=== PATIENT | male | born 1960 | race Caucasian/White ===

== ENCOUNTER 2016-06-24 10:37 | Outpatient (CLI) | payer OTHER ==
[~2016-06-24] VITALS: Ht 167.6 cm; Wt 46.8 kg
[~2016-06-24 10:37] MED LIST: DOCU-144 PO; DULR PR; HYDR-3498 PO; PANT40TA3 PO
[2016-06-24 10:49] VITALS: BP 140/80; PULSE 70; RESP 18; Ht 167.6 cm; Wt 46.8 kg
--- NOTE | 2016-06-24 11:49 | CONS ---
[facility] SUBSEQUENT OUTPATIENT CONSULTATION NOTE DATE OF CONSULTATION: 06/24/2016 PLACE OF SERVICE: [facility] Today's Assessment & Plan: A very pleasant 55-year-old gentleman well known to me from his chavez with pancreatic cancer, status post Whipple procedure May 2015 presenting with a left inguinal hernia that appears to be symptomatic. Given strong evidence for progression of disease, it is very important for patient to start chemotherapy with different regimen with hopes of response. Any elective operation in this setting will only take time away from potentially life sustaining therapy and therefore not indicated. I discussed this with patient after discussions with Dr. Briggs and careful review of the data. He appears to understand and agrees with the plan. With above assessment, I recommended the followin. F/u with Dr. Briggs as soon as possible with resumption of different line chemotherapy 2. F/u with us prn Thank you again for allowing us to continue to participate in the care of this very pleasant gentleman and his wonderful family. If there are any questions, please feel free to call me at [phone]. TOTAL VISIT TIME: 45 minutes of which more than half was spent in [id number] discussion with the patient (no family present) as well as coordination of care between multiple physicians and providers. Disclaimer: Inadvertent spelling and grammatical errors are likely due to EHR/ dictation software use and do not reflect on the quality of delivered patient care. Also, please note that the electronic time recorded on this node does not necessarily reflect the actual time of the visit. Updated Clinical Summary: A very pleasant 53-year-old gentleman without significant past medical history prior to his initial presentation in April 2013 for pancreatobiliary abnormalities when he presented with painless jaundice to [facility]. At that time, his only comorbidity was chronic smoking. His jaundice resolved after stent placement. He was followed in a multidisciplinary fashion and treated with the thought of a benign process such as biliary stone disease as the main working diagnosis of his presentation. This approach changed in the ensuing next few months given the patient's increasing pancreatic duct dilatation, presence of a 2 cm mass in the head of the pancreas, although biopsy was negative but was accompanied with progressively increasing CA19-9 levels. I was very concerned about the changes the patient was showing and I had strongly recommended that the patient and family consider undergoing further evaluation and possible consideration for a Whipple procedure. I spent quite a bit of time with the patient and his sister reviewing all findings including detailed review of all his images that we have available from 04/2013. This included review of 2 CT scans as well as 2 MRCP scans and his ERCP pictures. I reviewed the anatomy and the natural history and pathophysiology of pancreatic cancer with the help of printed diagrams of the region as well as using a model of the pancreas and expressed to them my concerns for his changes. Even though we did not have a biopsy-proven malignancy at hand, I had recommended that we strongly consider surgical removal of this area to ensure our ability to be able to impact the patient's survival, should this eventually basket turner to be a malignancy. Obviously, this was stressing the patient and family, but I did believe that they understood my sense of urgency. Despite our best efforts to get the patient through the necessary workup and consideration for a Whipple procedure, the patient was lost to follow up after his 07/18/2014 meeting with me. After reconnecting with the patient and family we had a follow-up CT scan that unfortunately showed possible significant worsening of his pancreatic process. Our thought at that point was aggressive pancreatic malignancy given the cystic mass structures that we had seen in the tail of the pancreas. Given these new findings, we thought that it would be highly unlikely that the patient can benefit from surgical intervention for the pancreatic process, but in order to explore all available options after multidisciplinary consideration, our recommendation was for the patient to undergo a diagnostic laparoscopy for the sole purpose of detecting whether there is obvious metastatic disease to the rest of the peritoneal cavity. This was done on 11/30/2014 and no obvious evidence of metastatic disease was found. Subsequent to this, the patient underwent chemotherapy in conjunction with radiation therapy. His CA-19-9 level peaked at 3500 and his repeat levels on where 408. BMI in November [address] scan 05/22/2015 of abdomen and pelvis shows continued interval decrease in size of the patient's pancreatic head mass with decreased pancreatic ductal dilatation and continued significant interval decrease in size of previously seen enlarged peripancreatic lymph nodes. During his last few visits with us, he appeared to remain overall stable and slightly improved given 4 pound weight gain. Most recent CT scan done on 2015 showed continued improvement in head of the pancreas mass and surrounding lymphadenopathy. Note that the CT reports significant decrease and resolution of mesenteric enhancing lesions that were seen on prior CT in October 2014. I carefully reviewed all of these images and reports. There was no reported enhancing mesenteric or peritoneal nodules that could be seen on the October or March CT in 2014. This mentioned lymph node enlargement in the area, but it would be difficult to ascertain how much of the lymph node enlargements were due to malignancy and how much were due to pancreatitis and inflammation. Given the resolution of significant inflammation around the tail and body of the pancreas, my impression was that these lymph nodes could potentially be inflammatory in nature and not represent metastatic disease. In my opinion, this did not preclude the patient from having surgery (normally, presence of metastatic disease from pancreatic malignancy would be an absolute contraindication for further surgical intervention and we firmly believe this in our practice). At this point, patient had received adequate and what appeared to be effective chemotherapy and given lack of obvious extrapancreatic spread and rather remarkable response, I believed it would be appropriate for us to have another surgical exploration with the goal of completion of Whipple procedure if there were no obvious intraoperative contraindications. I explained this to the patient in detail and reviewed the operation, risks, benefits, and alternatives in detail and answered all his questions to the best my ability. Patient appeared to understand and wishes to proceed. Note that there was no family present during my last 2 visits with the patient. We also presented the patient in a multidisciplinary tumor board and the consensus of the tumor board was in general agreement with our plans although there was discussion about ability to perform an R0 resection in this setting given the inflammation seen around vessels. For a detailed report of my consultation with patient and family, please refer to my multiple separate consultation note and progress notes. Status post Whipple procedure (partial pancreaticoduodenectomy with removal of the head of the pancreas and primary anastomosis). complex portal vein venorrhaphy, and wedge liver resection segment 3 on 06/12/2015. Drain fluid amylase less than 30 on 06/17/2015 and drain DC'd at bedside. Patient DC'd home on 06/17/2015. Postoperative multidisciplinary tumor board recommendation was to consider additional radiation to the area of the uncinate process margin due to microscopic positive disease as well as additional chemotherapy with gemcitabine with Abraxane. This can be done hopefully in the next few months once adequate recovery has taken place. Status post radiation therapy delivery of 9 davion in 4 fractions starting and ending 09/12/2015. CA19-9 2546 05/29/16 (64 on 05/09/13). CT scan in April of 2016 that also supports presence of a left inguinal hernia. Unfortunately, it also shows ill-defined soft-tissue encasing the SMA and narrowing the SMV, compatible with local carcinomatosis. Additional soft tissue noted more inferiorly extending into the root of the mesentery and retroperitoneum. There is also evidence for peritoneal metastases in the upper abdomen, with the dominant lesion increased in size since 02/2016 exam concerning for progression. Enhancing tumor implant in the left anterior abdominal wall and hypoattenuating left hepatic metastasis. Comorbidities: 1. History of regular smoking and drinking, but no other major reported health problems prior to 2014 issues above. 2. Above-mentioned history of painless jaundice and the workup as reviewed above. S/p Whipple and chemoradiation and chemotherapy 3. Status post above-mentioned ERCPs and Whipple 4. S/p three prior hernia repairs in the past (? how many on which side, but reports both sides were repaired in the past with quick recovery; all 3 done on a and by next Wednesday, patient had returned to work. HISTORY OF PRESENT ILLNESS: Patient is a very pleasant 55-year-old gentleman well known to me for treatment of his pancreatic malignancy as outlined above, representing for consultation regarding L groin pain. Reports intermittent crampy pain, worse with activity, better with pain medications. Has had 3 prior hernia repairs in the past. No reported changes in his bowel or bladder habits or blood in the stool or urine. He does not report any changes in his hearing or vision, difficulty with breathing or swallowing. No new skin rashes, joint pain, musculoskeletal disease, neurologic, psychiatric, or psychologic problems either. + weight loss and hair loss with ongoing cancer care; stopped chemo 2-3 weeks ago. Plan is restart of FOLFOX in 2-3 weeks. ALLERGIES: NO KNOWN DRUG ALLERGIES. HOME MEDICATIONS: See EHR SOCIAL HISTORY: The patient lives at home. He does report drinking whiskey on an occasional basis and also smoking for many years. No history of intravenous drug use. FAMILY HISTORY: The patient's father from abdominal cancer which was thought to be colon cancer, but details are missing. No obvious prior hepatobiliary or pancreatic type of tumors. REVIEW OF SYSTEMS: Other than the above-mentioned, there are no other pertinent positives or pertinent negatives in a complete 14-point review of systems. PHYSICAL EXAMINATION: GENERAL: The patient appears to be a very pleasant gentleman of [place] descent, appearing older than stated age and in no acute distress. His BMI is 16.7. VITAL SIGNS: Temperature is 97.7. Blood pressure 140/80, pulse 70, respiratory rate 18, pulse oximetry 99% on room air. HEENT: His head is normocephalic and atraumatic. His extraocular muscles and hearing are grossly intact bilaterally and symmetrically. His sclerae are nonicteric. His oral cavity is clear and his oral mucosa appeared to be pink and moist. NECK: Supple. There is no lymphadenopathy or JVD. There is no submental, submandibular or supraclavicular lymphadenopathy. CHEST: Rises symmetrically with each breath, and he is breathing comfortably. He has no audible wheezes, rales or rhonchi. HEART: His pulse is regular and palpable on the right wrist. His carotid pulses are also palpable bilaterally and symmetrically. His capillary refill is normal. ABDOMEN: Soft, nontender, and nondistended. His prior Whipple operation incision is clean, dry and intact without any evidence of erythema, edema, discharge or hernia. There is a small raised area on the lateralmost aspect of the left side of the incision that appears to be a suture granuloma. The right groin shows no evidence of any hernia with Valsalva maneuver. Left groin area shows a bulge that can easily be reduced and is mildly tender to palpation without any changes of skin overlying it. The area does get bigger with Valsalva maneuver, indicating the presence of a hernia. EXTREMITIES: Lower extremities contain no pitting edema bilaterally and symmetrically. NEUROLOGIC: He is awake, alert, and follows commands appropriately. LABORATORY DATA: 05/29/16: WBC 2.7; plt 147; Cr 0.59; CA19-9 2546 (64 on 05/09/13) ; alk phos 141; 2014: Hepatitis C antibody nonreactive, hepatitis B core antibody nonreactive, hepatitis A antibody reactive. IMAGING: The patient had a CT scan in April of 2016 that also supports presence of a left inguinal hernia. Unfortunately, it also shows ill-defined soft-tissue encasing the SMA and narrowing the SMV, compatible with local carcinomatosis. Additional soft tissue noted more inferiorly extending into the root of the mesentery and retroperitoneum. There is also evidence for peritoneal metastases in the upper abdomen, with the dominant lesion increased in size since 02/2016 exam concerning for progression. Enhancing tumor implant in the left anterior abdominal wall and hypoattenuating left hepatic metastasis. Dictated By: STACY SHAFFER/NTS Conf#: [id number] DID#: [id number] CC: OPAL PERDOMO MD; RAMESH BRIGGS MD;*EndCC* MTDD
== END 2016-06-24 16:51 | disposition home or self-care (01) ==
LOC: HPC 10:37
PROVIDERS: ATTEND Transplant Surgery
DX: C25.9 Malignant neoplasm of pancreas, unspecified (principal); R17 Unspecified jaundice; F17.200 Nicotine dependence, unspecified, uncomplicated
CPT/HCPCS: G0463

== ENCOUNTER 2016-07-13 10:04 | Day surgery (SDC) | payer OTHER ==
[2016-07-13] VITALS (11 sets, daily range): BP systolic 116–161; BP diastolic 53–95; PULSE 60–89; RESP 16–35; Ht 165.1 cm; Wt 43.7 kg
[~2016-07-13] VITALS: Ht 165.1 cm; Wt 43.7 kg
[~2016-07-13 10:04] MED LIST changes: +PROPOFOL 200 MG INJ ONE
--- NOTE | 2016-07-13 12:17 | HPN ---
Date/Time of Note Date/Time of Note DATE: 07/13/16 TIME: 12:16 Interval H&P Admission Note Pt. seen H&P reviewed: No system changes Pt. seen H&P reviewed. No system changes (I attest that I have seen and examined the patient and reviewed the operation in detail, as well as its risks , benefits and alternatives of the operation). I attest that I have seen and examined the patient and reviewed in detail the operation, and its associated risks, benefits and alternative. I have answered all the patient's questions to the best of my ability and the patient wishes to proceed. Please refer to rest of electronic medical record for additional updates. STACY GUO M.D. Jul 13, 2016 12:17
[2016-07-13] MEDS ORDERED: MIDAZOLAM 1 MG/ML 2 ML INJ ONE (12:20)
[2016-07-13] MEDS ORDERED: BUPIVACAINE 0.25%/EPI (SDV) 30 ML INJ ONE (12:20)
[2016-07-13] MEDS ORDERED: METOCLOPRAMIDE 10 MG INJ ONE (12:20)
[2016-07-13] MEDS ORDERED: ROCURONIUM 50 MG INJ ONE (12:20)
[2016-07-13] MEDS ORDERED: POLYMYXIN/BACITRACIN 1L IRRIG ONE (12:20)
[2016-07-13] MEDS ORDERED: CEFAZOLIN 2 GM/50 ML (PMX) 50 ML IVPB ONE (12:30)
[2016-07-13] MEDS ORDERED: D5W-0.45 NACL + KCL 20 MEQ 1,000 ML IV SCH (12:30)
[2016-07-13] MEDS ORDERED: PHENYLephrine (100 MCG/ML) 5ML SYG ONE (12:43)
[2016-07-13] MEDS ORDERED: CEFAZOLIN 1 GM INJ ONE (12:44)
[2016-07-13] MEDS ORDERED: ROPIVACAINE 0.2% 20 ML VIAL ONE (13:30)
[2016-07-13] MEDS ORDERED: NEOSTIGMINE 3 MG/3 ML SYRINGE ONE (13:53)
[2016-07-13] MEDS ORDERED: GLYCOPYRROLATE 0.4 MG INJ ONE (13:53)
[2016-07-13] MEDS ORDERED: LIDOCAINE 2% (SDV) 5 ML INJ ONE (14:00)
[2016-07-13] MEDS ORDERED: ONDANSETRON 4 MG INJ IV PRN (14:00)
[2016-07-13] MEDS ORDERED: DIPHENHYDRAMINE 50 MG INJ IV PRN (14:00)
[2016-07-13] MEDS ORDERED: OXYCODONE/ACETAMINOPHEN (5/325) TAB PO PRN ×2 (14:00)
[2016-07-13] MEDS ORDERED: MEPERIDINE 25 MG INJ IV PRN (14:00)
[2016-07-13] MEDS ORDERED: HYDROmorphONE (0.2 MG/ML) 10ML SYG IV PRN ×3 (14:00)
[2016-07-13] MEDS ORDERED: METOCLOPRAMIDE 10 MG INJ IV PRN (14:00)
--- NOTE | 2016-07-13 14:15 | OPR ---
Date/Time of Note Date/Time of Note DATE: 07/13/16 TIME: 14:11 Operative Report Free Text/Dictation [facility] Immediate Post Operative Note: Pre-op Diagnosis: L inguinal hernia, recurrent and stage 4 metastatic pancreas cancer, s/p Whipple procedure Post-Op Diagnosis: L inguinal hernia, recurrent and stage 4 metastatic pancreas cancer, s/p Whipple procedure Procedure: Recurrent L inguinal hernia repair, open (no mesh) Surgeon: Mari Orozco MD Lift Team Technician: None Anesthesia: 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 STACY OROZCO M.D. Jul 13, 2016 14:14
[2016-07-13] MEDS ORDERED: BISACODYL 10 MG SUPP PR PRN (14:30)
[2016-07-13] MEDS ORDERED: DOCUSATE SODIUM 100 MG CAP PO PRN (14:30)
[2016-07-13] MEDS ORDERED: HYDROCODONE/APAP (5/325) TAB PO PRN ×2 (14:30)
--- NOTE | 2016-07-13 22:29 | OPR ---
[facility] Outpatient Operative Note DATE OF OPERATION: 07/13/2016 PLACE OF SERVICE: [facility] Pre-op Diagnosis: 1. Symptomatic L inguinal hernia 2. History of regular smoking and drinking, but no other major reported health problems prior to 2013 issues above. 3. History of painless jaundice and the workup as reviewed below. S/p Whipple and chemoradiation and chemotherapy 4. Status post ERCPs and Whipple 4. S/p three prior hernia repairs in the past (? how many on which side, but reports both sides were repaired in the past with quick recovery; all 3 done on a and by wednesday, patient had returned to work. Post-Op Diagnosis: 1. Symptomatic L inguinal hernia 2. History of regular smoking and drinking, but no other major reported health problems prior to 2013 issues above. 3. History of painless jaundice and the workup as reviewed below. S/p Whipple and chemoradiation and chemotherapy 4. Status post ERCPs and Whipple 4. S/p three prior hernia repairs in the past (? how many on which side, but reports both sides were repaired in the past with quick recovery; all 3 done on a and by wednesday, patient had returned to work. Procedure: Open L inguinal hernia repair (no mesh) Surgeon: Mari Orozco MD Civil Drafter: None Anesthesia: ZARI Anesthesiologist: Beena Alamo MD Findings: Recurrent L inguinal hernia Updated Clinical Summary: A very pleasant 53-year-old gentleman without significant past medical history prior to his initial presentation in April 2013 for pancreatobiliary abnormalities when he presented with painless jaundice to [facility]. At that time, his only comorbidity was chronic smoking. His jaundice resolved after stent placement. He was followed in a multidisciplinary fashion and treated with the thought of a benign process such as biliary stone disease as the main working diagnosis of his presentation. This approach changed in the ensuing next few months given the patient's increasing pancreatic duct dilatation, presence of a 2 cm mass in the head of the pancreas, although biopsy was negative but was accompanied with progressively increasing CA19-9 levels. I was very concerned about the changes the patient was showing and I had strongly recommended that the patient and family consider undergoing further evaluation and possible consideration for a Whipple procedure. I spent quite a bit of time with the patient and his sister reviewing all findings including detailed review of all his images that we have available from 04/2013. This included review of 2 CT scans as well as 2 MRCP scans and his ERCP pictures. I reviewed the anatomy and the natural history and pathophysiology of pancreatic cancer with the help of printed diagrams of the region as well as using a model of the pancreas and expressed to them my concerns for his changes. 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 Obviously, this was stressing the patient and family, but I did believe that they understood my sense of urgency. Despite our best efforts to get the patient through the necessary workup and consideration for a Whipple procedure, the patient was lost to follow up after his 07/18/2014 meeting with me. After reconnecting with the patient and family we had a follow-up CT scan that unfortunately showed possible significant worsening of his pancreatic process. Our thought at that point was aggressive pancreatic malignancy given the cystic mass structures that we had seen in the tail of the pancreas. Given these new findings, we thought that it would be highly unlikely that the patient can benefit from surgical intervention for the pancreatic process, but in order to explore all available options after multidisciplinary consideration, our recommendation was for the patient to undergo a diagnostic laparoscopy for the sole purpose of detecting whether there is obvious metastatic disease to the rest of the peritoneal cavity. This was done on 11/30/2014 and no obvious evidence of metastatic disease was found. Subsequent to this, the patient underwent chemotherapy in conjunction with radiation therapy. His CA-19-9 level peaked at 3500 and his repeat levels on where 408. BMI in November [address] scan 05/22/2015 of abdomen and pelvis shows continued interval decrease in size of the patient's pancreatic head mass with decreased pancreatic ductal dilatation and continued significant interval decrease in size of previously seen enlarged peripancreatic lymph nodes. During his last few visits with us, he appeared to remain overall stable and slightly improved given 4 pound weight gain. Most recent CT scan done on 2015 showed continued improvement in head of the pancreas mass and surrounding lymphadenopathy. Note that the CT reports significant decrease and resolution of mesenteric enhancing lesions that were seen on prior CT in October 2014. I carefully reviewed all of these images and reports. There was no reported enhancing mesenteric or peritoneal nodules that could be seen on the October or March CT in 2014. This mentioned lymph node enlargement in the area, but it would be difficult to ascertain how much of the lymph node enlargements were due to malignancy and how much were due to pancreatitis and inflammation. Given the resolution of significant inflammation around the tail and body of the pancreas, my impression was that these lymph nodes could potentially be inflammatory in nature and not represent metastatic disease. In my opinion, this did not preclude the patient from having surgery (normally, presence of metastatic disease from pancreatic malignancy would be an absolute contraindication for further surgical intervention and we firmly believe this in our practice). At this point, patient had received adequate and what appeared to be effective chemotherapy and given lack of obvious extrapancreatic spread and rather remarkable response, I believed it would be appropriate for us to have another surgical exploration with the goal of completion of Whipple procedure if there were no obvious intraoperative contraindications. I explained this to the patient in detail and reviewed the operation, risks, benefits, and alternatives in detail and answered all his questions to the best my ability. Patient appeared to understand and wishes to proceed. Note that there was no family present during my last 2 visits with the patient. We also presented the patient in a multidisciplinary tumor board and the consensus of the tumor board was in general agreement with our plans although there was discussion about ability to perform an R0 resection in this setting given the inflammation seen around vessels. For a detailed report of my consultation with patient and family, please refer to my multiple separate consultation note and progress notes. Status post Whipple procedure (partial pancreaticoduodenectomy with removal of the head of the pancreas and primary anastomosis). complex portal vein venorrhaphy, and wedge liver resection segment 3 on 06/12/2015. Drain fluid amylase less than 30 on 06/17/2015 and drain DC'd at bedside. Patient DC'd home on 06/17/2015. Postoperative multidisciplinary tumor board recommendation was to consider additional radiation to the area of the uncinate process margin due to microscopic positive disease as well as additional chemotherapy with gemcitabine with Abraxane. This can be done hopefully in the next few months once adequate recovery has taken place. Status post radiation therapy delivery of 9 davion in 4 fractions starting and ending 09/12/2015. CA19-9 [id number] 05/29/16 (64 on 05/09/13). CT scan in April of 2016 that also supports presence of a left inguinal hernia. Unfortunately, it also shows ill-defined soft-tissue encasing the SMA and narrowing the SMV, compatible with local carcinomatosis. Additional soft tissue noted more inferiorly extending into the root of the mesentery and retroperitoneum. There is also evidence for peritoneal metastases in the upper abdomen, with the dominant lesion increased in size since 02/2016 exam concerning for progression. Enhancing tumor implant in the left anterior abdominal wall and hypoattenuating left hepatic metastasis. Comorbidities: 1. History of regular smoking and drinking, but no other major reported health problems prior to 2014 issues above. 2. Above-mentioned history of painless jaundice and the workup as reviewed above. S/p Whipple and chemoradiation and chemotherapy 3. Status post above-mentioned ERCPs and Whipple 4. S/p three prior hernia repairs in the past (? how many on which side, but reports both sides were repaired in the past with quick recovery; all 3 done on a and by next Wednesday, patient had returned to work. OPERATIVE DETAILS: After obtaining informed consent, the patient was brought into the operating room and was placed in a normal supine position where successful general endotracheal tube anesthesia was performed. The patient's groin was prepped and draped in the usual sterile fashion after clipping the hair with clippers, and then we called a surgical time-out where patient's identification, date of , nature of the operation, presence of needed equipment, and any other concerns were agreed and reviewed by all members of the operating room team. I then made a skin incision in the left inguinal area after injecting the site with 0.25% Marcaine with epinephrine using scalpel going through the skin and then cautery to go through the subcutaneous fat. Due to the reoperative nature , the anatomy was significantly distorted. I could not identify the ilioinguinal or the genitofemoral nerves. I did go through a small amount of very thin appearing external fascia and could identify and dissect the contents of the cord going into the left scrotum. There appeared to be an incarcerated amount of omentum that was coming out of the area of the Ridge's ligament which appeared to be at the edge of where the mesh would have been. We identified the mesh itself and then after very careful dissection were able to circumferentially get around the area of the omentum. We were careful to make sure that there were no intestinal contents within this. The area of the opening was only about 5 or 6 mm and there was no intestine within the incarcerated omentum. Once I pared down the amount of the sac, I went ahead and placed a stick tie using 3-0 Vicryl suture to then help transect the incarcerated omentum and the hernia sac and sent this to pathology for permanent sections. We then dropped the rest of the patient's side omentum into the abdominal cavity and then closed the 5 mm skin incision using interrupted 2-0 PDS suture [id number] (x2). This closed the defect very nicely and there was no need to use any further mesh to support the area. We then ensured adequate hemostasis and then closed the anterior fascia using 3-0 Vicryl suture followed by washing the wounds again and then closing the skin using running 4-0 Monocryl suture. Light dressing was then applied. I made sure that the testicles were inside of the scrotum. At the end the operation, both the sponge count and needle count were reportedly correct x2. The patient tolerated procedure without any reported complications. ESTIMATED BLOOD LOSS: Less than 5 mL. BLOOD OR BLOOD PRODUCT TRANSFUSIONS: None. SPECIMENS: Hernia sac along with omentum. COMPLICATIONS: None. DISPOSITION: To PACU. Disclaimer: Inadvertent spelling and grammatical errors are likely due to EHR/ dictation use and do not reflect on the quality of the delivered patient care. Dictated By: STACY SHAFFER/MITRA Conf#: [id number] DID#: [id number] MUKESH
== END 2016-07-13 15:38 | disposition home or self-care (01) ==
LOC: SDS 10:04
PROVIDERS: ATTEND Transplant Surgery
DX: K40.90 Unilateral inguinal hernia, without obstruction or gangrene, not specified as recurrent (principal); C79.89 Secondary malignant neoplasm of other specified sites; C25.9 Malignant neoplasm of pancreas, unspecified; Z87.891 Personal history of nicotine dependence
CPT/HCPCS: 49505; 88302; J0690; J1170; J2250; J2370; J2710; J2765; J2795; Z7512; Z7610

== ENCOUNTER 2016-07-16 14:00 | Emergency (ER) | payer OTHER ==
[~2016-07-16] VITALS: Ht 165.1 cm; Wt 65.0 kg
[~2016-07-16 14:00] MED LIST changes: -PROPOFOL 200 MG INJ ONE
[2016-07-16 14:13] VITALS: Ht 165.1 cm; Wt 65.0 kg
[2016-07-16] MEDS ORDERED: SOD CHLORIDE 0.9% 1,000 ML IV STA (14:37)
[2016-07-16 15:23] LABS: ADD SCAN DIFF NO
[2016-07-16 15:25] LABS: BASOPHILS % 0.3 % (0.0-2.0); EOSINOPHILS # 0.3 10^3/ul (0.0-0.5); EOSINOPHILS % 4.2 % (0.0-7.0); HEMATOCRIT 37.9 % (42.0-52.0); HEMOGLOBIN 12.8 g/dl (14.0-18.0); LYMPHOCYTES # 0.8 10^3/ul (0.8-2.9); LYMPHOCYTES % 10.3 % (15.0-51.0); MEAN CORPUSCULAR HGB CONC 33.8 g/dl (32.0-37.0); MEAN CORPUSCULAR VOLUME 91.8 fl (82.0-101.0); MEAN PLATELET VOLUME 9.4 fl (7.4-10.4); MONOCYTE # 0.7 10^3/ul (0.3-0.9); MONOCYTES % 8.9 % (0.0-11.0); PLATELET COUNT 233 10^3/UL (140-415); RED BLOOD COUNT 4.13 10^6/ul (4.70-6.10); WHITE BLOOD COUNT 7.9 10^3/ul (4.8-10.8)
[2016-07-16] MEDS ORDERED: HYDROmorphONE 1 MG/ML SYG IV STA (15:30)
[2016-07-16 15:33] LABS: ALBUMIN 3.3 g/dl (3.3-4.9); CHLORIDE 101 mmol/L (97-110); POTASSIUM 3.8 mmol/L (3.5-5.1); SODIUM 141 mmol/L (135-144)
[2016-07-16 15:35] LABS: CREATININE 0.59 mg/dl (0.61-1.24); INR 0.99; PROTIME 13.1 Sec (12.2-14.2)
[2016-07-16 15:36] LABS: ALANINE AMINOTRANSFERASE 27 IU/L (13-69); ALKALINE PHOSPHATASE 115 IU/L (42-121); ANION GAP 13 (8-16); ASPARTATE AMINO TRANSFERASE 25 IU/L (15-46); BILIRUBIN,INDIRECT 0.1 mg/dl (0-1.1); BILIRUBIN,TOTAL 0.1 mg/dl (0.2-1.3); BLOOD UREA NITROGEN 11 mg/dl (7-20); CARBON DIOXIDE 31 mmol/L (21-31); GLUCOSE 107 mg/dl (70-220); TOTAL PROTEIN 6.3 g/dl (6.1-8.1)
--- NOTE | 2016-07-16 15:43 | RADRPT ---
PROCEDURE: CT Abdomen and Pelvis without contrast. CLINICAL INDICATION: Pancreatic cancer, left upper quadrant lump TECHNIQUE: CT of the abdomen and pelvis was performed on a multi-detector scanner without IV contr ast. Coronal and sagittal images were reformatted from the axial data set. One or more of the foll owing dose reduction techniques were used: automated exposure control, adjustment of the mA and/or kV according to patient size, use of iterative reconstruction technique. CTDI = 4.32 mGy. DLP = 274 .93 mGy-cm. COMPARISON: CT, 05/26/2016; PET CT, 11/05/2015 FINDINGS: CT abdomen: The lung bases are clear. The heart size is normal, without pericardial effusion. The patient is s tatus post Whipple procedure, including cholecystectomy, partial gastrectomy, gastrojejunostomy, par tial pancreatectomy, pancreaticojejunostomy, choledochojejunostomy, and duodenectomy. Poorly define d mass is again seen anteriorly in the left hepatic lobe, measuring approximately 2.8 cm (3-38), pre viously 2.4 cm (2-36). No biliary dilatation is identified. Poorly defined mass is seen in the street creatic resection bed, measuring approximately 3.4 x 2.3 cm (3-65), previously 3.3 x 2.4 cm. Spleen , adrenal glands and kidneys are unremarkable. No urolithiasis or obstructive uropathy is identifie d. Solid appearing ovoid nodule is seen involving left upper quadrant anterior abdominal wall musculatu re, measuring approximately 3.2 x 2.0 cm (3-48), previously 2.6 x 1.5 cm. Solid peritoneal nodules are again seen in the right upper quadrant measuring up to approximately 2.0 x 1.6 cm (3-47), previo usly 1.9 x 1.3 cm. The aorta is of normal caliber. Aortic vascular calcifications are present. CT pelvis: No bowel obstruction, free intraperitoneal air or abscess is identified. Mild retained fecal materi al is suggestive of constipation. No diverticulosis, diverticulitis or colitis is identified. The appendix is well visualized and normal. Urinary bladder is grossly unremarkable. No pelvic mass, f ree fluid or lymphadenopathy is identified. The surrounding osseous structures are remarkable for degenerative spondylosis of the spine. No ost eolytic or osteoblastic lesion is detected. IMPRESSION: 1. Metastatic implant is seen involving left upper quadrant anterior abdominal wall musculature, mi ldly increased in size when compared to the prior CT, presumably corresponding to the palpable lump noted in the clinical history. 2. Additional metastatic peritoneal nodules, left hepatic metastasis, and recurrent neoplasm in the pancreatic resection bed are again seen, all of which are stable and/or mildly increased in size, a s described above, suggestive of neoplastic progression. 3. The patient is again noted to be status post Whipple procedure. 4. Mild retained fecal material may indicate constipation. RPTAT: EE .Rivera Sears MD, MD Date Time Electronically viewed and signed by .Rivera Sears MD, MD on 07/16/2016 15:43 .R/
[2016-07-16] MEDS ORDERED: HYDR-902 PO (15:45)
[2016-07-16 15:52] LABS: TROPONIN-I < 0.012 ng/ml (0.00-0.12)
[2016-07-16 16:23] LABS: ADD UMIC NO; URINE BILIRUBIN (Dip) NEGATIVE (NEGATIVE); URINE BLOOD (Dip) NEGATIVE (NEGATIVE); URINE COLOR LT. YELLOW (YELLOW); URINE GLUCOSE (Dip) NEGATIVE (NEGATIVE); URINE KETONES (Dip) NEGATIVE (NEGATIVE); URINE LEUKOCYTE ESTERASE (Dip) NEGATIVE (NEGATIVE); URINE NITRITE (Dip) NEGATIVE (NEGATIVE); URINE TOTAL PROTEIN (Dip) NEGATIVE (NEGATIVE); URINE UROBILINOGEN (Dip) 0.2 E.U./dL (0.1-1.0)
[2016-07-16 17:04] VITALS: BP 165/89; PULSE 45; RESP 18
[2016-07-16] MEDS ORDERED: OXYC-209 PO (17:14)
--- NOTE | 2016-07-16 19:26 | ERD ---
ER Documentation Chief Complaint Date/Time DATE: 07/16/16 TIME: 19:11 Chief Complaint LEFT UPPER QUADRANT PAIN,Pt HAS PANCREATIC CANCER.ON CHEMO. HPI 55-year-old man here with complaints of left upper quadrant abdominal and left lateral chest wall pain similar to previous episodes. Patient does have a history of metastatic pancreatic cancer and is status post Whipple procedure. He was diagnosed in 2013 and has undergone both chemo and radiation therapy. He follows up regularly with his primary care physician, hematology oncologist, and surgeon. Patient denies recent jaundice, no vomiting or diarrhea, no blood per rectum or melena, no recent increased weight loss, no chest pain or shortness of breath. ROS All systems reviewed and are negative except as per history of present illness. Medications Home Meds Active Scripts Oxycodone HCl/Acetaminophen (Percocet 10-325 mg Tablet) 1 Each Tablet, 1 EACH PO TID for PAIN LEVEL 6-10, #20 TAB Prov:DEMETRIA MCCLELLAN MD 07/16/16 Reported Medications Hydrocodone/Acetaminophen ([place] 10-325 Tablet) 1 Each Tablet, 1 EACH PO TID, TAB 07/16/16 Discontinued Scripts Bisacodyl* (Bisacodyl*) 10 Mg Supp, 10 MG MS BID Y for CONSTIPATION, #1 SUPP Prov:LENIN BARAJAS MD 06/17/15 Pantoprazole* (Protonix*) 40 Mg Tablet.dr, 40 MG PO DAILY, #1 TAB Prov:LENIN BARAJAS MD 06/17/15 Hydrocodone Bit/Acetaminophen (Anexsia 5-325 Mg Tablet) 1 Tab Tab, 1 TAB PO Q4H Y for PAIN LEVEL 4-7, #1 TAB Prov:LENIN BARAJAS MD 06/17/15 Docusate Sodium* (Colace*) 100 Mg Cap, 100 MG PO BID Y for CONSTIPATION, #1 CAP Prov:LENIN BARAJAS MD 06/17/15 Allergies Allergies: Coded Allergies: No Known Allergy (Unverified , 07/16/16) PMhx/Soc Metastatic pancreatic cancer status post chemo and radiation therapy, previous pancreaticoduodenectomy with removal of pancreatic head and portal vein venorrhaphy with wedge liver resection. Opioid dependence History of Surgery: Yes (THREE HERNIA REPAIR, PORT-A-CATH RIGHT UPPER CHEST) Anesthesia Reaction: No Hx Neurological Disorder: No Hx Respiratory Disorders: No Hx Cardiac Disorders: No Hx Psychiatric Problems: No Hx Miscellaneous Medical Probl: Yes (PANCREATIC CANCER) Hx Alcohol Use: No Hx Substance Use: No Hx Tobacco Use: Yes (ONE PACK A DAY) Smoking Status: Current every day smoker FmHx Family History: No diabetes Physical Exam Vitals Vital Signs Date Time Temp Pulse Resp B/P Pulse Ox O2 Delivery O2 Flow Rate FiO2 07/16/16 17:04 45 18 165/89 98 Room Air 07/16/16 14:13 98.9 81 18 132/82 98 Physical Exam GENERAL: Well-developed, well-nourished, appears dehydrated, in pain HEENT: Dry mucous membranes, pink conjunctiva, no cervical spine tenderness or step-off deformities, no goiter, no jaundice or icterus, extraocular movements intact without pain. No submandibular induration, and no pharyngeal erythema NEURO: Alert and oriented 3, cranial nerves II through XII intact bilaterally, pupils equal round reactive to light, no focal deficits or facial asymmetry, sensation intact distally Strength 5/5 in upper and lower extremities bilaterally CARDIAC: Bradycardic and regular, no murmurs rubs or gallops LUNGS: Clear bilaterally no wheezing crackles or stridor ABDOMEN: Soft nontender, no guarding, no rigidity, no rebound, no psoas sign no obturator sign. Normoactive bowel sounds SKIN: Warm and dry to touch, no abrasions, contusions, or hematomas, no lacerations, no ecchymosis, no target lesions, and without ulcers EXTREMITIES: No clubbing cyanosis or edema, calves are bilaterally symmetrical, no Homans sign, no popliteal cord sign. Distal pulses equal and bilateral PSYCH: Normal affect without agitation or irritability Result Diagram: 07/16/16 1500 07/16/16 1500 Results 24 hrs Laboratory Tests Test 07/16/16 15:00 07/16/16 15:45 White Blood Count 7.910^3/ul Red Blood Count 4.1310^6/ul Hemoglobin 12.8g/dl Hematocrit 37.9% Mean Corpuscular Volume 91.8fl Mean Corpuscular Hemoglobin 31.0pg Mean Corpuscular Hemoglobin Concent 33.8g/dl Red Cell Distribution Width 14.0% Platelet Count 57460^3/UL Mean Platelet Volume 9.4fl Neutrophils % 76.0% Lymphocytes % 10.3% Monocytes % 8.9% Eosinophils % 4.2% Basophils % 0.3% Nucleated Red Blood Cells % 0.0/100WBC Neutrophils # 6.010^3/ul Lymphocytes # 0.810^3/ul Monocytes # 0.710^3/ul Eosinophils # 0.310^3/ul Basophils # 0.010^3/ul Nucleated Red Blood Cells # 0.010^3/ul Prothrombin Time 13.1Sec Prothrombin Time Ratio 1.0 INR International Normalized Ratio 0.99 Sodium Level 141mmol/L Potassium Level 3.8mmol/L Chloride Level 101mmol/L Carbon Dioxide Level 31mmol/L Anion Gap 13 Blood Urea Nitrogen 11mg/dl Creatinine 0.59mg/dl Glucose Level 107mg/dl Calcium Level 9.0mg/dl Total Bilirubin 0.1mg/dl Direct Bilirubin 0.00mg/dl Indirect Bilirubin 0.1mg/dl Aspartate Amino Transf (AST/SGOT) 25IU/L Alanine Aminotransferase (ALT/SGPT) 27IU/L Alkaline Phosphatase 115IU/L Troponin I < 0.012ng/ml Total Protein 6.3g/dl Albumin 3.3g/dl Globulin 3.00g/dl Albumin/Globulin Ratio 1.10 Lipase < 10U/L Urine Color LT. YELLOW Urine Clarity CLEAR Urine pH 7.0 Urine Specific [place] 1.015 Urine Ketones NEGATIVE Urine Nitrite NEGATIVE Urine Bilirubin NEGATIVE Urine Urobilinogen 0.2 E.U./dL Urine Leukocyte Esterase NEGATIVE Urine Hemoglobin NEGATIVE Urine Glucose NEGATIVE% Urine Total Protein NEGATIVE Current Medications Medications (Trade) Dose Ordered Sig/Veronika Route PRN Reason Start Time Stop Time Status Last Admin Dose Admin Sodium Chloride (NS) 1,000 ml @ 1,000 mls/hr Q1H STAT IV 07/16/16 14:37 07/16/16 15:36 DC 07/16/16 14:48 Hydromorphone HCl (Dilaudid) 1 mg ONCE STAT IV 07/16/16 15:30 07/16/16 15:31 DC 07/16/16 15:38 Procedures/MDM IV line was established patient was placed on cardiac monitor technician rhythm strip revealed a sinus bradycardia at about 60 bpm with upright P and T waves. Patient was afebrile. EKG performed, read by me revealed a sinus bradycardia 52 bpm, normal axis, right ventricular conduction delay with a QRS duration of 102 ms, no concerning ST elevations or depressions noted. CT scan of the abdomen and pelvis was performed revealing metastatic mass to the left upper quadrant near the pancreas and increased nodules, mass has grown moderately in size although was there on previous CT scan. Please refer to radiologist dictation for full report. CBC was normal, electrolytes unremarkable, liver function tests normal, troponin was negative. Urine analysis was negative for infection. Patient's pain was controlled and he was hydrated here in the ED. Differential diagnoses considered, included but not limited to acute coronary syndrome, pulmonary embolism, aortic dissection, abdominal aortic aneurysm, sepsis, stroke, meningitis, encephalitis, pneumonia, appendicitis, cholecystitis , bowel obstruction, pyelonephritis, nephrolithiasis, cystitis, as well as metabolic, hematologic, and electrolyte abnormalities. As well as abscess, cellulitis, fractures, and dislocations. Patient feels much better at this time, and vital signs are normal, symptoms have improved. I did give strict instructions to return to the ED if symptoms continue or worsen, patient will otherwise follow-up with primary care physician. Patient understood instructions and agreed to plan. Departure Diagnosis: Primary Impression: Pancreatic cancer Pancreatic malignancy location: head of pancreas Qualified Code: C25.0 - Malignant neoplasm of head of pancreas Additional Impressions: Metastasis from pancreatic cancer Chronic pain Chronic pain type: chronic pain syndrome Qualified Code: G89.4 - Chronic pain syndrome Dehydration Condition: Good Patient Instructions: What Is Pancreatic Cancer?, Chronic Pain DEMETRIA MCCLELLAN MD Jul 16, 2016 19:26
== END 2016-07-16 17:23 | disposition home or self-care (01) ==
LOC: E/R 14:00
DX: C25.0 Malignant neoplasm of head of pancreas (principal); G89.4 Chronic pain syndrome; E86.0 Dehydration; F17.210 Nicotine dependence, cigarettes, uncomplicated
CPT/HCPCS: 74176; 80053; 81003; 83690; 84484; 85025; 85610; 93005; J1170; J7030; 36415; 96374

== ENCOUNTER 2016-07-22 11:14 | Outpatient (CLI) | payer OTHER ==
[~2016-07-22] VITALS: Ht 167.6 cm; Wt 44.1 kg
[2016-07-22 11:14] VITALS: BP 142/89; PULSE 110; RESP 20; Ht 167.6 cm; Wt 44.1 kg
[~2016-07-22 11:14] MED LIST changes: -DOCU-144 PO; -DULR PR; -HYDR-3498 PO; +HYDR-902 PO; +OXYC-209 PO; -PANT40TA3 PO
--- NOTE | 2016-07-22 16:46 | PN ---
Date/Time of Note Date/Time of Note DATE: 07/22/16 TIME: 16:39 Assessment/Plan Assessment/Plan Assessment/Plan [facility] Progress Note Date of Service: 07/22/16 Today's Impression & Plan: Overall stable but with stage 4 pancreas malignancy pain indicating spread. L inguinal region healing well without issues. Only hope is that patient responds to FOLFIRINOX as planned by Dr. Kennedy (discussed over the phone). With above assessment, I've recommended the following for today: 1. F/u with PCP and with Dr. Kennedy 2. F/u with us prn Thank you again for your great care of this very pleasant patient and wonderful family. If there are any questions, please feel free to call me at [phone]. TOTAL VISIT TIME: 20 minutes of which more than half was spent in [id number] discussion with the patient, possibly including family, as well as coordination of care between multiple physicians and providers. Disclaimer: Inadvertent spelling or grammatical errors are likely due to EHR/ dictation software use and do not reflect on the overall quality of patient care. Updated Clinical Summary: A very pleasant 53-year-old gentleman without significant past medical history prior to his initial presentation in April 2013 for pancreatobiliary abnormalities when he presented with painless jaundice to [facility]. At that time, his only comorbidity was chronic smoking. His jaundice resolved after stent placement. He was followed in a multidisciplinary fashion and treated with the thought of a benign process such as biliary stone disease as the main working diagnosis of his presentation. This approach changed in the ensuing next few months given the patient's increasing pancreatic duct dilatation, presence of a 2 cm mass in the head of the pancreas, although biopsy was negative but was accompanied with progressively increasing CA19-9 levels. I was very concerned about the changes the patient was showing and I had strongly recommended that the patient and family consider undergoing further evaluation and possible consideration for a Whipple procedure. I spent quite a bit of time with the patient and his sister reviewing all findings including detailed review of all his images that we have available from 04/2013. This included review of 2 CT scans as well as 2 MRCP scans and his ERCP pictures. I reviewed the anatomy and the natural history and pathophysiology of pancreatic cancer with the help of printed diagrams of the region as well as using a model of the pancreas and expressed to them my concerns for his changes. 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 Obviously, this was stressing the patient and family, but I did believe that they understood my sense of urgency. Despite our best efforts to get the patient through the necessary workup and consideration for a Whipple procedure, the patient was lost to follow up after his 07/18/2014 meeting with me. After reconnecting with the patient and family we had a follow-up CT scan that unfortunately showed possible significant worsening of his pancreatic process. Our thought at that point was aggressive pancreatic malignancy given the cystic mass structures that we had seen in the tail of the pancreas. Given these new findings, we thought that it would be highly unlikely that the patient can benefit from surgical intervention for the pancreatic process, but in order to explore all available options after multidisciplinary consideration, our recommendation was for the patient to undergo a diagnostic laparoscopy for the sole purpose of detecting whether there is obvious metastatic disease to the rest of the peritoneal cavity. This was done on 11/30/2014 and no obvious evidence of metastatic disease was found. Subsequent to this, the patient underwent chemotherapy in conjunction with radiation therapy. His CA-19-9 level peaked at 3500 and his repeat levels on where 408. BMI in November [address] scan 05/22/2015 of abdomen and pelvis shows continued interval decrease in size of the patient's pancreatic head mass with decreased pancreatic ductal dilatation and continued significant interval decrease in size of previously seen enlarged peripancreatic lymph nodes. During his last few visits with us, he appeared to remain overall stable and slightly improved given 4 pound weight gain. Most recent CT scan done on 2015 showed continued improvement in head of the pancreas mass and surrounding lymphadenopathy. Note that the CT reports significant decrease and resolution of mesenteric enhancing lesions that were seen on prior CT in October 2014. I carefully reviewed all of these images and reports. There was no reported enhancing mesenteric or peritoneal nodules that could be seen on the October or March CT in 2014. This mentioned lymph node enlargement in the area, but it would be difficult to ascertain how much of the lymph node enlargements were due to malignancy and how much were due to pancreatitis and inflammation. Given the resolution of significant inflammation around the tail and body of the pancreas, my impression was that these lymph nodes could potentially be inflammatory in nature and not represent metastatic disease. In my opinion, this did not preclude the patient from having surgery (normally, presence of metastatic disease from pancreatic malignancy would be an absolute contraindication for further surgical intervention and we firmly believe this in our practice). At this point, patient had received adequate and what appeared to be effective chemotherapy and given lack of obvious extrapancreatic spread and rather remarkable response, I believed it would be appropriate for us to have another surgical exploration with the goal of completion of Whipple procedure if there were no obvious intraoperative contraindications. I explained this to the patient in detail and reviewed the operation, risks, benefits, and alternatives in detail and answered all his questions to the best my ability. Patient appeared to understand and wishes to proceed. Note that there was no family present during my last 2 visits with the patient. We also presented the patient in a multidisciplinary tumor board and the consensus of the tumor board was in general agreement with our plans although there was discussion about ability to perform an R0 resection in this setting given the inflammation seen around vessels. For a detailed report of my consultation with patient and family, please refer to my multiple separate consultation note and progress notes. Status post Whipple procedure (partial pancreaticoduodenectomy with removal of the head of the pancreas and primary anastomosis). complex portal vein venorrhaphy, and wedge liver resection segment 3 on 06/12/2015. Drain fluid amylase less than 30 on 06/17/2015 and drain DC'd at bedside. Patient DC'd home on 06/17/2015. Postoperative multidisciplinary tumor board recommendation was to consider additional radiation to the area of the uncinate process margin due to microscopic positive disease as well as additional chemotherapy with gemcitabine with Abraxane. This can be done hopefully in the next few months once adequate recovery has taken place. Status post radiation therapy delivery of 9 davion in 4 fractions starting and ending 09/12/2015. CA19-9 [id number] 05/29/16 (64 on 05/09/13). CT scan in April of 2016 that also supports presence of a left inguinal hernia. Unfortunately, it also shows ill-defined soft-tissue encasing the SMA and narrowing the SMV, compatible with local carcinomatosis. Additional soft tissue noted more inferiorly extending into the root of the mesentery and retroperitoneum. There is also evidence for peritoneal metastases in the upper abdomen, with the dominant lesion increased in size since 02/2016 exam concerning for progression. Enhancing tumor implant in the left anterior abdominal wall and hypoattenuating left hepatic metastasis. S/p elective L inguinal hernia repair (no mesh; recurrence at Ridge's lig corner of the old mesh; metastatic disease in the hernia sac) 07/13/16. Comorbidities: 1. History of regular smoking and drinking, but no other major reported health problems prior to 2014 issues above. 2. Above-mentioned history of painless jaundice and the workup as reviewed above. S/p Whipple and chemoradiation and chemotherapy 3. Status post above-mentioned ERCPs and Whipple 4. S/p three prior hernia repairs in the past (? how many on which side, but reports both sides were repaired in the past with quick recovery; all 3 done on a and by next Wednesday, patient had returned to work. Subjective: No major events or complaints; Sig abd pain and chest wall pain, but no pain in the area of the L inguinal hernia repair. Some nausea, but no v/d; no sob or cp ; + flatus; + BM; + activity Objective: Vitals: See below Exam: GENERAL: On exam, the patient was sitting in a chair and appeared to be comfortable and in no acute distress. ABDOMEN: Soft, nontender and nondistended. Incisions are clean, dry and intact without any evidence of erythema, edema, discharge, or hernia. There are no peritoneal signs or guarding. SKIN: Skin appears to be pink and feels warm to touch. NEUROLOGIC: Patient is awake, alert, and follows commands appropriately. Exam/Review of Systems Vital Signs Vitals Vital Signs Date Time Temp Pulse Resp B/P Pulse Ox O2 Delivery O2 Flow Rate FiO2 07/22/16 11:14 97.7 110 20 142/89 98 Room Air STACY GUO M.D. Jul 22, 2016 16:45
== END 2016-07-22 16:55 | disposition home or self-care (01) ==
LOC: HPC 11:14
PROVIDERS: ATTEND Transplant Surgery
DX: C25.9 Malignant neoplasm of pancreas, unspecified (principal); K40.90 Unilateral inguinal hernia, without obstruction or gangrene, not specified as recurrent
CPT/HCPCS: G0463

== ENCOUNTER 2016-11-28 16:34 | Inpatient (IN) | payer MEDICARE, OTHER ==
[~2016-11-28] VITALS: Ht 165.1 cm; Wt 50.5 kg
[2016-11-28 09:00] VITALS: BP 113/55; RESP 21
[~2016-11-28 16:34] MED LIST changes: +CIPR500T4 PO; +HYDR-906 PO; +LORA10TA3 PO; +METR500T PO; +ONDA4TAB11 PO; +UDLOM GTB
[2016-11-28] MEDS ORDERED: SODIUM CHLORIDE 0.9% 1L BAG IV* STA (16:43)
[2016-11-28] MEDS ORDERED: CEFEPIME 2GM/50 ML (PMX) 50 ML IVPB STA (16:43)
[2016-11-28] MEDS ORDERED: VANCOMYCIN 1 GM (PMX) 250 ML IVPB ONE (17:00)
[2016-11-28] MEDS ORDERED: ONDANSETRON 4 MG INJ IV STA (17:07)
[2016-11-28] MEDS ORDERED: HYDROmorphONE 1 MG/ML SYG IV STA (17:07)
[2016-11-28 17:21] LABS: ABNORMAL IP MESSAGE 1; BASOPHILS % 0.1 % (0.0-2.0); HEMATOCRIT 40.9 % (42.0-52.0); HEMOGLOBIN 13.6 g/dl (14.0-18.0); LYMPHOCYTES # 0.2 10^3/ul (0.8-2.9); MEAN CORPUSCULAR HEMOGLOBIN 31.9 pg (29.0-33.0); MEAN CORPUSCULAR HGB CONC 33.3 g/dl (32.0-37.0); MEAN PLATELET VOLUME 10.7 fl (7.4-10.4); MONOCYTE # 0.3 10^3/ul (0.3-0.9); MONOCYTES % 3.8 % (0.0-11.0); NEUTROPHILS % 93.3 % (39.0-77.0); PLATELET COUNT 154 10^3/UL (140-415); POSITIVE DIFF @See below; RED BLOOD COUNT 4.26 10^6/ul (4.70-6.10); RED CELL DISTRIBUTION WIDTH 15.3 % (11.5-14.5); WHITE BLOOD COUNT 7.5 10^3/ul (4.8-10.8)
--- NOTE | 2016-11-28 17:26 | RADRPT ---
PROCEDURE: XR Chest. CLINICAL INDICATION: Sepsis TECHNIQUE: Single frontal chest x-ray. COMPARISON: 06/11/2015 FINDINGS: There is a right-sided Port-A-Cath in place with tip in the right atrium . Low lung volumes with li near atelectasis in the right lung base is present. No alveolar infiltrates, edema, or effusions.. The cardiomediastinal silhouette is unremarkable. The osseous structures are intact. IMPRESSION: No acute cardiopulmonary disease. Low lung volumes with mild right basilar atelectasis. Right-sided Port-A-Cath in place. RPTAT: QQ .Pedrito Valverde MD, MD Date Time Electronically viewed and signed by .Pedrito Valverde MD, MD on 11/28/2016 17:25 .L/
[2016-11-28 17:37] LABS: INR 1.27; PARTIAL THROMBOPLASTIN TIME 25.7 Sec (25.0-35.0); PT RATIO 1.3
[2016-11-28 17:40] LABS: ALANINE AMINOTRANSFERASE 97 IU/L (13-69); ALBUMIN 2.6 g/dl (3.3-4.9); ALBUMIN/GLOBULIN RATIO 0.66; ALKALINE PHOSPHATASE 533 IU/L (42-121); ANION GAP 17 (8-16); ASPARTATE AMINO TRANSFERASE 158 IU/L (15-46); BILIRUBIN,INDIRECT 0.7 mg/dl (0-1.1); BILIRUBIN,TOTAL 0.7 mg/dl (0.2-1.3); BLOOD UREA NITROGEN 75 mg/dl (7-20); CALCIUM 8.6 mg/dl (8.4-10.2); CARBON DIOXIDE 30 mmol/L (21-31); CHLORIDE 105 mmol/L (97-110); CREATININE 1.01 mg/dl (0.61-1.24); GLUCOSE 77 mg/dl (70-220); SODIUM 146 mmol/L (135-144); TOTAL PROTEIN 6.5 g/dl (6.1-8.1)
[2016-11-28] MEDS ORDERED: NA BICARBONATE 8.4% 50 ML SYG IV STA (17:43)
[2016-11-28 17:52] LABS: TROPONIN-I < 0.012 ng/ml (0.00-0.12)
[2016-11-28] MEDS ORDERED: SOD CHLORIDE 0.9% 1,000 ML IV STA (18:00)
[2016-11-28] MEDS ORDERED: ACETAMINOPHEN 325 MG TAB PO PRN ×2 (19:00→20:00)
[2016-11-28] MEDS ORDERED: ONDANSETRON 4 MG INJ IV PRN ×2 (19:00→20:00)
--- NOTE | 2016-11-28 19:09 | ERA ---
ER Documentation Chief Complaint Date/Time DATE: 11/28/16 TIME: 19:08 Chief Complaint weakness started today hx pancreatic CA HPI Patient is a 56-year-old male with pancreatic cancer presents with abdominal pain and weakness. He came from home. He has no fevers. He has low blood pressure. He was brought in by ambulance. The symptoms have been there for the past few weeks but are getting worse. He has had a paracentesis in the past. He has not been able to eat or drink. His oncologist is Dr. Megha Kennedy. ROS All systems reviewed and are negative except as per history of present illness. Medications Home Meds Active Scripts Metronidazole* (Flagyl*) 500 Mg Tablet, 500 MG PO TID, #30 TAB Prov:COLT VALDEZ DO 09/15/16 Ciprofloxacin Hcl* (Ciprofloxacin Hcl*) 500 Mg Tablet, 500 MG PO BID, #20 TAB Prov:COLT VALDEZ DO 09/15/16 Ondansetron (Zofran Odt) 4 Mg Tab.rapdis, 4 MG PO Q6 for NAUSEA, #10 Prov:COLT VALDEZ DO 09/15/16 Loratadine* (Loratadine*) 10 Mg Tablet, 10 MG PO DAILY, #30 TAB Prov:COLT VALDEZ DO 09/15/16 Diphenoxylate Hcl-Atropine* (Lomotil*) 5 Ml Soln, 5 ML GTB Q6H Y for DIARRHEA, # 14 ML Prov:COLT VALDEZ DO 09/15/16 Hydrocodone/Acetaminophen ([place] 5-325 Tablet) 1 Each Tablet, 1 EACH PO Q6 for PAIN, #20 TAB Prov:COLT VALDEZ DO 09/15/16 Oxycodone HCl/Acetaminophen (Percocet 10-325 mg Tablet) 1 Each Tablet, 1 EACH PO TID for PAIN LEVEL 6-10, #20 TAB Prov:DEMETRIA MCCLELLAN MD 07/16/16 Reported Medications Hydrocodone/Acetaminophen ([place] 10-325 Tablet) 1 Each Tablet, 1 EACH PO TID, TAB 07/16/16 Allergies Allergies: Coded Allergies: No Known Allergy (Unverified , 07/16/16) PMhx/Soc History of Surgery: Yes (THREE HERNIA REPAIR, PORT-A-CATH RIGHT UPPER CHEST) Anesthesia Reaction: No Hx Neurological Disorder: No Hx Respiratory Disorders: No Hx Cardiac Disorders: No Hx Psychiatric Problems: No Hx Miscellaneous Medical Probl: Yes (PANCREATIC CANCER) Hx Alcohol Use: No Hx Substance Use: No Hx Tobacco Use: Yes (ONE PACK A DAY) Smoking Status: Current every day smoker FmHx Family History: diabetes Physical Exam Vitals Vital Signs Date Time Temp Pulse Resp B/P Pulse Ox O2 Delivery O2 Flow Rate FiO2 11/28/16 18:15 57 20 114/86 98 Room Air 11/28/16 17:29 62 20 113/82 98 Room Air 11/28/16 16:39 97.5 86 17 89/56 85 Physical Exam Const: Moderate distress, cachexia Head: Atraumatic Eyes: Normal Conjunctiva ENT: Normal External Ears, Nose and Mouth. Extremely dry mucous membranes Neck: Full range of motion..~ No meningismus. Resp: Clear to auscultation bilaterally Cardio: Regular rate and rhythm, no murmurs Abd: Soft, mildly distended abdomen with diffuse tenderness to palpation Skin: Pale skin, cachexia Back: No midline or flank tenderness Ext: No cyanosis, or edema Neur: Awake and alert, diffuse weakness Psych: Normal Mood and Affect Result Diagram: 11/28/16 1705 11/28/16 170 Results 24 hrs Laboratory Tests Test 11/28/16 17:05 White Blood Count 7.510^3/ul Red Blood Count 4.2610^6/ul Hemoglobin 13.6g/dl Hematocrit 40.9% Mean Corpuscular Volume 96.0fl Mean Corpuscular Hemoglobin 31.9pg Mean Corpuscular Hemoglobin Concent 33.3g/dl Red Cell Distribution Width 15.3% Platelet Count 32102^3/UL Mean Platelet Volume 10.7fl Neutrophils % 93.3% Lymphocytes % 2.0% Monocytes % 3.8% Eosinophils % 0.0% Basophils % 0.1% Nucleated Red Blood Cells % 0.0/100WBC Neutrophils # 7.010^3/ul Lymphocytes # 0.210^3/ul Monocytes # 0.310^3/ul Eosinophils # 0.010^3/ul Basophils # 0.010^3/ul Nucleated Red Blood Cells # 0.010^3/ul Prothrombin Time 16.0Sec Prothrombin Time Ratio 1.3 INR International Normalized Ratio 1.27 Activated Partial Thromboplast Time 25.7Sec Sodium Level 146mmol/L Potassium Level 6.0mmol/L Chloride Level 105mmol/L Carbon Dioxide Level 30mmol/L Anion Gap 17 Blood Urea Nitrogen 75mg/dl Creatinine 1.01mg/dl Glucose Level 77mg/dl Lactic Acid Level 1.9mmol/L Calcium Level 8.6mg/dl Total Bilirubin 0.7mg/dl Direct Bilirubin 0.00mg/dl Indirect Bilirubin 0.7mg/dl Aspartate Amino Transf (AST/SGOT) 158IU/L Alanine Aminotransferase (ALT/SGPT) 97IU/L Alkaline Phosphatase 533IU/L Troponin I < 0.012ng/ml Total Protein 6.5g/dl Albumin 2.6g/dl Globulin 3.90g/dl Albumin/Globulin Ratio 0.66 Current Medications Medications (Trade) Dose Ordered Sig/Veronika Route PRN Reason Start Time Stop Time Status Last Admin Dose Admin Sodium Chloride 1550 ml 1,550 ml BOLUS OVER 2 HOURS STAT IV* 11/28/16 16:43 11/28/16 16:45 DC 11/28/16 17:17 Cefepime HCl 50 ml @ 100 mls/hr ONCE STAT IVPB 11/28/16 16:43 11/28/16 17:12 DC Vancomycin HCl (Vancocin) 250 ml @ 125 mls/hr ONCE ONCE IVPB 11/28/16 17:00 11/28/16 18:59 DC 11/28/16 17:17 Hydromorphone HCl (Dilaudid) 1 mg ONCE STAT IV 11/28/16 17:07 11/28/16 17:08 DC 11/28/16 17:17 Ondansetron HCl (Zofran Inj) 4 mg ONCE STAT IV 11/28/16 17:07 11/28/16 17:08 DC 11/28/16 17:17 Sodium Bicarbonate 50 ml 50 ml ONCE STAT IV 11/28/16 17:43 11/28/16 17:44 DC 11/28/16 18:20 Sodium Chloride (NS) 1,000 ml @ 1,000 mls/hr Q1H STAT IV 11/28/16 18:00 11/28/16 18:59 DC 11/28/16 18:25 Ondansetron HCl (Zofran Inj) 4 mg ER BRIDGE PRN IV NAUSEA AND/OR VOMITING 11/28/16 19:00 11/29/16 18:59 Acetaminophen (Tylenol Tab) 650 mg ER BRIDGE PRN PO MILD PAIN/FEVER 11/28/16 19:00 11/29/16 18:59 Procedures/MDM EKG read by me: Rate/Rhythm: Regular rate and rhythm at a rate of 67 Intervals: Normal Impression: No evidence of ischemia or arrhythmia PROCEDURE: XR Chest. CLINICAL INDICATION: Sepsis TECHNIQUE: Single frontal chest x-ray. COMPARISON: 06/11/2015 FINDINGS: There is a right-sided Port-A-Cath in place with tip in the right atrium . Low lung volumes with linear atelectasis in the right lung base is present. No alveolar infiltrates, edema, or effusions.. The cardiomediastinal silhouette is unremarkable. The osseous structures are intact. IMPRESSION: No acute cardiopulmonary disease. Low lung volumes with mild right basilar atelectasis. Right-sided Port-A-Cath in place. RPTAT: QQ .Pedrito Valverde MD, MD Date Time Electronically viewed and signed by .Pedrito Valverde MD, on 11/28/2016 17:25 CT scan of the abdomen and pelvis is pending at this time. Patient is a 56-year-old male presents with severe dehydration and cachexia. He has a history of pancreatic cancer. He was given 2.5 L of fluid and broad- spectrum antibiotics empirically. However at this point I do not see any signs of serious bacterial infection or sepsis. The patient has hyperkalemia with a potassium of 6.0 and was given bicarb 1 amp IV. The patient will be admitted to the care of Dr. Flowers from the panel team to a telemetry bed. He has anemia with a hemoglobin 13.6 but does not require transfusion. Unfortunately the patient's prognosis is poor given his diagnosis of pancreatic cancer. A discussion with the family regarding goals of care and possible hospice would be appropriate. Critical Care: Time: 35 minutes excluding all billable procedures. Treatments/Evaluations: Close monitoring and treatment of unstable vital signs, cardiorespiratory, and neurologic status, while maintaining tight balance of fluid, respiratory, and cardiac interventions. Departure Diagnosis: Primary Impression: Hyperkalemia Additional Impressions: Acute weakness Abdominal pain Qualified Code: R10.84 - Generalized abdominal pain Cachexia Dehydration Condition: Serious SANNA KAPOOR MD Nov 28, 2016 19:09
[2016-11-28] MEDS ORDERED: SOD CHLORIDE 0.45% 1,000 ML IV SCH (19:46)
[2016-11-28] MEDS ORDERED: HYDROCODONE/APAP (5/325) TAB PO PRN (20:00)
[2016-11-28] MEDS ORDERED: morphine 2 MG INJ IV PRN (20:00)
[2016-11-28] MEDS ORDERED: NA POLYST SULFON 15 GM/60 ML BTL PO ONE (20:00)
[2016-11-28] MEDS ORDERED: NA PHOSPHATE/BIPHOS 133 ML ENEMA PR PRN (20:00)
[2016-11-28] MEDS ORDERED: hydrALAzine 20 MG INJ IV PRN (20:00)
[2016-11-28] MEDS ORDERED: NITROGLYCERIN (SL) 0.4 MG TAB SL PRN (20:00)
[2016-11-28] MEDS ORDERED: DIPHENOXYLATE/ATROPINE 5 ML CUP GTB PRN (20:00)
[2016-11-28] MEDS ORDERED: LORAZEPAM 2 MG INJ IV PRN (20:00)
[2016-11-28] MEDS ORDERED: NACL 0.9% 3 ML SYG IV SCH (20:00)
[2016-11-28] MEDS ORDERED: MAGNESIUM HYDROXIDE 30ML CUP PO PRN (20:00)
[2016-11-28] MEDS ORDERED: DOCUSATE SODIUM 100 MG CAP PO PRN (20:00)
[2016-11-28 20:15] VITALS: TEMP 96.4
[2016-11-28 21:00] VITALS: BP 113/55; RESP 21
[2016-11-28 21:23] VITALS: PULSE 60
--- NOTE | 2016-11-28 21:45 | RADRPT ---
PROCEDURE: CT abdomen and pelvis without contrast. CLINICAL INDICATION: Pancreatic cancer. Abdominal pain TECHNIQUE: Noncontrast CT examination the abdomen and pelvis, with axial, sagittal and coronal refo rmatted images. CTDI: 5.27 mGy and DLP: 329.44 mGy-cm. COMPARISON: CT abdomen and pelvis dated 09/15/2016. FINDINGS: CT abdomen: Fibrotic banding versus discoid atelectasis in the dependent right lower lobe. The lung bases are o therwise clear. Likely changes of centrolobular emphysema and hyperinflation of COPD. There is gaby vation of the right hemidiaphragm. The heart size is normal, without pericardial thickening or effu boby. The patient is cachectic. Extensive moderate to severe ascites throughout the abdomen and pelvis. Leone boptimally visualized 37 mm mass may be present in the pancreatic head. IV contrast enhanced examin ation would be of further use. Previously seen pneumobilia is near completely resolved. Previously seen 25 mm left hepatic mass no w measures 49 mm in diameter. The liver is decreased in size over interval, now measuring 11 cm in t he craniocaudad dimension by 14 cm in AP dimension by 6 cm in the transverse dimension. The liver pr eviously measured 12 x 17 x 9 cm. The spleen is normal in size and homogeneous in density. The stomach as surgical changes, and other blanco the stomach is partially collapsed, but is grossly unremarkable. The gallbladder is not visua lized; and biliary tree is otherwise unremarkable and there is no evidence for biliary dilatation. The adrenal glands are symmetric and normal. The kidneys are symmetrically unremarkable as well. No renal calculus or obstructive uropathy or mass lesion is seen. The aorta is of normal caliber. Aortic vascular calcifications are present. There is no retroperit worrell lymphadenopathy. The rhett hepatis region is clear. The bowel and mesentery, as visualized, are equally unremarkable. Left upper quadrant abdominal rectus likely metastatic pancreatic neoplasm deposit is again seen, no w measuring 37 x 23 x 23 mm, and previously measured 28 x [address] pelvis: The small bowel loops situated within the pelvis are unremarkable. The pelvic organs are normal. T he pelvic sidewalls and inguinal regions are clear. The sigmoid colon contains a few diverticula; a nd rectum is unremarkable. No evident mass or adenopathy in the pelvis. No acute inflammation is se en. The appendix is not visualized. The surrounding osseous structures are remarkable for mild degenerative spondylosis of the spine. Tr ansitional vertebral anatomy on the left L5 with partial sacralization. No osteolytic or osteoblasti c lesion is detected. IMPRESSION: 1. Substantially increased moderate to severe ascites since 09/15/2016. 2. 49 mm hepatic metastatic pancreas neoplasm deposit is increased in size over the interval, previ ously measuring 25 mm. 3. Liver is decreased in size over interval. 4. Suspected 37 mm pancreatic head mass, although the pancreas and other abdominal viscera not well seen on this noncontrast study. 5. Left upper quadrant abdominal rectus likely metastatic pancreatic neoplasm deposit is increased in size over interval. RPTAT: [facility] Physician Tiffanie Date Time Electronically viewed and signed by Physician Tiffanie on 11/28/2016 21:45 RS/
[2016-11-28 21:47] VITALS: BMI 35.7
[2016-11-28] MEDS ORDERED: FENT1SPR SL (22:48)
[2016-11-28] MEDS ORDERED: FENTANYL SL PRN (23:00)
[2016-11-28] MEDS ORDERED: ZOLPIDEM 5 MG TAB PO PRN (23:00)
[2016-11-28] MEDS: HEPARIN 5,000 UNIT/0.5 ML VIAL SC SCH (23:29)
[2016-11-28 23:55] VITALS: BP 115/71; RESP 20
[2016-11-29] VITALS (10 sets, daily range): BP systolic 91–117; BP diastolic 68–80; PULSE 62–79; RESP 17–21
[2016-11-29] MEDS: ALBUMIN HUMAN 25% 100 ML IV SCH ×3 (00:16→16:45)
[2016-11-29] MEDS: PANTOPRAZOLE (EC) 40 MG TAB PO SCH (05:52)
[2016-11-29] MEDS: morphine 4 MG/ML VIAL IV PRN ×2 (05:53→09:44)
--- NOTE | 2016-11-29 07:36 | HP ---
Date/Time of Note Date/Time of Note DATE: 11/29/16 TIME: 07:33 Assessment/Plan VTE Prophylaxis VTE Prophylaxis Intervention: SCD's Lines/Catheters Urinary Cath still in place: No Assessment/Plan Assessment/Plan 1. Metastatic pancreatic cancer, with a history of Whipple procedure in the past -Per patient and family, he no longer is receiving chemo, last chemo being 3 months ago. Will notify his oncologist, Dr. Simms and his surgeon Dr. Orozco about his admission. -Patient is extremely cachectic. He reported poor p.o. intake. I believe he benefits from TPN. Will place a dietary consult -He will have physical therapy while in-house prior to discharge. -Family and patient himself are interested in being discharged to acute rehab and as such we will initiate the process. -He has a severe ascites. Ultrasound guided paracentesis has been ordered for him. He has had 2 paracentesis in the past, last one being 2 weeks ago -Pain management as needed 2. Generalized weakness: Secondary to above -See #1 for plan of care 3. Hyperkalemia - correct as needed 4. Abnormal LFTs: Consequence of the known metastatic cancer HPI/ROS Admit Date/Time Admit Date/Time Nov 28, 2016 at 18:48 Hx of Present Illness This is a 56-year-old male with a history of metastatic pancreatic cancer, with history of Whipple procedure who presented to the emergency department complaining of generalized weakness and abdominal distention. Patient is extremely cachectic and appears very weak. He is accompanied by his daughter who was at the bedside who also provides some history. He has been following with Dr. Orozco in the past and his oncologist is Dr. Simms. He still has Port- A-Cath but he patient and family requested to be removed saying that he no longer is receiving chemo. Last time he received the chemo was in 3 months ago. Patient also reported poor p.o. intake. He said he has been on a diuretic in the past but he said he stopped it because it was not working for him. When he presented to the ER, labs show a sodium of 146, potassium of 6, BUN [address] abdomen/pelvis shows the followin. Substantially increased moderate to severe ascites since 09/15/2016. 2. 49 mm hepatic metastatic pancreas neoplasm deposit is increased in size over the interval, previously measuring 25 mm. 3. Liver is decreased in size over interval. 4. Suspected 37 mm pancreatic head mass, although the pancreas and other abdominal viscera not well seen on this noncontrast study. 5. Left upper quadrant abdominal rectus likely metastatic pancreatic neoplasm deposit is increased in size over interval. PMH/Family/Social Social History Smoking Status: Current every day smoker Exam/Review of Systems Vital Signs Vitals Vital Signs Date Time Temp Pulse Resp B/P Pulse Ox O2 Delivery O2 Flow Rate FiO2 11/29/16 05:01 70 11/29/16 04:03 98.0 21 117/80 97 11/28/16 20:15 Room Air Intake and Output 11/28/16 11/28/16 11/29/16 15:00 23:00 07:00 Intake Total 3850 ml 600 ml Output Total 300 ml Balance 3850 ml 300 ml Exam Constitutional: frail, other (Patient is very cachectic and appears severely weak. ) Head: other (Bitemporal wasting) Respiratory: clear to auscultation, normal air movement Cardiovascular: nl pulses, regular rate and rhythm Gastrointestinal: distended, tender Extremities: other (Generalized muscle wasting) Labs Result Diagram: 11/28/16 1705 11/28/16 1705 Medications Medications Current Medications Ondansetron HCl (Zofran Inj) 4 mg Q6H PRN IV NAUSEA AND/OR VOMITING; Start 11/28 at 20:00 Acetaminophen (Tylenol Tab) 650 mg Q6H PRN PO PAIN LEVEL 1-3 OR FEVER; Start at 20:00 Acetaminophen/ Hydrocodone Bitart ([place] (5/325)) 1 tab Q6H PRN PO MODERATE PAIN LEVEL 4-6; Start 11/28/16 at 20:00 Docusate Sodium (Colace) 100 mg Q12H PRN PO CONSTIPATION; Start 11/28/16 at 20: 00 Magnesium Hydroxide (Milk Of Mag) 30 ml DAILY PRN PO CONSTIPATION; Start at 20:00 Sodium Biphosphate/ Sodium Phosphate (Fleet Enema) 133 ml DAILY PRN [place] CONSTIPATION; Start 11/28/16 at 20:00 Pantoprazole (Protonix Tab) 40 mg DAILY@06 PO Last administered on 11/29/16t 05: 52; Admin Dose 40 MG; Start 11/29/16 at 06:00 Heparin Sodium (Porcine) (Heparin (5000 Units/0.5 ml)) 5,000 unit Q12 SC Last administered on 11/28/16 23:29; Admin Dose 5,000 UNIT; Start 11/28/16 at 21:00 Lorazepam (Ativan) 0.5 mg Q6H PRN IV ANXIETY; Start 11/28/16 at 20:00 Hydralazine HCl (Apresoline) 10 mg Q6H PRN IV SBP > 180; Start 11/28/16 at 20:00 Nitroglycerin (Nitroglycerin (Sl Tab) 0.4 Mg) 1 tab Q5M PRN SL ANGINA; Start at 20:00 Diphenoxylate HCl/ Atropine (Lomotil Liquid Cup) 5 ml Q6H PRN GTB DIARRHEA; Start 11/28/16 at 20:00 Loratadine (Claritin) 10 mg DAILY PO ; Start 11/29/16 at 09:00 Morphine Sulfate 3 mg 3 mg Q4H PRN IV SEVERE PAIN LEVEL 7-10 Last administered on 11/29/16 05:53; Admin Dose 3 MG; Start 11/29/16 at 00:00 Albumin Human (Albumin Human 25%) 100 ml @ 100 mls/hr Q8H IV Last administered on 11/29/16 06:02; Admin Dose 100 MLS/HR; Start 11/28/16 at 23:00; Stop 11/29/16 at 15:59 Non-Formulary Medication 1 ea Q4H PRN SL Pain Last administered on 11/29/16 00: 12; Admin Dose 1 EA; Start 11/28/16 at 23:00 ISAIAS HAYES MD Nov 29, 2016 07:36
[2016-11-29 07:37] LABS: ADD UMIC NO; UR ASCORBIC ACID NEGATIVE (NEGATIVE); UR BILIRUBIN (Dip) NEGATIVE (NEGATIVE); UR BLOOD (Dip) NEGATIVE (NEGATIVE); UR CLARITY CLEAR (CLEAR); UR COLOR YELLOW (YELLOW); UR GLUCOSE (Dip) NEGATIVE (NEGATIVE); UR KETONES (Dip) NEGATIVE (NEGATIVE); UR LEUKOCYTE ESTERASE (Dip) NEGATIVE Leu/ul (NEGATIVE); UR NITRITE (Dip) NEGATIVE (NEGATIVE); UR SPECIFIC GRAVITY (Dip) 1.018 (1.003-1.030); UR TOTAL PROTEIN (Dip) NEGATIVE (NEGATIVE); UR UROBILINOGEN (Dip) NEGATIVE (NEGATIVE)
[2016-11-29 07:53] LABS: ABNORMAL IP MESSAGE 1; HEMOGLOBIN 10.4 g/dl (14.0-18.0); LYMPHOCYTES # 0.2 10^3/ul (0.8-2.9); LYMPHOCYTES % 2.5 % (15.0-51.0); MEAN CORPUSCULAR HEMOGLOBIN 30.3 pg (29.0-33.0); MEAN CORPUSCULAR HGB CONC 31.5 g/dl (32.0-37.0); MEAN CORPUSCULAR VOLUME 96.2 fl (82.0-101.0); MEAN PLATELET VOLUME 10.9 fl (7.4-10.4); MONOCYTE # 0.5 10^3/ul (0.3-0.9); MONOCYTES % 6.3 % (0.0-11.0); NEUTROPHIL # 7.3 10^3/ul (1.6-7.5); NEUTROPHILS % 90.6 % (39.0-77.0); PLATELET COUNT 101 10^3/UL (140-415); POSITIVE DIFF @See below; RED BLOOD COUNT 3.43 10^6/ul (4.70-6.10); RED CELL DISTRIBUTION WIDTH 15.1 % (11.5-14.5)
[2016-11-29 08:12] LABS: CHOL/HDL RATIO 1.5 RATIO
[2016-11-29 08:23] LABS: ALBUMIN 2.5 g/dl (3.3-4.9); ALBUMIN/GLOBULIN RATIO 0.78; BILIRUBIN,INDIRECT 0.6 mg/dl (0-1.1); BILIRUBIN,TOTAL 0.6 mg/dl (0.2-1.3); CALCIUM 7.6 mg/dl (8.4-10.2); CREATININE 0.83 mg/dl (0.61-1.24); POTASSIUM 3.9 mmol/L (3.5-5.1); TOTAL PROTEIN 5.7 g/dl (6.1-8.1)
[2016-11-29 08:44] LABS: THYROID STIMULATING HORMONE 1.04 MIU/L (0.465-4.680)
[2016-11-29] MEDS: LORATADINE 10 MG TAB PO SCH (09:44)
[2016-11-29] MEDS: HEPARIN 5,000 UNIT/0.5 ML VIAL SC SCH ×2 (09:50→21:30)
[2016-11-29] MEDS: HYDROmorphONE 1 MG/ML SYG IV PRN ×3 (10:58→17:32)
--- NOTE | 2016-11-29 10:59 | CONS ---
Date/Time of Note Date/Time of Note DATE: 11/29/16 TIME: 10:51 Assessment/Plan Assessment/Plan Additional Assessment/Plan Pancreatic cancer Severe pain out of control Fluid and electrolyte abnormality Transaminitis Acute renal insufficiency Will withhold any discussion concerning palliative care and first institute adequate pain control with Dilaudid low-dose continuous with as needed dosing by nursing continuous IV Tylenol and pulse steroids for pain control. Consultation Date/Type/Reason Admit Date/Time Nov 28, 2016 at 18:48 Date of Consultation: Nov 29, 2016 Hx of Present Illness 56-year-old gentleman who appears to be extremely emaciated and extreme distress at this time complaining of abdominal discomfort. Has a history of pancreatic cancer status post Whipple's procedure last chemotherapy given approximately 3 months. Patient presents with pain out of control, extremely debilitated at rest. States that his pain is primarily located in his abdomen without radiations into his back pelvis or chest. Denies nausea vomiting chest pain shortness of breath dizziness type locally disorientation, current control with admissions pain medications are not controlling his pain at this time. It is unknown what pain medications he was taking as an outpatient he is in such extremis at this time is not appropriate to do a detailed history. His brother is at the bedside and I have access to his current medical records current pain control medications include morphine and [place], pain is extreme and out of control affects his physical function mood sleeping and overall function. Current pain control medications do not alleviate his pain nor offer any measure of alleviation for any significant period of time. This was a initial starting dose and a very reasonable starting dose of opioids. There is no potential aberrant drug-related behavior at this gentleman has a valid diagnosis of malignancy and pain out of control severe and unremitting. Subjective hx not possible: pt critical status Constitutional: requiring IVF, requiring O2 (In extremis moaning and groaning) Cardiovascular: no complaints Gastrointestinal: other (Generalized abdominal pain in all 4 quadrants, tender without rebound) Musculoskeletal: swelling Neurologic: no complaints Social History Smoking Status: Current every day smoker Exam/Review of Systems Vital Signs Vitals Vital Signs Date Time Temp Pulse Resp B/P Pulse Ox O2 Delivery O2 Flow Rate FiO2 11/29/16 08:00 68 11/29/16 07:51 97.8 18 111/80 98 11/28/16 20:15 Room Air Intake and Output 11/28/16 11/28/16 11/29/16 15:00 23:00 07:00 Intake Total 3850 ml 600 ml Output Total 300 ml Balance 3850 ml 300 ml Exam Constitutional: alert, oriented, other (Moaning and groaning), well developed Psych: nl mood/affect, no complaints Head: atraumatic, normocephalic Neck: non-tender, supple Respiratory: clear to auscultation, normal air movement Cardiovascular: nl pulses, regular rate and rhythm Gastrointestinal: other (Generalized severe abdominal pain all 4 quadrants low active bowel sounds) Extremities: other (Bilateral lower extremity 4+ pitting edema) Neurological: BRACE END MAINS[place] FORMER II-XII intact, nl mental status, nl speech, nl strength Results Result Diagram: 11/29/1615 11/29/16 0715 Results 24 hrs Laboratory Tests Test 11/28/16 17:05 11/28/16 18:49 11/28/16 20:43 11/29/16 02:45 White Blood Count 7.5 # Red Blood Count 4.26 #L Hemoglobin 13.6 #L Hematocrit 40.9 #L Mean Corpuscular Volume 96.0 Mean Corpuscular Hemoglobin 31.9 Mean Corpuscular Hemoglobin Concent 33.3 Red Cell Distribution Width 15.3 H Platelet Count 154 Mean Platelet Volume 10.7 H Neutrophils % 93.3 H Lymphocytes % 2.0 L Monocytes % 3.8 Eosinophils % 0.0 Basophils % 0.1 Nucleated Red Blood Cells % 0.0 Neutrophils # 7.0 Lymphocytes # 0.2 L Monocytes # 0.3 Eosinophils # 0.0 Basophils # 0.0 Nucleated Red Blood Cells # 0.0 Prothrombin Time 16.0 #H Prothrombin Time Ratio 1.3 INR International Normalized Ratio 1.27 Activated Partial Thromboplast Time 25.7 Sodium Level 146 H Potassium Level 6.0 H Chloride Level 105 Carbon Dioxide Level 30 Anion Gap 17 H Blood Urea Nitrogen 75 H Creatinine 1.01 Glucose Level 77 Lactic Acid Level 1.9 1.2 1.2 Calcium Level 8.6 Total Bilirubin 0.7 Direct Bilirubin 0.00 Indirect Bilirubin 0.7 Aspartate Amino Transf (AST/SGOT) 158 H Alanine Aminotransferase (ALT/SGPT) 97 H Alkaline Phosphatase 533 H Troponin I < 0.012 Total Protein 6.5 Albumin 2.6 L Globulin 3.90 H Albumin/Globulin Ratio 0.66 Free Thyroxine 0.66 Urine Color YELLOW Urine Clarity CLEAR Urine pH 6.0 Urine Specific [place] 1.018 Urine Ketones NEGATIVE Urine Nitrite NEGATIVE Urine Bilirubin NEGATIVE Urine Urobilinogen NEGATIVE Urine Leukocyte Esterase NEGATIVE Urine Hemoglobin NEGATIVE Urine Glucose NEGATIVE Urine Total Protein NEGATIVE Test 11/29/16 07:14 11/29/16 07:15 Lipase < 10 L White Blood Count 8.0 Red Blood Count 3.43 L Hemoglobin 10.4 #L Hematocrit 33.0 L Mean Corpuscular Volume 96.2 Mean Corpuscular Hemoglobin 30.3 Mean Corpuscular Hemoglobin Concent 31.5 L Red Cell Distribution Width 15.1 H Platelet Count 101 #L Mean Platelet Volume 10.9 H Neutrophils % 90.6 H Lymphocytes % 2.5 L Monocytes % 6.3 Eosinophils % 0.0 Basophils % 0.0 Nucleated Red Blood Cells % 0.0 Neutrophils # 7.3 Lymphocytes # 0.2 L Monocytes # 0.5 Eosinophils # 0.0 Basophils # 0.0 Nucleated Red Blood Cells # 0.0 Sodium Level 150 H Potassium Level 3.9 # Chloride Level 112 H Carbon Dioxide Level 26 Anion Gap 16 Blood Urea Nitrogen 63 H Creatinine 0.83 Glucose Level 78 Hemoglobin A1c 4.9 Calcium Level 7.6 L Total Bilirubin 0.6 Direct Bilirubin 0.00 Indirect Bilirubin 0.6 Aspartate Amino Transf (AST/SGOT) 361 #H Alanine Aminotransferase (ALT/SGPT) 146 H Alkaline Phosphatase 555 H Total Protein 5.7 L Albumin 2.5 L Globulin 3.20 Albumin/Globulin Ratio 0.78 Triglycerides Level 25 Cholesterol Level 52 L LDL Cholesterol, Calculated 14 HDL Cholesterol 33 Cholesterol/HDL Ratio 1.5 Thyroid Stimulating Hormone (TSH) 1.040 Medications Medications Current Medications Ondansetron HCl (Zofran Inj) 4 mg Q6H PRN IV NAUSEA AND/OR VOMITING; Start 11/28 at 20:00 Acetaminophen (Tylenol Tab) 650 mg Q6H PRN PO PAIN LEVEL 1-3 OR FEVER; Start at 20:00 Acetaminophen/ Hydrocodone Bitart ([place] (5/325)) 1 tab Q6H PRN PO MODERATE PAIN LEVEL 4-6; Start 11/28/16 at 20:00 Docusate Sodium (Colace) 100 mg Q12H PRN PO CONSTIPATION; Start 11/28/16 at 20: 00 Magnesium Hydroxide (Milk Of Mag) 30 ml DAILY PRN PO CONSTIPATION; Start at 20:00 Sodium Biphosphate/ Sodium Phosphate (Fleet Enema) 133 ml DAILY PRN [place] CONSTIPATION; Start 11/28/16 at 20:00 Pantoprazole (Protonix Tab) 40 mg DAILY@06 PO Last administered on 11/29/16 05: 52; Admin Dose 40 MG; Start 11/29/16 at 06:00 Heparin Sodium (Porcine) (Heparin (5000 Units/0.5 ml)) 5,000 unit Q12 SC Last administered on 11/29/16 09:50; Admin Dose 5,000 UNIT; Start 11/28/16 at 21:00 Lorazepam (Ativan) 0.5 mg Q6H PRN IV ANXIETY; Start 11/28/16 at 20:00 Hydralazine HCl (Apresoline) 10 mg Q6H PRN IV SBP > 180; Start 11/28/16 at 20:00 Nitroglycerin (Nitroglycerin (Sl Tab) 0.4 Mg) 1 tab Q5M PRN SL ANGINA; Start at 20:00 Diphenoxylate HCl/ Atropine (Lomotil Liquid Cup) 5 ml Q6H PRN GTB DIARRHEA; Start 11/28/16 at 20:00 Loratadine 10 mg 10 mg DAILY PO Last administered on 11/29/16 09:44; Admin Dose 10 MG; Start 11/29/16 at 09:00 Albumin Human (Albumin Human 25%) 100 ml @ 100 mls/hr Q8H IV Last administered on 11/29/16 06:02; Admin Dose 100 MLS/HR; Start 11/28/16 at 23:00; Stop 11/29/16 at 15:59 Non-Formulary Medication 1 ea 1 ea Q4H PRN SL Pain Last administered on 00:12; Admin Dose 1 EA; Start 11/28/16 at 23:00 Potassium Chloride/Dextrose (D5W + KCl 20 Meq) 1,000 ml @ 100 mls/hr Q10H IV ; Start 11/29/16 at 10:00 Morphine Sulfate (morphine) 4 mg Q2H PRN IV SEVERE PAIN LEVEL 7-10; Start at 11:00 KEYONNA JAFFE Nov 29, 2016 10:59
[2016-11-29] MEDS ORDERED: morphine 4 MG/ML VIAL IV PRN (11:00)
[2016-11-29 11:42] LABS: MAGNESIUM 2.6 mg/dl (1.7-2.5); PHOSPHORUS 3.7 mg/dl (2.5-4.9)
[2016-11-29] MEDS: ACETAMINOPHEN 1000MG/100ML IV 100 ML IVPB SCH ×2 (12:00→17:44)
[2016-11-29] MEDS ORDERED: LIDOCAINE 1% (MPF) 5 ML VIAL ONE (16:18)
[2016-11-29] MEDS: D5W + KCL 20 MEQ 1,000 ML IV SCH ×2 (16:34→20:00)
--- NOTE | 2016-11-29 18:17 | CONS ---
Date/Time of Note Date/Time of Note DATE: 11/29/16 TIME: 18:03 Assessment/Plan Assessment/Plan Chief Complaint/Hosp Course 56 yo male with end stage pancreatic cancer. At this point patient is certainly not a candidate for any chemotherapy or other cancer therapies. I have spoke to him and his and they understand that patient is terminally ill and will likely pass away in the near future. He and his state he wants to be in a hosptial setting for his remaining days and does not want home hospice at this time. -appreciate palliative care involvement -cont Dilaudid QUICK MIXER OPERATOR per pain management recs -I have spoke to the primary care team who will arrange for in patient hospice Approximately 1 hour was spent at the patient's bedside, in speaking to his family, and in coordination of his care Problems: (1) Metastasis from pancreatic cancer Status: Chronic (2) Generalized weakness Status: Chronic (3) Cachexia Status: Chronic Consultation Date/Type/Reason Admit Date/Time Nov 28, 2016 at 18:48 Date of Consultation: Nov 29, 2016 Type of Consultation: oncology Reason for Consultation metastatic pancreatic cancer Referring Provider: KATLYN RODRIGES of Present Illness 56 yo male with end stage metastatic pancreatic cancer. Pt was diagnosed in 2013. He underwent a Whipple procedure in 2015 but unfortunately recurred soon after. He was started on chemotherapy with folfirinox but only received several months of treatment before he began to progress. Furthermore he became unable to tolerate the chemotherapy[u. For his cancer pain patietn underwent a celiac plexus nerve block about 2 months ago. He has not received chemotherapy in over 4 moths and has not come to clinic. he now presents with pain and failure to thrive. He has lost a significant amount of weight since I last saw him. He is unable to stand or tolerate much po intake. Pt states he knows is he dying. He wants to be in the hospital and does not want to pass away at home. He states his family is not able to take care of him. Constitutional: requiring IVF, requiring O2 (In extremis moaning and groaning) Eyes: no complaints ENT: no complaints Respiratory: shortness of breath Cardiovascular: no complaints Gastrointestinal: decreased appetite, nausea, other (Generalized abdominal pain in all 4 quadrants, tender without rebound), pain Musculoskeletal: bone/joint pain, swelling Neurologic: no complaints Psychological: nl mood/affect, no complaints Past Medical History stage IV pancreatic cancer Past Surgical History h/o Whipple procedure Past Surgical Hx: no surgical history Family History Significant Family History: no pertinent family hx Social History Smoking Status: Current every day smoker Exam/Review of Systems Vital Signs Vitals Vital Signs Date Time Temp Pulse Resp B/P Pulse Ox O2 Delivery O2 Flow Rate FiO2 11/29/16 16:00 79 11/29/16 11:46 98.0 17 111/76 98 11/28/16 20:15 Room Air Intake and Output 11/28/16 11/28/16 11/29/16 15:00 23:00 07:00 Intake Total 3850 ml 600 ml Output Total 300 ml Balance 3850 ml 300 ml Exam Constitutional: other (cachetic, frail) Psych: anxiety, depression Head: normocephalic Eyes: nl conjunctiva ENMT: nl external ears & nose Neck: non-tender, supple Respiratory: clear to auscultation, normal air movement Cardiovascular: regular rate and rhythm Gastrointestinal: soft Musculoskeletal: nl extremities to inspection, nl gait and stance Extremities: normal pulses Results Result Diagram: 11/29/1615 11/29/16 0715 Results 24 hrs Laboratory Tests Test 11/28/16 18:49 11/28/16 20:43 11/29/16 02:45 11/29/16 07:14 Lactic Acid Level 1.2 1.2 Free Thyroxine 0.66 Urine Color YELLOW Urine Clarity CLEAR Urine pH 6.0 Urine Specific [place] 1.018 Urine Ketones NEGATIVE Urine Nitrite NEGATIVE Urine Bilirubin NEGATIVE Urine Urobilinogen NEGATIVE Urine Leukocyte Esterase NEGATIVE Urine Hemoglobin NEGATIVE Urine Glucose NEGATIVE Urine Total Protein NEGATIVE Lipase < 10 L Test 11/29/16 07:15 White Blood Count 8.0 Red Blood Count 3.43 L Hemoglobin 10.4 #L Hematocrit 33.0 L Mean Corpuscular Volume 96.2 Mean Corpuscular Hemoglobin 30.3 Mean Corpuscular Hemoglobin Concent 31.5 L Red Cell Distribution Width 15.1 H Platelet Count 101 #L Mean Platelet Volume 10.9 H Neutrophils % 90.6 H Lymphocytes % 2.5 L Monocytes % 6.3 Eosinophils % 0.0 Basophils % 0.0 Nucleated Red Blood Cells % 0.0 Neutrophils # 7.3 Lymphocytes # 0.2 L Monocytes # 0.5 Eosinophils # 0.0 Basophils # 0.0 Nucleated Red Blood Cells # 0.0 Sodium Level 150 H Potassium Level 3.9 # Chloride Level 112 H Carbon Dioxide Level 26 Anion Gap 16 Blood Urea Nitrogen 63 H Creatinine 0.83 Glucose Level 78 Hemoglobin A1c 4.9 Calcium Level 7.6 L Phosphorus Level 3.7 Magnesium Level 2.6 H Total Bilirubin 0.6 Direct Bilirubin 0.00 Indirect Bilirubin 0.6 Aspartate Amino Transf (AST/SGOT) 361 #H Alanine Aminotransferase (ALT/SGPT) 146 H Alkaline Phosphatase 555 H Total Protein 5.7 L Albumin 2.5 L Globulin 3.20 Albumin/Globulin Ratio 0.78 Triglycerides Level 25 Cholesterol Level 52 L LDL Cholesterol, Calculated 14 HDL Cholesterol 33 Cholesterol/HDL Ratio 1.5 Thyroid Stimulating Hormone (TSH) 1.040 Medications Medications Current Medications Ondansetron HCl (Zofran Inj) 4 mg Q6H PRN IV NAUSEA AND/OR VOMITING; Start 11/28 at 20:00 Acetaminophen (Tylenol Tab) 650 mg Q6H PRN PO PAIN LEVEL 1-3 OR FEVER; Start at 20:00 Docusate Sodium (Colace) 100 mg Q12H PRN PO CONSTIPATION; Start 11/28/16 at 20: 00 Magnesium Hydroxide (Milk Of Mag) 30 ml DAILY PRN PO CONSTIPATION; Start at 20:00 Sodium Biphosphate/ Sodium Phosphate (Fleet Enema) 133 ml DAILY PRN [place] CONSTIPATION; Start 11/28/16 at 20:00 Pantoprazole (Protonix Tab) 40 mg DAILY@06 PO Last administered on 11/29/16 05: 52; Admin Dose 40 MG; Start 11/29/16 at 06:00 Heparin Sodium (Porcine) (Heparin (5000 Units/0.5 ml)) 5,000 unit Q12 SC Last administered on 11/29/16 09:50; Admin Dose 5,000 UNIT; Start 11/28/16 at 21:00 Hydralazine HCl (Apresoline) 10 mg Q6H PRN IV SBP > 180; Start 11/28/16 at 20:00 Diphenoxylate HCl/ Atropine (Lomotil Liquid Cup) 5 ml Q6H PRN GTB DIARRHEA; Start 11/28/16 at 20:00 Loratadine (Claritin) 10 mg DAILY PO Last administered on 11/29/16 09:44; Admin Dose 10 MG; Start 11/29/16 at 09:00 Non-Formulary Medication 1 ea 1 ea Q4H PRN SL Pain Last administered on 00:12; Admin Dose 1 EA; Start 11/28/16 at 23:00 Potassium Chloride/Dextrose (D5W + KCl 20 Meq) 1,000 ml @ 100 mls/hr Q10H IV Last administered on 11/29/16 16:34; Admin Dose 100 MLS/HR; Start 11/29/16 at 10: 00 Hydromorphone HCl (Dilaudid QUICK MIXER OPERATOR) 0.5 MG/HR CONTINUOUS RATE ... Q4PCA IV ; Start 11/29/16 at 11:00 Hydromorphone HCl (Dilaudid) 1 mg Q2H PRN IV PAIN LEVEL 1-3 Last administered on 11/29/16 16:34; Admin Dose 1 MG; Start 11/29/16 at 11:00 Dexamethasone 6 mg 6 mg BID IV ; Start 11/29/16 at 21:00 Acetaminophen (Ofirmev 1000mg/ 100ml Iv) 100 ml @ 400 mls/hr Q6 IVPB Last administered on 11/29/16 17:44; Admin Dose 400 MLS/HR; Start 11/29/16 at 12:00 RAMESH BRIGGS M.D. Nov 29, 2016 18:16
[2016-11-29] MEDS: HYDROmorphONE 0.2 MG/ML PCA IV SCH (18:29)
--- NOTE | 2016-11-29 18:46 | RADRPT ---
PROCEDURE: Ultrasound guided paracentesis CLINICAL INDICATION: Ascites TECHNIQUE: Risks benefits and alternatives of the procedure were explained to the patient. Inform ed written consent was obtained. A time out was performed. Informed written consent was obtained p rior to beginning the procedure. Preliminary cloth shrinking machine operator helper ultrasound of the abdomen was performed. Fluid was identified in the lower quadrant. The overlying skin of the left lower quadrant was prepped and draped in the usual sterile fashion. 5 cc of lidocaine was injected locally for pain control. Unde r ultrasound guidance, a skinny 5-[place] Yueh catheter was introduced into the peritoneal cavity. Fl uid was obtained without difficulty. The fluid was sent the laboratory for further analysis. The p monica tolerated procedure well without complication. COMPARISON: None FINDINGS: Approximately 7600 cc of clear yellow fluid was obtained. A fluid specimen was collected for possib le laboratory evaluation. IMPRESSION: Successful ultrasound-guided paracentesis. RPTAT: QQ Physician Cash Date Time Electronically viewed and signed by Physician Cash on 11/29/2016 18:46 WILNER/
[2016-11-29] MEDS: DEXAMETHASONE 4 MG/ML 1 ML INJ IV SCH (21:30)
[2016-11-30] VITALS (11 sets, daily range): BP systolic 90–101; BP diastolic 57–72; PULSE 52–64; RESP 17–21
[2016-11-30] MEDS: D5W + KCL 20 MEQ 1,000 ML IV SCH ×2 (04:53→05:48)
[2016-11-30] MEDS: PANTOPRAZOLE (EC) 40 MG TAB PO SCH (05:47)
[2016-11-30] MEDS: ACETAMINOPHEN 1000MG/100ML IV 100 ML IVPB SCH ×3 (05:48→11:22)
[2016-11-30] MEDS: HYDROmorphONE 0.2 MG/ML PCA IV SCH ×2 (06:07→17:49)
[2016-11-30 06:56] LABS: CALCIUM 7.7 mg/dl (8.4-10.2); CREATININE 0.89 mg/dl (0.61-1.24); POTASSIUM 5.4 mmol/L (3.5-5.1)
[2016-11-30 08:01] LABS: MAGNESIUM 2.5 mg/dl (1.7-2.5); PHOSPHORUS 4.3 mg/dl (2.5-4.9)
[2016-11-30] MEDS: DEXAMETHASONE 4 MG/ML 1 ML INJ IV SCH ×2 (09:29→20:51)
[2016-11-30] MEDS: LORATADINE 10 MG TAB PO SCH (09:30)
[2016-11-30] MEDS: FUROSEMIDE 20 MG INJ IV SCH (09:30)
[2016-11-30] MEDS: HEPARIN 5,000 UNIT/0.5 ML VIAL SC SCH ×2 (09:32→21:01)
--- NOTE | 2016-11-30 10:59 | CONS ---
Date/Time of Note Date/Time of Note DATE: 11/30/16 TIME: 10:57 Assessment/Plan Assessment/Plan Chief Complaint/Hosp Course 56-year-old gentleman who appears to be extremely emaciated and extreme distress at this time complaining of abdominal discomfort. Has a history of pancreatic cancer status post Whipple's procedure last chemotherapy given approximately 3 months. Patient presents with pain out of control, extremely debilitated at rest. States that his pain is primarily located in his abdomen without radiations into his back pelvis or chest. Denies nausea vomiting chest pain shortness of breath dizziness type locally disorientation, current control with admissions pain medications are not controlling his pain at this time. It is unknown what pain medications he was taking as an outpatient he is in such extremis at this time is not appropriate to do a detailed history. His brother is at the bedside and I have access to his current medical records current pain control medications include morphine and [place], pain is extreme and out of control affects his physical function mood sleeping and overall function. Current pain control medications do not alleviate his pain nor offer any measure of alleviation for any significant period of time. This was a initial starting dose and a very reasonable starting dose of opioids. There is no potential aberrant drug-related behavior at this gentleman has a valid diagnosis of malignancy and pain out of control severe and unremitting. Problems: Additional Assessment/Plan He feels more comfortable today attempting to take p.o. this morning. Denies systemic symptoms associated with opioids no nausea vomiting dizziness diplopia disorientation. Pain was rated 10/10 yesterday today 3/10. Has spoken to Dr. Sneed this morning will speak to family members concerning hospice care at a snf facility. My understanding is that they are unable to take care of him at home. Consultation Date/Type/Reason Admit Date/Time Nov 28, 2016 at 18:48 Initial Consult Date 11/29/16 Type of Consultation: oncology Referring Provider: KATLYN RODRIGES Exam/Review of Systems Vital Signs Vitals Vital Signs Date Time Temp Pulse Resp B/P Pulse Ox O2 Delivery O2 Flow Rate FiO2 11/30/16 08:20 62 11/30/16 07:18 98.2 18 90/66 97 11/28/16 20:15 Room Air Intake and Output 11/29/16 11/29/16 11/30/16 15:00 23:00 07:00 Intake Total 100 ml 400 ml 1400 ml Output Total 600 ml 300 ml Balance 100 ml -200 ml 1100 ml Exam Constitutional: alert, oriented Neurological: PLANNING FEEDER II-XII intact, nl mental status, nl speech, nl strength Results Result Diagram: 11/29/16 0715 11/30/16 0545 Results 24 hrs Laboratory Tests Test 11/30/16 05:45 Sodium Level 144 Potassium Level 5.4 H Chloride Level 107 Carbon Dioxide Level 25 Anion Gap 17 H Blood Urea Nitrogen 64 H Creatinine 0.89 Glucose Level 142 # Calcium Level 7.7 L Phosphorus Level 4.3 Magnesium Level 2.5 Medications Medications Current Medications Ondansetron HCl (Zofran Inj) 4 mg Q6H PRN IV NAUSEA AND/OR VOMITING Last administered on 11/30/16 09:29; Admin Dose 4 MG; Start 11/28/16 at 20:00 Acetaminophen (Tylenol Tab) 650 mg Q6H PRN PO PAIN LEVEL 1-3 OR FEVER; Start at 20:00 Docusate Sodium (Colace) 100 mg Q12H PRN PO CONSTIPATION; Start 11/28/16 at 20: 00 Magnesium Hydroxide (Milk Of Mag) 30 ml DAILY PRN PO CONSTIPATION; Start at 20:00 Sodium Biphosphate/ Sodium Phosphate (Fleet Enema) 133 ml DAILY PRN [place] CONSTIPATION; Start 11/28/16 at 20:00 Pantoprazole (Protonix Tab) 40 mg DAILY@06 PO Last administered on 11/30/16 05: 47; Admin Dose 40 MG; Start 11/29/16 at 06:00 Heparin Sodium (Porcine) (Heparin (5000 Units/0.5 ml)) 5,000 unit Q12 SC Last administered on 11/30/16 09:32; Admin Dose 5,000 UNIT; Start 11/28/16 at 21:00 Hydralazine HCl (Apresoline) 10 mg Q6H PRN IV SBP > 180; Start 11/28/16 at 20:00 Diphenoxylate HCl/ Atropine (Lomotil Liquid Cup) 5 ml Q6H PRN GTB DIARRHEA; Start 11/28/16 at 20:00 Loratadine (Claritin) 10 mg DAILY PO Last administered on 11/30/16 09:30; Admin Dose 10 MG; Start 11/29/16 at 09:00 Non-Formulary Medication 1 ea 1 ea Q4H PRN SL Pain Last administered on 00:12; Admin Dose 1 EA; Start 11/28/16 at 23:00 Potassium Chloride/Dextrose (D5W + KCl 20 Meq) 1,000 ml @ 100 mls/hr Q10H IV Last administered on 11/30/16 04:53; Admin Dose 100 MLS/HR; Start 11/29/16 at 10: 00 Hydromorphone HCl (Dilaudid BAG ADJUSTER) 0.5 MG/HR CONTINUOUS RATE ... Q4PCA IV Last administered on 11/30/16 06:07; Admin Dose 6 MG; Start 11/29/16 at 11:00 Hydromorphone HCl (Dilaudid) 1 mg Q2H PRN IV PAIN LEVEL 1-3 Last administered on 11/29/16 16:34; Admin Dose 1 MG; Start 11/29/16 at 11:00 Dexamethasone 6 mg 6 mg BID IV Last administered on 11/30/16 09:29; Admin Dose 6 MG; Start 11/29/16 at 21:00 Acetaminophen (Ofirmev 1000mg/ 100ml Iv) 100 ml @ 400 mls/hr Q6 IVPB Last administered on 11/29/16 17:44; Admin Dose 400 MLS/HR; Start 11/29/16 at 12:00 Furosemide (Lasix) 20 mg DAILY IV Last administered on 11/30/16 09:30; Admin Dose 20 MG; Start 11/30/16 at 09:00 KEYONNA JAFFE Nov 30, 2016 10:59
--- NOTE | 2016-11-30 11:04 | CONS ---
Date/Time of Note Date/Time of Note DATE: 11/30/16 TIME: 11:01 Assessment/Plan Assessment/Plan Chief Complaint/Hosp Course 56-year-old gentleman who appears to be extremely emaciated and extreme distress at this time complaining of abdominal discomfort. Has a history of pancreatic cancer status post Whipple's procedure last chemotherapy given approximately 3 months. Patient presents with pain out of control, extremely debilitated at rest. States that his pain is primarily located in his abdomen without radiations into his back pelvis or chest. Denies nausea vomiting chest pain shortness of breath dizziness type locally disorientation, current control with admissions pain medications are not controlling his pain at this time. It is unknown what pain medications he was taking as an outpatient he is in such extremis at this time is not appropriate to do a detailed history. His brother is at the bedside and I have access to his current medical records current pain control medications include morphine and [place], pain is extreme and out of control affects his physical function mood sleeping and overall function. Current pain control medications do not alleviate his pain nor offer any measure of alleviation for any significant period of time. This was a initial starting dose and a very reasonable starting dose of opioids. There is no potential aberrant drug-related behavior at this gentleman has a valid diagnosis of malignancy and pain out of control severe and unremitting. Problems: Additional Assessment/Plan This is a an addendum to my prior note patient is a full code this needs to be addressed with family members I have asked social work service to schedule a family conference. Consultation Date/Type/Reason Admit Date/Time Nov 28, 2016 at 18:48 Initial Consult Date 11/29/16 Type of Consultation: Palliative care Referring Provider: KATLYN RODRIGES Exam/Review of Systems Vital Signs Vitals Vital Signs Date Time Temp Pulse Resp B/P Pulse Ox O2 Delivery O2 Flow Rate FiO2 11/30/16 08:20 62 11/30/16 07:18 98.2 18 90/66 97 11/28/16 20:15 Room Air Intake and Output 11/29/16 11/29/16 11/30/16 15:00 23:00 07:00 Intake Total 100 ml 400 ml 1400 ml Output Total 600 ml 300 ml Balance 100 ml -200 ml 1100 ml Results Result Diagram: 11/29/16 0715 11/30/16 0545 Results 24 hrs Laboratory Tests Test 11/30/16 05:45 Sodium Level 144 Potassium Level 5.4 H Chloride Level 107 Carbon Dioxide Level 25 Anion Gap 17 H Blood Urea Nitrogen 64 H Creatinine 0.89 Glucose Level 142 # Calcium Level 7.7 L Phosphorus Level 4.3 Magnesium Level 2.5 Medications Medications Current Medications Ondansetron HCl (Zofran Inj) 4 mg Q6H PRN IV NAUSEA AND/OR VOMITING Last administered on 11/30/16 09:29; Admin Dose 4 MG; Start 11/28/16 at 20:00 Acetaminophen (Tylenol Tab) 650 mg Q6H PRN PO PAIN LEVEL 1-3 OR FEVER; Start at 20:00 Docusate Sodium (Colace) 100 mg Q12H PRN PO CONSTIPATION; Start 11/28/16 at 20: 00 Magnesium Hydroxide (Milk Of Mag) 30 ml DAILY PRN PO CONSTIPATION; Start at 20:00 Sodium Biphosphate/ Sodium Phosphate (Fleet Enema) 133 ml DAILY PRN [place] CONSTIPATION; Start 11/28/16 at 20:00 Pantoprazole (Protonix Tab) 40 mg DAILY@06 PO Last administered on 11/30/16 05: 47; Admin Dose 40 MG; Start 11/29/16 at 06:00 Heparin Sodium (Porcine) (Heparin (5000 Units/0.5 ml)) 5,000 unit Q12 SC Last administered on 11/30/16 09:32; Admin Dose 5,000 UNIT; Start 11/28/16 at 21:00 Hydralazine HCl (Apresoline) 10 mg Q6H PRN IV SBP > 180; Start 11/28/16 at 20:00 Diphenoxylate HCl/ Atropine (Lomotil Liquid Cup) 5 ml Q6H PRN GTB DIARRHEA; Start 11/28/16 at 20:00 Loratadine (Claritin) 10 mg DAILY PO Last administered on 11/30/16 09:30; Admin Dose 10 MG; Start 11/29/16 at 09:00 Non-Formulary Medication 1 ea 1 ea Q4H PRN SL Pain Last administered on 00:12; Admin Dose 1 EA; Start 11/28/16 at 23:00 Potassium Chloride/Dextrose (D5W + KCl 20 Meq) 1,000 ml @ 100 mls/hr Q10H IV Last administered on 11/30/16 04:53; Admin Dose 100 MLS/HR; Start 11/29/16 at 10: 00 Hydromorphone HCl (Dilaudid GRADER TENDER) 0.5 MG/HR CONTINUOUS RATE ... Q4PCA IV Last administered on 11/30/16 06:07; Admin Dose 6 MG; Start 11/29/16 at 11:00 Hydromorphone HCl (Dilaudid) 1 mg Q2H PRN IV PAIN LEVEL 1-3 Last administered on 11/29/16 16:34; Admin Dose 1 MG; Start 11/29/16 at 11:00 Dexamethasone 6 mg 6 mg BID IV Last administered on 11/30/16 09:29; Admin Dose 6 MG; Start 11/29/16 at 21:00 Acetaminophen (Ofirmev 1000mg/ 100ml Iv) 100 ml @ 400 mls/hr Q6 IVPB Last administered on 11/29/16 17:44; Admin Dose 400 MLS/HR; Start 11/29/16 at 12:00 Furosemide (Lasix) 20 mg DAILY IV Last administered on 11/30/16 09:30; Admin Dose 20 MG; Start 11/30/16 at 09:00 KEYONNA JAFFE Nov 30, 2016 11:04
[2016-11-30] MEDS ORDERED: NA POLYST SULFON 15 GM/60 ML BTL PO ONE (12:00)
[2016-11-30] MEDS: DEXTROSE 5%-0.45% NACL 1,000 ML IV SCH (12:18)
--- NOTE | 2016-11-30 16:14 | PN ---
Date/Time of Note Date/Time of Note DATE: 11/30/16 TIME: 16:12 Assessment/Plan VTE Prophylaxis VTE Prophylaxis Intervention: SCD's Lines/Catheters IV Catheter Type (from Nrs): [place] Urinary Cath still in place: Yes Reason Cath still needed: urinary retention, terminal illness/intractable pain Assessment/Plan Assessment/Plan 1. Metastatic pancreatic cancer, with a history of Whipple procedure in the past -Per patient and family, he no longer is receiving chemo, last chemo being 3 months ago. s/p Consult by [place] Dr.Sheila Kennedy -Patient is extremely cachectic. He reported poor p.o. intake -He will have physical therapy while in-house prior to discharge. -He has a severe ascites. Ultrasound guided paracentesis has been ordered for him. He has had 2 paracentesis in the past, last one being 2 weeks ago - S/p evaluation by , will set up family meeting for Family conference to decide code status and goals of care 2. Generalized weakness: Secondary to above -See #1 for plan of care 3. Hyperkalemia - correct as needed 4. Abnormal LFTs: Consequence of the known metastatic cancer Subjective 24 Hr Interval Summary Free Text/Dictation pt cachectiv, BP has been running low, afebrile Exam/Review of Systems Vital Signs Vitals Vital Signs Date Time Temp Pulse Resp B/P Pulse Ox O2 Delivery O2 Flow Rate FiO2 11/30/16 12:12 56 11/30/16 11:41 96.8 17 100/72 100 11/28/16 20:15 Room Air Intake and Output 11/29/16 11/29/16 11/30/16 15:00 23:00 07:00 Intake Total 100 ml 400 ml 1400 ml Output Total 600 ml 300 ml Balance 100 ml -200 ml 1100 ml Exam Constitutional: other (cachetic, frail) Psych: anxiety, depression Head: normocephalic Eyes: nl conjunctiva ENMT: nl external ears & nose Neck: non-tender, supple Respiratory: clear to auscultation, normal air movement Cardiovascular: regular rate and rhythm Gastrointestinal: soft Musculoskeletal: nl extremities to inspection, nl gait and stance Extremities: normal pulses Results Result Diagram: 11/29/16 0715 11/30/16 0545 Results 24 hrs Laboratory Tests Test 11/30/16 05:45 Sodium Level 144 Potassium Level 5.4 H Chloride Level 107 Carbon Dioxide Level 25 Anion Gap 17 H Blood Urea Nitrogen 64 H Creatinine 0.89 Glucose Level 142 # Calcium Level 7.7 L Phosphorus Level 4.3 Magnesium Level 2.5 Medications Medications Current Medications Ondansetron HCl (Zofran Inj) 4 mg Q6H PRN IV NAUSEA AND/OR VOMITING Last administered on 11/30/16 09:29; Admin Dose 4 MG; Start 11/28/16 at 20:00 Acetaminophen (Tylenol Tab) 650 mg Q6H PRN PO PAIN LEVEL 1-3 OR FEVER; Start at 20:00 Docusate Sodium (Colace) 100 mg Q12H PRN PO CONSTIPATION; Start 11/28/16 at 20: 00 Magnesium Hydroxide (Milk Of Mag) 30 ml DAILY PRN PO CONSTIPATION; Start at 20:00 Sodium Biphosphate/ Sodium Phosphate (Fleet Enema) 133 ml DAILY PRN [place] CONSTIPATION; Start 11/28/16 at 20:00 Pantoprazole (Protonix Tab) 40 mg DAILY@06 PO Last administered on 11/30/16 05: 47; Admin Dose 40 MG; Start 11/29/16 at 06:00 Heparin Sodium (Porcine) (Heparin (5000 Units/0.5 ml)) 5,000 unit Q12 SC Last administered on 11/30/16 09:32; Admin Dose 5,000 UNIT; Start 11/28/16 at 21:00 Hydralazine HCl (Apresoline) 10 mg Q6H PRN IV SBP > 180; Start 11/28/16 at 20:00 Diphenoxylate HCl/ Atropine (Lomotil Liquid Cup) 5 ml Q6H PRN GTB DIARRHEA; Start 11/28/16 at 20:00 Loratadine (Claritin) 10 mg DAILY PO Last administered on 11/30/16 09:30; Admin Dose 10 MG; Start 11/29/16 at 09:00 Non-Formulary Medication 1 ea Q4H PRN SL Pain Last administered on 11/29/16 00: 12; Admin Dose 1 EA; Start 11/28/16 at 23:00 Hydromorphone HCl (Dilaudid MARKER MACHINE ATTENDANT) 0.5 MG/HR CONTINUOUS RATE ... Q4PCA IV Last administered on 11/30/16 06:07; Admin Dose 6 MG; Start 11/29/16 at 11:00 Hydromorphone HCl (Dilaudid) 1 mg Q2H PRN IV PAIN LEVEL 1-3 Last administered on 11/29/16 16:34; Admin Dose 1 MG; Start 11/29/16 at 11:00 Dexamethasone (Decadron) 6 mg BID IV Last administered on 11/30/16 09:29; Admin Dose 6 MG; Start 11/29/16 at 21:00 Furosemide 20 mg 20 mg DAILY IV Last administered on 11/30/16 09:30; Admin Dose 20 MG; Start 11/30/16 at 09:00 Dextrose/Sodium Chloride (D5-1/2ns) 1,000 ml @ 75 mls/hr [id number] IV Last administered on 11/30/16 12:18; Admin Dose 75 MLS/HR; Start 11/30/16 at 12:00 JAMES HOFFMAN MD Nov 30, 2016 16:14
[2016-12-01] VITALS (12 sets, daily range): BP systolic 95–110; BP diastolic 65–77; PULSE 50–54; RESP 18–20
[2016-12-01] MEDS: DEXTROSE 5%-0.45% NACL 1,000 ML IV SCH ×2 (00:42→12:25)
[2016-12-01] MEDS: PANTOPRAZOLE (EC) 40 MG TAB PO SCH (05:34)
[2016-12-01] MEDS: HYDROmorphONE 0.2 MG/ML PCA IV SCH ×2 (05:42→18:11)
[2016-12-01] MEDS: DEXAMETHASONE 4 MG/ML 1 ML INJ IV SCH ×2 (09:42→20:50)
[2016-12-01] MEDS: LORATADINE 10 MG TAB PO SCH (09:42)
[2016-12-01] MEDS: HEPARIN 5,000 UNIT/0.5 ML VIAL SC SCH ×2 (09:43→21:02)
[2016-12-01] MEDS: FUROSEMIDE 20 MG INJ IV SCH (09:44)
[2016-12-01 10:15] LABS: CALCIUM 7.9 mg/dl (8.4-10.2); CREATININE 0.77 mg/dl (0.61-1.24); POTASSIUM 4.7 mmol/L (3.5-5.1)
--- NOTE | 2016-12-01 10:16 | CONS ---
Date/Time of Note Date/Time of Note DATE: 12/01/16 TIME: 10:09 Assessment/Plan Assessment/Plan Chief Complaint/Hosp Course 56 yo male with end stage pancreatic cancer. At this point patient is certainly not a candidate for any chemotherapy or other cancer therapies. I have spoke to him and his and they understand that patient is terminally ill and will likely pass away in the near future. He and his state he wants to be in a hospital setting for his remaining days and does not want home hospice at this time. -appreciate palliative care involvement -cont Dilaudid TECHNOLOGY OFFICER per pain management recs -per family pt does not want hospice but they want to enrol him in acute rehab Approximately 40 min was spent at the patient's bedside, in speaking to his family, and in coordination of his care Problems: (1) Metastasis from pancreatic cancer Status: Chronic (2) Generalized weakness Status: Chronic (3) Cachexia Status: Chronic Problems: Consultation Date/Type/Reason Admit Date/Time Nov 28, 2016 at 18:48 Initial Consult Date 11/29/16 Type of Consultation: Oncology Reason for Consultation metastatic pancreatic cancer Referring Provider: KATLYN RODRIGES 24 HR Interval Summary Free Text/Dictation pt is very weak. barely able to walk. daughter wants him to start physical therapy. Family does not want patient to come home and they do not want to enrol him in hospice at this time Exam/Review of Systems Vital Signs Vitals Vital Signs Date Time Temp Pulse Resp B/P Pulse Ox O2 Delivery O2 Flow Rate FiO2 12/01/16 08:15 51 12/01/16 08:00 17 12/01/16 07:33 98.8 105/70 97 11/28/16 20:15 Room Air Intake and Output 11/30/16 11/30/16 12/01/16 15:00 23:00 07:00 Intake Total 1350 ml Output Total 600 ml Balance 750 ml Exam Constitutional: alert, frail, oriented Psych: anxiety, depression Head: normocephalic Eyes: nl conjunctiva ENMT: nl external ears & nose Neck: non-tender, supple Respiratory: clear to auscultation, normal air movement Cardiovascular: regular rate and rhythm Gastrointestinal: soft Musculoskeletal: muscle tone (decreased), muscle weakness (decreased), nl extremities to inspection Results Result Diagram: 11/29/16 0715 11/30/16 0500 Medications Medications Current Medications Ondansetron HCl (Zofran Inj) 4 mg Q6H PRN IV NAUSEA AND/OR VOMITING Last administered on 11/30/16 09:29; Admin Dose 4 MG; Start 11/28/16 at 20:00 Acetaminophen (Tylenol Tab) 650 mg Q6H PRN PO PAIN LEVEL 1-3 OR FEVER; Start at 20:00 Docusate Sodium (Colace) 100 mg Q12H PRN PO CONSTIPATION; Start 11/28/16 at 20: 00 Magnesium Hydroxide (Milk Of Mag) 30 ml DAILY PRN PO CONSTIPATION; Start at 20:00 Sodium Biphosphate/ Sodium Phosphate (Fleet Enema) 133 ml DAILY PRN [place] CONSTIPATION; Start 11/28/16 at 20:00 Pantoprazole (Protonix Tab) 40 mg DAILY@06 PO Last administered on 12/01/16 05: 34; Admin Dose 40 MG; Start 11/29/16 at 06:00 Heparin Sodium (Porcine) (Heparin (5000 Units/0.5 ml)) 5,000 unit Q12 SC Last administered on 12/01/16 09:43; Admin Dose 5,000 UNIT; Start 11/28/16 at 21:00 Hydralazine HCl (Apresoline) 10 mg Q6H PRN IV SBP > 180; Start 11/28/16 at 20:00 Diphenoxylate HCl/ Atropine (Lomotil Liquid Cup) 5 ml Q6H PRN GTB DIARRHEA; Start 11/28/16 at 20:00 Loratadine (Claritin) 10 mg DAILY PO Last administered on 12/01/16 09:42; Admin Dose 10 MG; Start 11/29/16 at 09:00 Non-Formulary Medication 1 ea Q4H PRN SL Pain Last administered on 11/29/16 00: 12; Admin Dose 1 EA; Start 11/28/16 at 23:00 Hydromorphone HCl (Dilaudid TECHNOLOGY OFFICER) 0.5 MG/HR CONTINUOUS RATE ... Q4PCA IV Last administered on 12/01/16 05:42; Admin Dose 6 MG; Start 11/29/16 at 11:00 Hydromorphone HCl (Dilaudid) 1 mg Q2H PRN IV PAIN LEVEL 1-3 Last administered on 11/29/16 16:34; Admin Dose 1 MG; Start 11/29/16 at 11:00 Dexamethasone (Decadron) 6 mg BID IV Last administered on 12/01/16 09:42; Admin Dose 6 MG; Start 11/29/16 at 21:00 Furosemide 20 mg 20 mg DAILY IV Last administered on 12/01/16 09:44; Admin Dose 20 MG; Start 11/30/16 at 09:00 Dextrose/Sodium Chloride (D5-1/2ns) 1,000 ml @ 75 mls/hr [id number] IV Last administered on 12/01/16 00:42; Admin Dose 75 MLS/HR; Start 11/30/16 at 12:00 RAMESH BRIGGS M.D. Dec 01, 2016 10:16
--- NOTE | 2016-12-01 11:58 | PN ---
Date/Time of Note Date/Time of Note DATE: 12/01/16 TIME: 11:56 Assessment/Plan VTE Prophylaxis VTE Prophylaxis Intervention: SCD's Lines/Catheters IV Catheter Type (from Nrs): Peripheral IV Urinary Cath still in place: Yes Reason Cath still needed: urinary retention, terminal illness/intractable pain Assessment/Plan Assessment/Plan 1. Metastatic pancreatic cancer, with a history of Whipple procedure in the past -Per patient and family, he no longer is receiving chemo, last chemo being 3 months ago. s/p Consult by [place] Dr.Sheila Kennedy -Patient is extremely cachectic. He reported poor p.o. intake -He will have physical therapy while in-house prior to discharge. -He has a severe ascites. Ultrasound guided paracentesis has been ordered for him. He has had 2 paracentesis in the past, last one being 2 weeks ago - S/p evaluation by , family meeting did nto happen today, will reschedule it 2. Generalized weakness: Secondary to above -See #1 for plan of care 3. Hyperkalemia - correct as needed 4. Abnormal LFTs: Consequence of the known metastatic cancer Subjective 24 Hr Interval Summary Free Text/Dictation family meeting did not happen, BP stable, afebrile Exam/Review of Systems Vital Signs Vitals Vital Signs Date Time Temp Pulse Resp B/P Pulse Ox O2 Delivery O2 Flow Rate FiO2 12/01/16 11:33 97.4 73 18 103/77 98 11/28/16 20:15 Room Air Intake and Output 11/30/16 11/30/16 12/01/16 15:00 23:00 07:00 Intake Total 1350 ml Output Total 600 ml Balance 750 ml Exam Constitutional: other (cachetic, frail) Psych: anxiety, depression Head: normocephalic Eyes: nl conjunctiva ENMT: nl external ears & nose Neck: non-tender, supple Respiratory: clear to auscultation, normal air movement Cardiovascular: regular rate and rhythm Gastrointestinal: soft Musculoskeletal: nl extremities to inspection, nl gait and stance Extremities: normal pulses Results Result Diagram: 11/29/16 0715 12/01/16 0850 Results 24 hrs Laboratory Tests Test 12/01/16 08:50 Sodium Level 140 Potassium Level 4.7 Chloride Level 99 Carbon Dioxide Level 29 Anion Gap 17 H Blood Urea Nitrogen 54 H Creatinine 0.77 Glucose Level 114 Calcium Level 7.9 L Medications Medications Current Medications Ondansetron HCl (Zofran Inj) 4 mg Q6H PRN IV NAUSEA AND/OR VOMITING Last administered on 11/30/16 09:29; Admin Dose 4 MG; Start 11/28/16 at 20:00 Acetaminophen (Tylenol Tab) 650 mg Q6H PRN PO PAIN LEVEL 1-3 OR FEVER; Start at 20:00 Docusate Sodium (Colace) 100 mg Q12H PRN PO CONSTIPATION; Start 11/28/16 at 20: 00 Magnesium Hydroxide (Milk Of Mag) 30 ml DAILY PRN PO CONSTIPATION; Start at 20:00 Sodium Biphosphate/ Sodium Phosphate (Fleet Enema) 133 ml DAILY PRN [place] CONSTIPATION; Start 11/28/16 at 20:00 Pantoprazole (Protonix Tab) 40 mg DAILY@06 PO Last administered on 12/01/16 05: 34; Admin Dose 40 MG; Start 11/29/16 at 06:00 Heparin Sodium (Porcine) (Heparin (5000 Units/0.5 ml)) 5,000 unit Q12 SC Last administered on 12/01/16 09:43; Admin Dose 5,000 UNIT; Start 11/28/16 at 21:00 Hydralazine HCl (Apresoline) 10 mg Q6H PRN IV SBP > 180; Start 11/28/16 at 20:00 Diphenoxylate HCl/ Atropine (Lomotil Liquid Cup) 5 ml Q6H PRN GTB DIARRHEA; Start 11/28/16 at 20:00 Loratadine (Claritin) 10 mg DAILY PO Last administered on 12/01/16 09:42; Admin Dose 10 MG; Start 11/29/16 at 09:00 Non-Formulary Medication 1 ea Q4H PRN SL Pain Last administered on 11/29/16 00: 12; Admin Dose 1 EA; Start 11/28/16 at 23:00 Hydromorphone HCl (Dilaudid SUPERVISOR DRYING AND WINDING) 0.5 MG/HR CONTINUOUS RATE ... Q4PCA IV Last administered on 12/01/16 05:42; Admin Dose 6 MG; Start 11/29/16 at 11:00 Hydromorphone HCl (Dilaudid) 1 mg Q2H PRN IV PAIN LEVEL 1-3 Last administered on 11/29/16 16:34; Admin Dose 1 MG; Start 11/29/16 at 11:00 Dexamethasone (Decadron) 6 mg BID IV Last administered on 12/01/16 09:42; Admin Dose 6 MG; Start 11/29/16 at 21:00 Furosemide 20 mg 20 mg DAILY IV Last administered on 12/01/16 09:44; Admin Dose 20 MG; Start 11/30/16 at 09:00 Dextrose/Sodium Chloride (D5-1/2ns) 1,000 ml @ 75 mls/hr [id number] IV Last administered on 12/01/16 00:42; Admin Dose 75 MLS/HR; Start 11/30/16 at 12:00 JAMES HOFFMAN MD Dec 01, 2016 11:58
[2016-12-02] VITALS (7 sets, daily range): BP systolic 101–111; BP diastolic 58–79; PULSE 80–86; RESP 18
[2016-12-02] MEDS: DEXTROSE 5%-0.45% NACL 1,000 ML IV SCH ×3 (01:45→16:47)
[2016-12-02] MEDS: PANTOPRAZOLE (EC) 40 MG TAB PO SCH (05:48)
[2016-12-02] MEDS: HYDROmorphONE 0.2 MG/ML PCA IV SCH ×2 (06:22→18:21)
[2016-12-02] MEDS: LORATADINE 10 MG TAB PO SCH (09:04)
[2016-12-02] MEDS: DEXAMETHASONE 4 MG/ML 1 ML INJ IV SCH ×2 (09:06→21:19)
[2016-12-02] MEDS: FUROSEMIDE 20 MG INJ IV SCH (09:07)
[2016-12-02] MEDS: HEPARIN 5,000 UNIT/0.5 ML VIAL SC SCH ×2 (09:20→21:23)
--- NOTE | 2016-12-02 16:53 | PN ---
Date/Time of Note Date/Time of Note DATE: 12/02/16 TIME: 16:51 Assessment/Plan VTE Prophylaxis VTE Prophylaxis Intervention: SCD's Lines/Catheters IV Catheter Type (from Nrs): Portacath Urinary Cath still in place: Yes Reason Cath still needed: urinary retention Assessment/Plan Assessment/Plan 1. Metastatic pancreatic cancer, with a history of Whipple procedure in the past -Per patient and family, he no longer is receiving chemo, last chemo being 3 months ago. s/p Consult by [place] Dr.Sheila Kennedy -Patient is extremely cachectic. He reported poor p.o. intake -He will have physical therapy while in-house prior to discharge. -He has a severe ascites. Ultrasound guided paracentesis has been ordered for him. He has had 2 paracentesis in the past, last one being 2 weeks ago - S/p evaluation by , family meeting did nto happen today, will reschedule it 2. Generalized weakness: Secondary to above -See #1 for plan of care 3. Hyperkalemia resolved 4. Abnormal LFTs: Consequence of the known metastatic cancer awaiting family meeting to discuss goals of care Subjective 24 Hr Interval Summary Free Text/Dictation doing ok, BP labile, afebrile, no fever, no chills Exam/Review of Systems Vital Signs Vitals Vital Signs Date Time Temp Pulse Resp B/P Pulse Ox O2 Delivery O2 Flow Rate FiO2 12/02/16 13:25 97.9 67 18 101/60 93 11/28/16 20:15 Room Air Intake and Output 12/01/16 12/01/16 12/02/16 15:00 23:00 07:00 Intake Total 1250 ml 1225 ml Output Total 900 ml 300 ml Balance 350 ml 925 ml Exam Constitutional: other (cachetic, frail) Psych: anxiety, depression Head: normocephalic Eyes: nl conjunctiva ENMT: nl external ears & nose Neck: non-tender, supple Respiratory: clear to auscultation, normal air movement Cardiovascular: regular rate and rhythm Gastrointestinal: soft Musculoskeletal: nl extremities to inspection, nl gait and stance Extremities: normal pulses Results Result Diagram: 11/29/16 0715 12/01/16 0850 Medications Medications Current Medications Ondansetron HCl (Zofran Inj) 4 mg Q6H PRN IV NAUSEA AND/OR VOMITING Last administered on 11/30/16 09:29; Admin Dose 4 MG; Start 11/28/16 at 20:00 Acetaminophen (Tylenol Tab) 650 mg Q6H PRN PO PAIN LEVEL 1-3 OR FEVER; Start at 20:00 Docusate Sodium (Colace) 100 mg Q12H PRN PO CONSTIPATION; Start 11/28/16 at 20: 00 Magnesium Hydroxide (Milk Of Mag) 30 ml DAILY PRN PO CONSTIPATION; Start at 20:00 Sodium Biphosphate/ Sodium Phosphate (Fleet Enema) 133 ml DAILY PRN [place] CONSTIPATION; Start 11/28/16 at 20:00 Pantoprazole (Protonix Tab) 40 mg DAILY@06 PO Last administered on 12/02/16 05: 48; Admin Dose 40 MG; Start 11/29/16 at 06:00 Heparin Sodium (Porcine) (Heparin (5000 Units/0.5 ml)) 5,000 unit Q12 SC Last administered on 12/02/16 09:20; Admin Dose 5,000 UNIT; Start 11/28/16 at 21:00 Hydralazine HCl (Apresoline) 10 mg Q6H PRN IV SBP > 180; Start 11/28/16 at 20:00 Diphenoxylate HCl/ Atropine (Lomotil Liquid Cup) 5 ml Q6H PRN GTB DIARRHEA; Start 11/28/16 at 20:00 Loratadine (Claritin) 10 mg DAILY PO Last administered on 12/02/16 09:04; Admin Dose 10 MG; Start 11/29/16 at 09:00 Hydromorphone HCl (Dilaudid CARTRIDGE FILLER) 0.5 MG/HR CONTINUOUS RATE ... Q4PCA IV Last administered on 12/02/16 06:22; Admin Dose 6 MG; Start 11/29/16 at 11:00 Hydromorphone HCl (Dilaudid) 1 mg Q2H PRN IV PAIN LEVEL 1-3 Last administered on 11/29/16 16:34; Admin Dose 1 MG; Start 11/29/16 at 11:00 Dexamethasone (Decadron) 6 mg BID IV Last administered on 12/02/16 09:06; Admin Dose 6 MG; Start 11/29/16 at 21:00 Furosemide 20 mg 20 mg DAILY IV Last administered on 12/02/16 09:07; Admin Dose 20 MG; Start 11/30/16 at 09:00 Dextrose/Sodium Chloride (D5-1/2ns) 1,000 ml @ 75 mls/hr [id number] IV Last administered on 12/02/16 16:47; Admin Dose 75 MLS/HR; Start 11/30/16 at 12:00 JAMES HOFFMAN MD Dec 02, 2016 16:53
[2016-12-03] VITALS (9 sets, daily range): BP systolic 103–117; BP diastolic 59–83; PULSE 75–83; RESP 16–18
[2016-12-03] MEDS: PANTOPRAZOLE (EC) 40 MG TAB PO SCH (06:11)
[2016-12-03] MEDS: DEXTROSE 5%-0.45% NACL 1,000 ML IV SCH ×2 (06:12→20:00)
[2016-12-03] MEDS: HYDROmorphONE 0.2 MG/ML PCA IV SCH ×2 (06:13→19:44)
[2016-12-03 06:34] LABS: ABNORMAL IP MESSAGE 1; BASOPHILS % 0.1 % (0.0-2.0); HEMATOCRIT 41.3 % (42.0-52.0); HEMOGLOBIN 13.5 g/dl (14.0-18.0); LYMPHOCYTES # 0.1 10^3/ul (0.8-2.9); LYMPHOCYTES % 0.9 % (15.0-51.0); MEAN CORPUSCULAR HEMOGLOBIN 30.7 pg (29.0-33.0); MEAN CORPUSCULAR HGB CONC 32.7 g/dl (32.0-37.0); MEAN CORPUSCULAR VOLUME 93.9 fl (82.0-101.0); MEAN PLATELET VOLUME 12.1 fl (7.4-10.4); MONOCYTE # 0.3 10^3/ul (0.3-0.9); MONOCYTES % 1.7 % (0.0-11.0); NEUTROPHIL # 14.5 10^3/ul (1.6-7.5); PLATELET COUNT 82 10^3/UL (140-415); POSITIVE DIFF @See below; RED CELL DISTRIBUTION WIDTH 14.7 % (11.5-14.5)
[2016-12-03 06:45] LABS: INR 1.31; PROTIME 16.4 Sec (12.2-14.2); PT RATIO 1.3
[2016-12-03 06:46] LABS: PARTIAL THROMBOPLASTIN TIME 30.9 Sec (25.0-35.0)
[2016-12-03 06:47] LABS: NEUTROPHILS % 96.6 % (39.0-77.0)
[2016-12-03 07:00] LABS: CALCIUM 7.6 mg/dl (8.4-10.2); CREATININE 0.61 mg/dl (0.61-1.24); POTASSIUM 4.5 mmol/L (3.5-5.1)
[2016-12-03] MEDS: LORATADINE 10 MG TAB PO SCH (09:42)
[2016-12-03] MEDS: FUROSEMIDE 20 MG INJ IV SCH (09:42)
[2016-12-03] MEDS: DEXAMETHASONE 4 MG/ML 1 ML INJ IV SCH ×2 (09:43→21:35)
[2016-12-03] MEDS: HEPARIN 5,000 UNIT/0.5 ML VIAL SC SCH ×2 (09:55→21:40)
--- NOTE | 2016-12-03 12:07 | CONS ---
Date/Time of Note Date/Time of Note DATE: 12/03/16 TIME: 11:59 Assessment/Plan Assessment/Plan Additional Assessment/Plan Family conference this morning with patient's daughter and , attendees myself and Nikolay from case management. History of present illness Covered with family members discussed patient's underlying malignancy and the fact that there is no treatment that can be given at this time. Family members understanding His daughter seems to understand the severity of the medical problem but does not. There are hopes and desires to bring him home to have some therapy to make sure he is pain-free Fears and concerns That family members were not be able to adequately take care of his hygienic needs and pain management needs at home. Communication preference Meet with caregivers and family conferences Goals of care been discussed family members are leaning towards admitting patient to residential unit and they are receptive to hospice consultation Estimated prognosis Less than a month this was shared with family members Pain management issues Have been addressed the patient is more comfortable now on Dilaudid continuous and push Psychosocial Have been addressed with family members Ethical issues Discharge patient to the most appropriate and safe facility. At home or residential unit. POLST form should be addressed prior to patient's discharge Family members would not address patient's CODE STATUS, hopefully hospice will do so prior to discharge. Consultation Date/Type/Reason Admit Date/Time Nov 28, 2016 at 18:48 Initial Consult Date 11/29/16 Type of Consultation: Palliative care Referring Provider: KATLYN RODRIGES Exam/Review of Systems Vital Signs Vitals Vital Signs Date Time Temp Pulse Resp B/P Pulse Ox O2 Delivery O2 Flow Rate FiO2 12/03/16 07:49 98.8 71 18 110/71 90 12/03/16 04:00 Room Air Intake and Output 12/02/16 12/02/16 12/03/16 15:00 23:00 07:00 Intake Total 895 ml 1200 ml Output Total 850 ml 350 ml Balance 45 ml 850 ml Results Result Diagram: 12/03/16 0547 12/03/16 0547 Results 24 hrs Laboratory Tests Test 12/03/16 05:47 White Blood Count 15.0 #H Red Blood Count 4.40 #L Hemoglobin 13.5 #L Hematocrit 41.3 #L Mean Corpuscular Volume 93.9 Mean Corpuscular Hemoglobin 30.7 Mean Corpuscular Hemoglobin Concent 32.7 Red Cell Distribution Width 14.7 H Platelet Count 82 L Mean Platelet Volume 12.1 H Neutrophils % 96.6 H Lymphocytes % 0.9 L Monocytes % 1.7 Eosinophils % 0.0 Basophils % 0.1 Nucleated Red Blood Cells % 0.0 Neutrophils # 14.5 H Lymphocytes # 0.1 L Monocytes # 0.3 Eosinophils # 0.0 Basophils # 0.0 Nucleated Red Blood Cells # 0.0 Prothrombin Time 16.4 H Prothrombin Time Ratio 1.3 INR International Normalized Ratio 1.31 Activated Partial Thromboplast Time 30.9 Sodium Level 138 Potassium Level 4.5 Chloride Level 100 Carbon Dioxide Level 30 Anion Gap 13 Blood Urea Nitrogen 41 #H Creatinine 0.61 Glucose Level 110 Calcium Level 7.6 L Magnesium Level 2.2 Medications Medications Current Medications Ondansetron HCl (Zofran Inj) 4 mg Q6H PRN IV NAUSEA AND/OR VOMITING Last administered on 11/30/16 09:29; Admin Dose 4 MG; Start 11/28/16 at 20:00 Acetaminophen (Tylenol Tab) 650 mg Q6H PRN PO PAIN LEVEL 1-3 OR FEVER; Start at 20:00 Docusate Sodium (Colace) 100 mg Q12H PRN PO CONSTIPATION; Start 11/28/16 at 20: 00 Magnesium Hydroxide (Milk Of Mag) 30 ml DAILY PRN PO CONSTIPATION; Start at 20:00 Sodium Biphosphate/ Sodium Phosphate (Fleet Enema) 133 ml DAILY PRN [place] CONSTIPATION; Start 11/28/16 at 20:00 Pantoprazole (Protonix Tab) 40 mg DAILY@06 PO Last administered on 12/03/16 06 :11; Admin Dose 40 MG; Start 11/29/16 at 06:00 Heparin Sodium (Porcine) (Heparin (5000 Units/0.5 ml)) 5,000 unit Q12 SC Last administered on 12/03/16 09:55; Admin Dose 5,000 UNIT; Start 11/28/16 at 21:00 Hydralazine HCl (Apresoline) 10 mg Q6H PRN IV SBP > 180; Start 11/28/16 at 20:00 Diphenoxylate HCl/ Atropine (Lomotil Liquid Cup) 5 ml Q6H PRN GTB DIARRHEA; Start 11/28/16 at 20:00 Loratadine (Claritin) 10 mg DAILY PO Last administered on 12/03/16 09:42; Admin Dose 10 MG; Start 11/29/16 at 09:00 Hydromorphone HCl (Dilaudid LEAD RECOVERER) 0.5 MG/HR CONTINUOUS RATE ... Q4PCA IV Last administered on 12/03/16 06:13; Admin Dose 6 MG; Start 11/29/16 at 11:00 Hydromorphone HCl (Dilaudid) 1 mg Q2H PRN IV PAIN LEVEL 1-3 Last administered on 11/29/16 16:34; Admin Dose 1 MG; Start 11/29/16 at 11:00 Dexamethasone (Decadron) 6 mg BID IV Last administered on 12/03/16 09:43; Admin Dose 6 MG; Start 11/29/16 at 21:00 Furosemide 20 mg 20 mg DAILY IV Last administered on 12/03/16 09:42; Admin Dose 20 MG; Start 11/30/16 at 09:00 Dextrose/Sodium Chloride (D5-1/2ns) 1,000 ml @ 75 mls/hr [id number] IV Last administered on 12/03/16 06:12; Admin Dose 75 MLS/HR; Start 11/30/16 at 12:00 KEYONNA JAFFE Dec 03, 2016 12:07
--- NOTE | 2016-12-03 17:53 | PN ---
Date/Time of Note Date/Time of Note DATE: 12/03/16 TIME: 17:50 Assessment/Plan VTE Prophylaxis VTE Prophylaxis Intervention: SCD's Lines/Catheters IV Catheter Type (from Nrsg): Portacath Urinary Cath still in place: Yes Reason Cath still needed: terminal illness/intractable pain Assessment/Plan Assessment/Plan 1. Metastatic pancreatic cancer, with a history of Whipple procedure in the past started on dilauidd EMERGENCY PREPAREDNESS COORDINATOR 2. Generalized weakness: Secondary to above -See #1 for plan of care 3. Hyperkalemia resolved 4. Abnormal LFTs: Consequence of the known metastatic cancer on dilaudid EMERGENCY PREPAREDNESS COORDINATOR Subjective 24 Hr Interval Summary Free Text/Dictation no acute events, s/p family meeting pt started on dilaudid EMERGENCY PREPAREDNESS COORDINATOR Exam/Review of Systems Vital Signs Vitals Vital Signs Date Time Temp Pulse Resp B/P Pulse Ox O2 Delivery O2 Flow Rate FiO2 12/03/16 17:40 18 12/03/16 16:00 98.0 67 112/69 94 12/03/16 10:00 Nasal Cannula Intake and Output 12/02/16 12/02/16 12/03/16 15:00 23:00 07:00 Intake Total 895 ml 1200 ml Output Total 850 ml 350 ml Balance 45 ml 850 ml Exam Constitutional: other (cachetic, frail) Psych: anxiety, depression Head: normocephalic Eyes: nl conjunctiva ENMT: nl external ears & nose Neck: non-tender, supple Respiratory: clear to auscultation, normal air movement Cardiovascular: regular rate and rhythm Gastrointestinal: soft Musculoskeletal: nl extremities to inspection, nl gait and stance Extremities: normal pulses Results Result Diagram: 12/03/16 0547 12/03/16 0547 Results 24 hrs Laboratory Tests Test 12/03/16 05:47 White Blood Count 15.0 #H Red Blood Count 4.40 #L Hemoglobin 13.5 #L Hematocrit 41.3 #L Mean Corpuscular Volume 93.9 Mean Corpuscular Hemoglobin 30.7 Mean Corpuscular Hemoglobin Concent 32.7 Red Cell Distribution Width 14.7 H Platelet Count 82 L Mean Platelet Volume 12.1 H Neutrophils % 96.6 H Lymphocytes % 0.9 L Monocytes % 1.7 Eosinophils % 0.0 Basophils % 0.1 Nucleated Red Blood Cells % 0.0 Neutrophils # 14.5 H Lymphocytes # 0.1 L Monocytes # 0.3 Eosinophils # 0.0 Basophils # 0.0 Nucleated Red Blood Cells # 0.0 Prothrombin Time 16.4 H Prothrombin Time Ratio 1.3 INR International Normalized Ratio 1.31 Activated Partial Thromboplast Time 30.9 Sodium Level 138 Potassium Level 4.5 Chloride Level 100 Carbon Dioxide Level 30 Anion Gap 13 Blood Urea Nitrogen 41 #H Creatinine 0.61 Glucose Level 110 Calcium Level 7.6 L Magnesium Level 2.2 Medications Medications Current Medications Ondansetron HCl (Zofran Inj) 4 mg Q6H PRN IV NAUSEA AND/OR VOMITING Last administered on 11/30/16 09:29; Admin Dose 4 MG; Start 11/28/16 at 20:00 Acetaminophen (Tylenol Tab) 650 mg Q6H PRN PO PAIN LEVEL 1-3 OR FEVER; Start at 20:00 Docusate Sodium (Colace) 100 mg Q12H PRN PO CONSTIPATION; Start 11/28/16 at 20: 00 Magnesium Hydroxide (Milk Of Mag) 30 ml DAILY PRN PO CONSTIPATION; Start at 20:00 Sodium Biphosphate/ Sodium Phosphate (Fleet Enema) 133 ml DAILY PRN [place] CONSTIPATION; Start 11/28/16 at 20:00 Pantoprazole (Protonix Tab) 40 mg DAILY@06 PO Last administered on 12/03/16 06 :11; Admin Dose 40 MG; Start 11/29/16 at 06:00 Heparin Sodium (Porcine) (Heparin (5000 Units/0.5 ml)) 5,000 unit Q12 SC Last administered on 12/03/16 09:55; Admin Dose 5,000 UNIT; Start 11/28/16 at 21:00 Hydralazine HCl (Apresoline) 10 mg Q6H PRN IV SBP > 180; Start 11/28/16 at 20:00 Diphenoxylate HCl/ Atropine (Lomotil Liquid Cup) 5 ml Q6H PRN GTB DIARRHEA; Start 11/28/16 at 20:00 Loratadine (Claritin) 10 mg DAILY PO Last administered on 12/03/16 09:42; Admin Dose 10 MG; Start 11/29/16 at 09:00 Hydromorphone HCl (Dilaudid) 1 mg Q2H PRN IV PAIN LEVEL 1-3 Last administered on 11/29/16 16:34; Admin Dose 1 MG; Start 11/29/16 at 11:00 Dexamethasone (Decadron) 6 mg BID IV Last administered on 12/03/16 09:43; Admin Dose 6 MG; Start 11/29/16 at 21:00 Furosemide 20 mg 20 mg DAILY IV Last administered on 12/03/16 09:42; Admin Dose 20 MG; Start 11/30/16 at 09:00 Dextrose/Sodium Chloride (D5-1/2ns) 1,000 ml @ 75 mls/hr [id number] IV Last administered on 12/03/16 06:12; Admin Dose 75 MLS/HR; Start 11/30/16 at 12:00 Hydromorphone HCl (Dilaudid EMERGENCY PREPAREDNESS COORDINATOR) 0.3 MG/HR CONTINUOUS RATE ... Q4PCA IV ; Start 12/03/16 at 18:00 JAMES HOFFMAN MD Dec 03, 2016 17:53
[2016-12-03] MEDS: D5W-0.45 NACL + KCL 20 MEQ 1,000 ML IV SCH (19:49)
[2016-12-04 01:57] VITALS: BP 116/77; RESP 18
[2016-12-04] MEDS: PANTOPRAZOLE (EC) 40 MG TAB PO SCH (06:07)
[2016-12-04 07:23] VITALS: BP 116/78; RESP 18
[2016-12-04] MEDS: DEXAMETHASONE 4 MG/ML 1 ML INJ IV SCH ×2 (09:00→21:20)
[2016-12-04] MEDS: FUROSEMIDE 20 MG INJ IV SCH (09:00)
[2016-12-04] MEDS: HEPARIN 5,000 UNIT/0.5 ML VIAL SC SCH ×2 (09:02→21:37)
[2016-12-04] MEDS: LORATADINE 10 MG TAB PO SCH (09:04)
[2016-12-04] MEDS: D5W-0.45 NACL + KCL 20 MEQ 1,000 ML IV SCH ×2 (09:18→22:59)
[2016-12-04 14:47] VITALS: BP 108/71; RESP 18
[2016-12-04] MEDS: HYDROmorphONE 0.2 MG/ML PCA IV SCH (16:12)
--- NOTE | 2016-12-04 16:13 | PN ---
Date/Time of Note Date/Time of Note DATE: 12/04/16 TIME: 16:09 Assessment/Plan VTE Prophylaxis VTE Prophylaxis Intervention: heparin, SCD's Lines/Catheters IV Catheter Type (from Nrsg): Central Line Central line still needed: Yes (Poor IV access, Nutrition and IVF ) Urinary Cath still in place: Yes Reason Cath still needed: terminal illness/intractable pain Assessment/Plan Assessment/Plan 1. Metastatic pancreatic cancer, with a history of Whipple procedure in the past started on dilauidd CHIEF MEDICAL PHYSICIST for pain control 2. Generalized weakness: Secondary to above -See #1 for plan of care 3. Hyperkalemia resolved 4. Abnormal LFTs: Consequence of the known metastatic cancer DVT prophylaxis: Heparin yeterday I had a discussion with patient daughter and explained to her about pt prognosis . she wants to keep him full code at this time and wants to have Nutrition, pt refused to have complete swallow- will place NG tube and start dietary recommendations to start Tube feeding, once tube feeding started then we will stop IV fluid, currently decrease rate of IVF to 50 cc/hr Dr. Carter also following patient Subjective 24 Hr Interval Summary Free Text/Dictation pt refused to have swallow evaluation, will plan for NG tube and tube feeding Exam/Review of Systems Vital Signs Vitals Vital Signs Date Time Temp Pulse Resp B/P Pulse Ox O2 Delivery O2 Flow Rate FiO2 12/04/16 14:47 98.1 71 18 108/71 90 12/03/16 18:00 Room Air Nasal Cannula Intake and Output 12/03/16 12/03/16 12/04/16 15:00 23:00 07:00 Intake Total 1100 ml 725 ml Output Total 550 ml 100 ml Balance 550 ml 625 ml Exam Constitutional: other (cachetic, frail) Psych: anxiety, depression Head: normocephalic Eyes: nl conjunctiva ENMT: nl external ears & nose Neck: non-tender, supple Respiratory: clear to auscultation, normal air movement Cardiovascular: regular rate and rhythm Gastrointestinal: soft Musculoskeletal: nl extremities to inspection, nl gait and stance Extremities: normal pulses Results Result Diagram: 12/03/16 0547 12/03/16 0547 Medications Medications Current Medications Ondansetron HCl (Zofran Inj) 4 mg Q6H PRN IV NAUSEA AND/OR VOMITING Last administered on 11/30/16 09:29; Admin Dose 4 MG; Start 11/28/16 at 20:00 Acetaminophen (Tylenol Tab) 650 mg Q6H PRN PO PAIN LEVEL 1-3 OR FEVER; Start at 20:00 Docusate Sodium (Colace) 100 mg Q12H PRN PO CONSTIPATION; Start 11/28/16 at 20: 00 Magnesium Hydroxide (Milk Of Mag) 30 ml DAILY PRN PO CONSTIPATION; Start at 20:00 Sodium Biphosphate/ Sodium Phosphate (Fleet Enema) 133 ml DAILY PRN [place] CONSTIPATION; Start 11/28/16 at 20:00 Pantoprazole (Protonix Tab) 40 mg DAILY@06 PO Last administered on 12/04/16 06 :07; Admin Dose 40 MG; Start 11/29/16 at 06:00 Heparin Sodium (Porcine) (Heparin (5000 Units/0.5 ml)) 5,000 unit Q12 SC Last administered on 12/04/16 09:02; Admin Dose 5,000 UNIT; Start 11/28/16 at 21:00 Hydralazine HCl (Apresoline) 10 mg Q6H PRN IV SBP > 180; Start 11/28/16 at 20:00 Diphenoxylate HCl/ Atropine (Lomotil Liquid Cup) 5 ml Q6H PRN GTB DIARRHEA; Start 11/28/16 at 20:00 Loratadine (Claritin) 10 mg DAILY PO Last administered on 12/04/16 09:04; Admin Dose 10 MG; Start 11/29/16 at 09:00 Hydromorphone HCl (Dilaudid) 1 mg Q2H PRN IV PAIN LEVEL 1-3 Last administered on 11/29/16 16:34; Admin Dose 1 MG; Start 11/29/16 at 11:00 Dexamethasone (Decadron) 6 mg BID IV Last administered on 12/04/16 09:00; Admin Dose 6 MG; Start 11/29/16 at 21:00 Furosemide (Lasix) 20 mg DAILY IV Last administered on 12/04/16 09:00; Admin Dose 20 MG; Start 11/30/16 at 09:00 Hydromorphone HCl 0.3 MG/HR CONTINUOUS RATE ... Q4PCA IV Last administered on 19:44; Admin Dose 6 MG; Start 12/03/16 at 18:00 Potassium Chloride/Dextrose/ Sod Cl (D5-1/2ns + KCl 20 Meq) 1,000 ml @ 75 mls/ hr [id number] IV Last administered on 12/04/16 09:18; Admin Dose 75 MLS/HR; Start 12/03/16 at 20:00 JAMES HOFFMAN MD Dec 04, 2016 16:13
[2016-12-04 19:44] VITALS: BP 112/69; RESP 19
[2016-12-04] MEDS: ALBUTEROL/IPRATROPIUM (NEB) 3 ML AMP HHN PRN (20:56)
[2016-12-05 03:19] VITALS: BP 108/68; RESP 16
[2016-12-05] MEDS: PANTOPRAZOLE (EC) 40 MG TAB PO SCH (06:00)
[2016-12-05 07:44] VITALS: BP 122/77; RESP 18
[2016-12-05] MEDS: DEXAMETHASONE 4 MG/ML 1 ML INJ IV SCH ×2 (08:54→21:22)
[2016-12-05] MEDS: FUROSEMIDE 20 MG INJ IV SCH (08:55)
[2016-12-05] MEDS: LORATADINE 10 MG TAB PO SCH (09:00)
[2016-12-05] MEDS: HEPARIN 5,000 UNIT/0.5 ML VIAL SC SCH ×2 (09:00→21:00)
[2016-12-05] MEDS: HYDROmorphONE 0.2 MG/ML PCA IV SCH ×2 (09:03→22:52)
--- NOTE | 2016-12-05 12:19 | PN ---
Date/Time of Note Date/Time of Note DATE: 12/05/16 TIME: 12:15 Assessment/Plan VTE Prophylaxis VTE Prophylaxis Intervention: heparin Lines/Catheters IV Catheter Type (from Nrsg): Peripheral IV Urinary Cath still in place: Yes Reason Cath still needed: urinary retention, terminal illness/intractable pain Assessment/Plan Assessment/Plan 1. Metastatic pancreatic cancer, with a history of Whipple procedure in the past started on dilauidd MICA LAYER for pain control 2. Generalized weakness: Secondary to above -See #1 for plan of care 3. Hyperkalemia resolved 4. Abnormal LFTs: Consequence of the known metastatic cancer DVT prophylaxis: Heparin yeterday I had a discussion with patient daughter and explained to her about pt prognosis . she wants to keep him full code at this time and wants to have Nutrition, pt refused to have complete swallow- will attempted to place NG tube two times but pt was resisting a lot, so we will hold off on NG tube placement, continue IV fluids will try to get a hold of Daughter to address a code status Dr. Carter also following patient Subjective 24 Hr Interval Summary Free Text/Dictation pt pain not controlled. dilaudid upto 0.4, pt resisted for NG tube placement Exam/Review of Systems Vital Signs Vitals Vital Signs Date Time Temp Pulse Resp B/P Pulse Ox O2 Delivery O2 Flow Rate FiO2 12/05/16 09:00 18 12/05/16 08:10 Nasal Cannula 3.0 12/05/16 07:44 97.3 62 122/77 91 12/04/16 20:58 89 Intake and Output 12/04/16 12/04/16 12/05/16 15:00 23:00 07:00 Intake Total 1000 ml 440 ml Output Total 1000 ml Balance 0 ml 440 ml Exam Constitutional: other (cachetic, frail) Psych: anxiety, depression Head: normocephalic Eyes: nl conjunctiva ENMT: nl external ears & nose Neck: non-tender, supple Respiratory: clear to auscultation, normal air movement Cardiovascular: regular rate and rhythm Gastrointestinal: soft Musculoskeletal: nl extremities to inspection, nl gait and stance Extremities: normal pulses Results Result Diagram: 12/03/16 0547 12/03/16 0551 Medications Medications Current Medications Ondansetron HCl (Zofran Inj) 4 mg Q6H PRN IV NAUSEA AND/OR VOMITING Last administered on 11/30/16 09:29; Admin Dose 4 MG; Start 11/28/16 at 20:00 Acetaminophen (Tylenol Tab) 650 mg Q6H PRN PO PAIN LEVEL 1-3 OR FEVER; Start at 20:00 Docusate Sodium (Colace) 100 mg Q12H PRN PO CONSTIPATION; Start 11/28/16 at 20: 00 Magnesium Hydroxide (Milk Of Mag) 30 ml DAILY PRN PO CONSTIPATION; Start at 20:00 Sodium Biphosphate/ Sodium Phosphate (Fleet Enema) 133 ml DAILY PRN [place] CONSTIPATION; Start 11/28/16 at 20:00 Pantoprazole (Protonix Tab) 40 mg DAILY@06 PO Last administered on 12/04/16 06 :07; Admin Dose 40 MG; Start 11/29/16 at 06:00 Heparin Sodium (Porcine) (Heparin (5000 Units/0.5 ml)) 5,000 unit Q12 SC Last administered on 12/04/16 21:37; Admin Dose 5,000 UNIT; Start 11/28/16 at 21:00 Hydralazine HCl (Apresoline) 10 mg Q6H PRN IV SBP > 180; Start 11/28/16 at 20:00 Diphenoxylate HCl/ Atropine (Lomotil Liquid Cup) 5 ml Q6H PRN GTB DIARRHEA; Start 11/28/16 at 20:00 Loratadine (Claritin) 10 mg DAILY PO Last administered on 12/04/16 09:04; Admin Dose 10 MG; Start 11/29/16 at 09:00 Hydromorphone HCl (Dilaudid) 1 mg Q2H PRN IV PAIN LEVEL 1-3 Last administered on 11/29/16 16:34; Admin Dose 1 MG; Start 11/29/16 at 11:00 Dexamethasone (Decadron) 6 mg BID IV Last administered on 12/05/16 08:54; Admin Dose 6 MG; Start 11/29/16 at 21:00 Furosemide (Lasix) 20 mg DAILY IV Last administered on 12/05/16 08:55; Admin Dose 20 MG; Start 11/30/16 at 09:00 Hydromorphone HCl 0.4 MG/HR CONTINUOUS RATE ... Q4PCA IV Last administered on 09:03; Admin Dose 6 MG; Start 12/03/16 at 18:00 Potassium Chloride/Dextrose/ Sod Cl (D5-1/2ns + KCl 20 Meq) 1,000 ml @ 75 mls/ hr [id number] IV Last administered on 12/04/16 22:59; Admin Dose 75 MLS/HR; Start 12/03/16 at 20:00 JAMES HOFFMAN MD Dec 05, 2016 12:19
[2016-12-05] MEDS: D5W-0.45 NACL + KCL 20 MEQ 1,000 ML IV SCH (13:16)
[2016-12-05 14:14] VITALS: BP 105/65; RESP 18
[2016-12-05 19:32] VITALS: BP 119/80; RESP 20
[2016-12-05] MEDS: ALBUTEROL/IPRATROPIUM (NEB) 3 ML AMP HHN PRN (22:00)
[2016-12-05 23:30] VITALS: BP 116/77; RESP 18
[2016-12-06] VITALS (51 sets, daily range): BP systolic 68–127; BP diastolic 40–111; PULSE 51–117; RESP 14–29; Ht 165.1 cm; Wt 50.5 kg
[2016-12-06] MEDS: D5W-0.45 NACL + KCL 20 MEQ 1,000 ML IV SCH ×3 (01:20→13:59)
[2016-12-06] MEDS: PANTOPRAZOLE (EC) 40 MG TAB PO SCH (06:00)
[2016-12-06 06:39] LABS: AADO2 Arterial 630.1 mmHg (7.0-24.0); Allen Test ACCEPTAB; Arterial Base Excess 1.5 mmol/L (-3.0-3); Arterial COHb 0.3 % (0.0-3.0); Arterial Fraction of Oxyhgb 86.8 % (93.0-99.0); Arterial HCO3 23.9 mmol/L (22.0-26.0); Arterial MetHb 0.1 % (0.0-1.5); Arterial Total Hemglobin 14.4 g/dl (12.0-18.0); MODE MASK - NRB
[2016-12-06] MEDS ORDERED: FUROSEMIDE 20 MG INJ IV ONE (07:00)
--- NOTE | 2016-12-06 07:05 | EN ---
Date/Time of Note Date/Time of Note DATE: 12/06/16 TIME: 06:58 Event Note Medicine Medicine Event Note Patient seen and examined at the bedside. Nurse notified me that the patient was desaturating to the 80s. Patient refused to be suctioned. He was put on a nonrebreather mask. Oxygenation did slightly improved to 89 and 90%. X-ray was ordered. Showed some possible signs of vascular congestion. Heart rate remained in the 80s-90s range though did a few times go to 102. Patient was at times seen in distress. ABG was ordered which showed a pH of 7.4 CO2 of 31 PO2 of 51 and a bicarb of 23. Patient was given 20 mg of IV Lasix. He also was put on a BiPAP to maintain oxygenation above 90. He was moved to telemetry. Nurse was going to notify the family. Primary team aware. BAIRON GRIGGS Dec 06, 2016 07:05
--- NOTE | 2016-12-06 07:29 | RADRPT ---
PROCEDURE: XR Chest. CLINICAL INDICATION: Shortness of breath. TECHNIQUE: AP Portable chest. COMPARISON: 11/28/2016. FINDINGS: There is a right internal jugular central venous Port-A-Cath with its distal tip in the right atrium , unchanged. The cardiomediastinal silhouette is within normal limits. Lung volumes remain diminis hed. No pleural effusion is noted. No pneumothorax is seen. Mild degenerative changes of the thor acic spine are evident. IMPRESSION: 1. Interval development of bilateral patchy interstitial and airspace disease concerning for infect ion. 2. Unchanged low lung volumes. 3. A right-sided Port-A-Cath, stable in position. RPTAT: HJAH .Rhina Browning MD, MD Date Time Electronically viewed and signed by .Rhina Browning MD, on 12/06/2016 07:28 .H/
[2016-12-06] MEDS: HEPARIN 5,000 UNIT/0.5 ML VIAL SC SCH ×2 (08:08→21:00)
[2016-12-06] MEDS: LORATADINE 10 MG TAB PO SCH (08:08)
[2016-12-06] MEDS: DEXAMETHASONE 4 MG/ML 1 ML INJ IV SCH ×2 (09:03→20:46)
[2016-12-06] MEDS: FUROSEMIDE 20 MG INJ IV SCH (09:03)
--- NOTE | 2016-12-06 10:40 | RADRPT ---
PROCEDURE: US Lower extremity Venous. CLINICAL INDICATION: Evaluate for DVT. TECHNIQUE: Multiple sonographic images of the bilateral lower extremity deep venous system was obt ained utilizing grayscale, color-flow, compressive sonography and doppler imaging with augmentation. The images were reviewed on a PACS workstation. COMPARISON: None. FINDINGS: There is normal compressibility and flow within the bilateral common femoral, deep femoral, superfic ial femoral and popliteal veins. The deep veins the calf were incompletely visualized. IMPRESSION: No sonographic evidence for deep venous thrombosis the bilateral lower extremities. Physician Simran Date Time Electronically viewed and signed by Physician Simran on 12/06/2016 10:40 ML/
[2016-12-06] MEDS ORDERED: SOD CHLORIDE 0.9% 500 ML IV ONE (13:00)
[2016-12-06] MEDS ORDERED: FUROSEMIDE 40 MG INJ IV STA (13:27)
[2016-12-06] MEDS ORDERED: LIDOCAINE 1% (MPF) 5 ML VIAL SC ONE (14:00)
[2016-12-06] MEDS ORDERED: VANCOMYCIN IV PER PHARMACY XX SCH (14:00)
[2016-12-06] MEDS: DOPamine-D5W 1.6 MG/ML 250 ML IV SCH (14:14)
[2016-12-06] MEDS ORDERED: VANCOMYCIN 1 GM in NS 250 ML IVPB SCH (14:30)
[2016-12-06] MEDS ORDERED: VANCOMYCIN 1 GM in NS 250 ML IVPB ONE (15:00)
[2016-12-06 15:02] LABS: ABNORMAL IP MESSAGE 1; HEMATOCRIT 33.6 % (42.0-52.0); HEMOGLOBIN 11.1 g/dl (14.0-18.0); MEAN CORPUSCULAR HEMOGLOBIN 30.7 pg (29.0-33.0); MEAN CORPUSCULAR VOLUME 92.8 fl (82.0-101.0); MEAN PLATELET VOLUME 12.9 fl (7.4-10.4); PLATELET COUNT 36 10^3/UL (140-415); POSITIVE DIFF @See below; RED BLOOD COUNT 3.62 10^6/ul (4.70-6.10); RED CELL DISTRIBUTION WIDTH 14.6 % (11.5-14.5)
[2016-12-06 15:21] LABS: CALCIUM 7.1 mg/dl (8.4-10.2); CREATININE 0.75 mg/dl (0.61-1.24); MAGNESIUM 1.9 mg/dl (1.7-2.5); POTASSIUM 4.7 mmol/L (3.5-5.1)
[2016-12-06 15:22] LABS: INR 1.97; PROTIME 22.6 Sec (12.2-14.2); PT RATIO 1.8
[2016-12-06 15:23] LABS: PARTIAL THROMBOPLASTIN TIME 38.8 Sec (25.0-35.0)
[2016-12-06] MEDS ORDERED: SOD CHLORIDE 0.9% 250 ML IV* ONE (15:31)
--- NOTE | 2016-12-06 15:39 | CONS ---
Date/Time of Note Date/Time of Note DATE: 12/06/16 TIME: 15:35 Assessment/Plan Assessment/Plan Chief Complaint/Hosp Course Assessment 1. Hypoxemic respiratory failure likely secondary to combination of healthcare associated pneumonia with likely underlying severe COPD. Possible component of aspiration also. 2. Advanced pancreatic cancer with a history of Whipple's resection. 3. Failure to thrive with progressive cachexia. Plan 1. Transfer to intensive care unit for further monitoring 2. I have attempted to contact patient's next of kin per chart who is by the name of Genny. I was unable to contact family. 3. Continue broad-spectrum antibiotics, BiPAP, IV fluids. May require vasopressors. 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 Problems: Consultation Date/Type/Reason Admit Date/Time Nov 28, 2016 at 18:48 Date of Consultation: Dec 06, 2016 Reason for Consultation Hypoxia and low blood pressure Hx of Present Illness 56-year-old gentleman with a history of pancreatic cancer status post Whipple's disease with progression of deterioration in condition to the point where he was unable to take care of himself admitted to the hospital significantly debilitated following extensive discussions with hematology oncology and palliative care. Today he has had change in condition with worsening hypoxia low blood pressure. He opens his eyes on BiPAP but has significant global weakness. Chest x-ray demonstrates new bilateral infiltrates concerning for healthcare associated pneumonia. Per chart family meeting had been held and they were aware of his very poor prognosis but he still remains full code. Constitutional: requiring IVF, requiring O2 (In extremis moaning and groaning) Eyes: no complaints ENT: no complaints Respiratory: shortness of breath Cardiovascular: no complaints Gastrointestinal: decreased appetite, nausea, other (Generalized abdominal pain in all 4 quadrants, tender without rebound), pain Musculoskeletal: bone/joint pain, swelling Neurologic: no complaints Psychological: anxiety, depression Past Medical History Pancreatic cancer status post Whipple's COPD Ongoing tobacco use Past Surgical History Status post Whipple surgery Past Surgical Hx: no surgical history Social History Smoking Status: Current every day smoker Exam/Review of Systems Vital Signs Vitals Vital Signs Date Time Temp Pulse Resp B/P Pulse Ox O2 Delivery O2 Flow Rate FiO2 12/06/16 15:19 72/40 12/06/16 14:20 59 16 99 12/06/16 13:02 100 12/06/16 12:59 BIPAP 12/06/16 12:10 97.4 12/06/16 02:00 8.0 Intake and Output 12/05/16 12/05/16 12/06/16 15:00 23:00 07:00 Intake Total 610 ml 450 ml 550 ml Output Total 420 ml 700 ml Balance 190 ml -250 ml 550 ml Exam GENERAL: Thin cachectic gentleman on BiPAP. VITAL SIGNS: per chart NECK: Supple. No JVD or lymphadenopathy. CARDIAC EXAM: S1, S2. No added sounds or murmurs. CHEST: clear bilaterally, No added sounds, rales or wheezes ABDOMEN: Soft, nontender. No guarding or rebound. EXTREMITIES: No cyanosis, clubbing or edema. NEUROLOGIC: Generalized weakness. No focal deficits. Results Result Diagram: 12/06/16 1445 12/03/16 0547 Results 24 hrs Laboratory Tests Test 12/06/16 06:02 12/06/16 14:40 12/06/16 14:45 Blood Gas Specimen Source Blood arterial Arterial Blood Date Drawn 12/06/2016 6:25:46 AM Arterial Blood pH (Temp corrected) 7.498 H Arterial Blood pCO2 (Temp correct) 31.5 L Arterial Blood pO2 (Temp corrected) 51.4 *L Arterial Blood HCO3 23.9 Arterial Blood Base Excess 1.5 Arterial Blood Oxygen Saturation 87.1 L Nate Test ACCEPTAB Arterial Blood Gas Puncture Site Left Radial Arterial Blood Carboxyhemoglobin 0.3 Arterial Blood Methemoglobin 0.1 Blood Gas A-a O2 Differential 630.1 H Oxyhemoglobin Percent 86.8 L Total Hemoglobin 14.4 Blood Gas Temperature 37.0 Blood Gas Modality MASK - NRB FiO2 100.0 Blood Gas Critical Value Read Back Max GODOY R.N Blood Gas Notified Whom MM Blood Gas Notified Time 12/06/2016 6:39:38 AM B-Type Natriuretic Peptide 2010 H White Blood Count 1.0 #L Red Blood Count 3.62 L Hemoglobin 11.1 L Hematocrit 33.6 L Mean Corpuscular Volume 92.8 Mean Corpuscular Hemoglobin 30.7 Mean Corpuscular Hemoglobin Concent 33.0 Red Cell Distribution Width 14.6 H Platelet Count 36 L Mean Platelet Volume 12.9 H Neutrophils % Lymphocytes % Monocytes % Eosinophils % Basophils % Nucleated Red Blood Cells % 0.0 Neutrophils # Lymphocytes # Monocytes # Eosinophils # Basophils # Nucleated Red Blood Cells # Prothrombin Time 22.6 #H Prothrombin Time Ratio 1.8 INR International Normalized Ratio 1.97 Activated Partial Thromboplast Time 38.8 H Thrombin Time 18.0 Sodium Level 133 L Potassium Level 4.7 Chloride Level 105 Carbon Dioxide Level 26 Anion Gap 7 L Blood Urea Nitrogen 50 H Creatinine 0.75 Glucose Level 36 *L Lactic Acid Level 2.9 *H Calcium Level 7.1 L Magnesium Level 1.9 Medications Medications Current Medications Ondansetron HCl (Zofran Inj) 4 mg Q6H PRN IV NAUSEA AND/OR VOMITING Last administered on 11/30/16 09:29; Admin Dose 4 MG; Start 11/28/16 at 20:00 Acetaminophen (Tylenol Tab) 650 mg Q6H PRN PO PAIN LEVEL 1-3 OR FEVER; Start at 20:00 Docusate Sodium (Colace) 100 mg Q12H PRN PO CONSTIPATION; Start 11/28/16 at 20: 00 Magnesium Hydroxide (Milk Of Mag) 30 ml DAILY PRN PO CONSTIPATION; Start at 20:00 Sodium Biphosphate/ Sodium Phosphate (Fleet Enema) 133 ml DAILY PRN [place] CONSTIPATION; Start 11/28/16 at 20:00 Pantoprazole (Protonix Tab) 40 mg DAILY@06 PO Last administered on 12/04/16 06 :07; Admin Dose 40 MG; Start 11/29/16 at 06:00 Heparin Sodium (Porcine) (Heparin (5000 Units/0.5 ml)) 5,000 unit Q12 SC Last administered on 12/04/16 21:37; Admin Dose 5,000 UNIT; Start 11/28/16 at 21:00 Hydralazine HCl (Apresoline) 10 mg Q6H PRN IV SBP > 180; Start 11/28/16 at 20:00 Diphenoxylate HCl/ Atropine (Lomotil Liquid Cup) 5 ml Q6H PRN GTB DIARRHEA; Start 11/28/16 at 20:00 Loratadine (Claritin) 10 mg DAILY PO Last administered on 12/04/16 09:04; Admin Dose 10 MG; Start 11/29/16 at 09:00 Hydromorphone HCl (Dilaudid) 1 mg Q2H PRN IV PAIN LEVEL 1-3 Last administered on 11/29/16 16:34; Admin Dose 1 MG; Start 11/29/16 at 11:00 Dexamethasone (Decadron) 6 mg BID IV Last administered on 12/06/16 09:03; Admin Dose 6 MG; Start 11/29/16 at 21:00 Furosemide 20 mg 20 mg DAILY IV Last administered on 12/06/16 09:03; Admin Dose 20 MG; Start 11/30/16 at 09:00 Potassium Chloride/Dextrose/ Sod Cl 1,000 ml @ 75 mls/hr [id number] IV Last administered on 12/06/16 13:59; Admin Dose 75 MLS/HR; Start 12/03/16 at 20:00 Dopamine HCl/ Dextrose 250 ml @ 7.298 mls/ hr TITRATE IV Last administered on 12/06/16 14:14; Admin Dose 7.298 MLS/HR; Start 12/06/16 at 13:30 Piperacillin Sod/ Tazobactam Sod 100 ml @ 200 mls/hr Q6 IVPB ; Start 12/06/16 at 14:00 Vancomycin HCl 250 ml @ 125 mls/hr ONCE ONCE IVPB ; Start 12/06/16 at 15:00; Stop 12/06/16 at 16:59 Vancomycin HCl (Vancocin) 250 ml @ 125 mls/hr Q8H IVPB ; Start 12/06/16 at 22: 00 SORAIDA GRIGGS MD, [facility] Dec 06, 2016 15:38
[2016-12-06 16:00] LABS: EOSINOPHILS % (M) 1 % (0-7); GIANT THROMBO% (M) 4 % (0-0); MONOCYTES % (M) 12 % (0-11); PLATELET ESTIMATE DECREASED
[2016-12-06] MEDS ORDERED: NORepinephrine 32 MG in DEXTROSE 5% 218 ML IV SCH (16:00)
--- NOTE | 2016-12-06 16:12 | PN ---
Date/Time of Note Date/Time of Note DATE: 12/06/16 TIME: 16:11 Assessment/Plan VTE Prophylaxis VTE Prophylaxis Intervention: contraindicated Lines/Catheters IV [facility] PICC Line Central line still needed: Yes Urinary Cath still in place: Yes Reason Cath still needed: terminal illness/intractable pain Assessment/Plan Chief Complaint/Hosp Course 1. Acute hypoxic respiratory failure. Etiology could be multifactorial including underlying aspiration and infectious process. Patient currently on noninvasive positive pressure ventilation. Pulmonology consult has been obtained. The patient will be started on inhaled bronchodilators. Patient may eventually need intubation. 2. End-stage pancreatic cancer. Not a Candidate for chemotherapy or other therapies. Family refusing any hospice at this time. 3. Cachexia. Secondary to underlying advanced pancreatic cancer. The patient will be kept n.p.o. because of worsening respiratory distress. Palliative care has been following the patient. 4. Shock. Etiology unclear. Possible underlying sepsis. The patient will be started on IV pressors to maintain appropriate blood pressure readings. 5. Pancytopenia. Most probably secondary to underlying malignant process. Blood products will be transfused as appropriate. 6. Coagulopathy. Etiology unclear. Patient will be given a single unit of fresh frozen plasma. 7. Dysphagia. Status post evaluation by speech therapy. The patient is not a candidate for any oral intake at least for the time being. 8. Fluids, electrolytes, and nutrition. N.p.o. 9. DVT prophylaxis. Contraindicated. 10. Gastrointestinal prophylaxis. Proton pump inhibitors. 11. Plan. Start empiric antibiotics for any underlying infectious process. Transfer the patient in intensive care unit for IV pressors. Stat PICC line placement. Obtain pulmonology consult. Extensive discussion was done with the patient's regarding the irreversibility of the patient's condition, the very poor prognosis, and the need for life support including mechanical ventilation. Nevertheless, the patient's wants to talk to the family before making a decision on CODE STATUS. The patient remains to be full code at this time. Case discussed with Dr. Troy. Critical care time: 40 mins. Problems: Subjective 24 Hr Interval Summary Free Text/Dictation The patient in severe respiratory distress. Remains on BiPAP. Exam/Review of Systems Vital Signs Vitals Vital Signs Date Time Temp Pulse Resp B/P Pulse Ox O2 Delivery O2 Flow Rate FiO2 12/06/16 15:44 76 100 100 12/06/16 15:19 72/40 12/06/16 14:20 16 12/06/16 12:59 BIPAP 12/06/16 12:10 97.4 12/06/16 02:00 8.0 Intake and Output 12/05/16 12/05/16 12/06/16 15:00 23:00 07:00 Intake Total 610 ml 450 ml 550 ml Output Total 420 ml 700 ml Balance 190 ml -250 ml 550 ml Exam General: Thin, frail looking and malnourished 56 year-old male lying in bed in moderate to severe respiratory distress HEENT: Normocephalic, atraumatic. Eyes: Anicteric sclerae, conjunctivae clear. ENT: Nasal septum midline, oral mucosa moist. Neck supple, no JVD noticed. Respiratory: Bilaterally diminished breath sounds. Use of accessory muscles of respiration. On BiPAP. Cardiovascular: S1, S2 heard. No murmurs or gallops. Abdomen: Soft, nontender, and nondistended. Genitourinary: Deferred. Extremities: No cyanosis, no clubbing. Left lower extremity 2-3+ pitting edema. Pedal pulses nonpalpable Neurologic: The patient is somnolent. Hardly wakes up to call. Results Result Diagram: 12/06/16 1445 12/06/16 1445 Results 24 hrs Laboratory Tests Test 12/06/16 06:02 12/06/16 14:40 12/06/16 14:45 12/06/16 15:38 Blood Gas Specimen Source Blood arterial Arterial Blood Date Drawn 12/06/2016 6:25:46 AM Arterial Blood pH (Temp corrected) 7.498 H Arterial Blood pCO2 (Temp correct) 31.5 L Arterial Blood pO2 (Temp corrected) 51.4 *L Arterial Blood HCO3 23.9 Arterial Blood Base Excess 1.5 Arterial Blood Oxygen Saturation 87.1 L Nate Test ACCEPTAB Arterial Blood Gas Puncture Site Left Radial Arterial Blood Carboxyhemoglobin 0.3 Arterial Blood Methemoglobin 0.1 Blood Gas A-a O2 Differential 630.1 H Oxyhemoglobin Percent 86.8 L Total Hemoglobin 14.4 Blood Gas Temperature 37.0 Blood Gas Modality MASK - NRB FiO2 100.0 Blood Gas Critical Value Read Back Max GODOY R.N Blood Gas Notified Whom MM Blood Gas Notified Time 12/06/2016 6:39:38 AM B-Type Natriuretic Peptide 2010 H White Blood Count 1.0 #L Red Blood Count 3.62 L Hemoglobin 11.1 L Hematocrit 33.6 L Mean Corpuscular Volume 92.8 Mean Corpuscular Hemoglobin 30.7 Mean Corpuscular Hemoglobin Concent 33.0 Red Cell Distribution Width 14.6 H Platelet Count 36 L Mean Platelet Volume 12.9 H Neutrophils % Segmented Neutrophils % (Manual) 82 H Lymphocytes % Lymphocytes % (Manual) 5 L Monocytes % Monocytes % (Manual) 12 H Eosinophils % Eosinophils % (Manual) 1 Basophils % Nucleated Red Blood Cells % 0.0 Neutrophils # Absolute Lymphocytes (Manual) 0.0 L Lymphocytes # Monocytes # Absolute Monocytes (Manual) 0.1 L Eosinophils # Basophils # Nucleated Red Blood Cells # Thrombocytosis 4 H Platelet Estimate DECREASED Prothrombin Time 22.6 #H Prothrombin Time Ratio 1.8 INR International Normalized Ratio 1.97 Activated Partial Thromboplast Time 38.8 H Thrombin Time 18.0 Sodium Level 133 L Potassium Level 4.7 Chloride Level 105 Carbon Dioxide Level 26 Anion Gap 7 L Blood Urea Nitrogen 50 H Creatinine 0.75 Glucose Level 36 *L Lactic Acid Level 2.9 *H Calcium Level 7.1 L Magnesium Level 1.9 Bedside Glucose 437 *H Medications Medications Current Medications Ondansetron HCl (Zofran Inj) 4 mg Q6H PRN IV NAUSEA AND/OR VOMITING Last administered on 11/30/16 09:29; Admin Dose 4 MG; Start 11/28/16 at 20:00 Acetaminophen (Tylenol Tab) 650 mg Q6H PRN PO PAIN LEVEL 1-3 OR FEVER; Start at 20:00 Docusate Sodium (Colace) 100 mg Q12H PRN PO CONSTIPATION; Start 11/28/16 at 20: 00 Magnesium Hydroxide (Milk Of Mag) 30 ml DAILY PRN PO CONSTIPATION; Start at 20:00 Sodium Biphosphate/ Sodium Phosphate (Fleet Enema) 133 ml DAILY PRN [place] CONSTIPATION; Start 11/28/16 at 20:00 Pantoprazole (Protonix Tab) 40 mg DAILY@06 PO Last administered on 12/04/16 06 :07; Admin Dose 40 MG; Start 11/29/16 at 06:00 Heparin Sodium (Porcine) (Heparin (5000 Units/0.5 ml)) 5,000 unit Q12 SC Last administered on 12/04/16 21:37; Admin Dose 5,000 UNIT; Start 11/28/16 at 21:00 Hydralazine HCl (Apresoline) 10 mg Q6H PRN IV SBP > 180; Start 11/28/16 at 20:00 Diphenoxylate HCl/ Atropine (Lomotil Liquid Cup) 5 ml Q6H PRN GTB DIARRHEA; Start 11/28/16 at 20:00 Loratadine (Claritin) 10 mg DAILY PO Last administered on 12/04/16 09:04; Admin Dose 10 MG; Start 11/29/16 at 09:00 Hydromorphone HCl (Dilaudid) 1 mg Q2H PRN IV PAIN LEVEL 1-3 Last administered on 11/29/16 16:34; Admin Dose 1 MG; Start 11/29/16 at 11:00 Dexamethasone (Decadron) 6 mg BID IV Last administered on 12/06/16 09:03; Admin Dose 6 MG; Start 11/29/16 at 21:00 Furosemide 20 mg 20 mg DAILY IV Last administered on 12/06/16 09:03; Admin Dose 20 MG; Start 11/30/16 at 09:00 Potassium Chloride/Dextrose/ Sod Cl 1,000 ml @ 75 mls/hr [id number] IV Last administered on 12/06/16 13:59; Admin Dose 75 MLS/HR; Start 12/03/16 at 20:00 Dopamine HCl/ Dextrose 250 ml @ 7.298 mls/ hr TITRATE IV Last administered on 12/06/16 14:14; Admin Dose 7.298 MLS/HR; Start 12/06/16 at 13:30 Piperacillin Sod/ Tazobactam Sod 100 ml @ 200 mls/hr Q6 IVPB ; Start 12/06/16 at 14:00 Vancomycin HCl 250 ml @ 125 mls/hr ONCE ONCE IVPB ; Start 12/06/16 at 15:00; Stop 12/06/16 at 16:59 Vancomycin HCl 250 ml @ 125 mls/hr Q8H IVPB ; Start 12/06/16 at 22:00 Norepinephrine/ Dextrose (Levophed/D5W) 250 ml @ 0.46 mls/hr TITRATE IV ; Start 12/06/16 at 16:00 IV Flush (NS 10 ml) 10 ml PRN PRN IV IV PROTOCOL; Start 12/06/16 at 16:00 SHAWANDA RUFF NP Dec 06, 2016 16:11
[2016-12-06] MEDS: PIPER-TAZO 3.375 GM IV (PMX) 100 ML IVPB SCH ×2 (16:14→23:56)
[2016-12-06 16:40] LABS: CREATINE KINASE 275 IU/L (23-200)
[2016-12-06 16:54] LABS: CK-MB 2.95 ng/ml (0.0-2.4); TROPONIN-I < 0.012 ng/ml (0.00-0.12)
[2016-12-06] MEDS: ALBUTEROL/IPRATROPIUM (NEB) 3 ML AMP HHN SCH ×2 (17:33→20:29)
--- NOTE | 2016-12-06 18:41 | RADRPT ---
PROCEDURE: US guidance for PICC line CLINICAL INDICATION: PICC line placement TECHNIQUE: Multiple real-time images were acquired of the patient's arm utilizing a high resolutio n transducer. This was performed by the PICC line nurse for venous access. COMPARISON: None FINDINGS: Ultrasound guidance for PICC line placement. IMPRESSION: Ultrasound guidance for PICC line placement. RPTAT: AA .Stephen Vogt MD, MD Date Time Electronically viewed and signed by .Stephen Vogt MD, on 12/06/2016 18:40 .S/
--- NOTE | 2016-12-06 19:07 | RADRPT ---
PROCEDURE: Chest radiograph CLINICAL INDICATION: Check Line Placement. TECHNIQUE: Single portable frontal view. COMPARISON: Radiograph 11/28/2016. FINDINGS: The right PICC terminates at the inferior cavoatrial junction. The right internal jugular central venous port catheter terminates at the superior cavoatrial juncti on Interval development of bilateral central alveolar opacities, consistent with either heart failure or a multi focal pneumonia. No pleural effusions. The cardiomediastinal silhouette is normal. No suspicious bone lesion. IMPRESSION: 1. Right PICC terminates at the inferior cavoatrial junction. 2. New central opacities consistent with either multi focal pneumonia or pulmonary edema. RPTAT: PP Physician Anne Date Time Electronically viewed and signed by Physician Anne on 12/06/2016 19:06 /
[2016-12-06] MEDS: HYDROmorphONE 1 MG/ML SYG IV PRN (20:47)
[2016-12-06] MEDS: VANCOMYCIN 1 GM (PMX) 250 ML IVPB SCH (21:37)
[2016-12-06] MEDS ORDERED: SOD CHLORIDE 0.9% 1,000 ML IV ONE (22:00)
[2016-12-07] VITALS (71 sets, daily range): BP systolic 80–138; BP diastolic 64–104; PULSE 55–133; RESP 14–32
[2016-12-07] MEDS ORDERED: VANCOMYCIN 750 MG in SOD CHLORIDE 0.9% 150 ML IVPB SCH (02:00)
[2016-12-07 05:06] LABS: ABNORMAL IP MESSAGE 1; HEMATOCRIT 34.9 % (42.0-52.0); HEMOGLOBIN 11.6 g/dl (14.0-18.0); MEAN CORPUSCULAR HEMOGLOBIN 30.1 pg (29.0-33.0); MEAN CORPUSCULAR HGB CONC 33.2 g/dl (32.0-37.0); MEAN CORPUSCULAR VOLUME 90.4 fl (82.0-101.0); MEAN PLATELET VOLUME 13.3 fl (7.4-10.4); POSITIVE DIFF @See below; RED BLOOD COUNT 3.86 10^6/ul (4.70-6.10); RED CELL DISTRIBUTION WIDTH 14.5 % (11.5-14.5); WHITE BLOOD COUNT 1.7 10^3/ul (4.8-10.8)
[2016-12-07 05:16] LABS: ANION GAP 13 (8-16); BLOOD UREA NITROGEN 50 mg/dl (7-20); CALCIUM 7.2 mg/dl (8.4-10.2); CARBON DIOXIDE 28 mmol/L (21-31); CHLORIDE 104 mmol/L (97-110); CREATININE 0.59 mg/dl (0.61-1.24); POTASSIUM 4.3 mmol/L (3.5-5.1); SODIUM 141 mmol/L (135-144)
[2016-12-07 05:17] LABS: ADD UMIC YES; UR ASCORBIC ACID NEGATIVE (NEGATIVE); UR BILIRUBIN (Dip) NEGATIVE (NEGATIVE); UR BLOOD (Dip) 2+ mg/dL (NEGATIVE); UR CLARITY CLEAR (CLEAR); UR COLOR STRAW (YELLOW); UR GLUCOSE (Dip) NEGATIVE (NEGATIVE); UR KETONES (Dip) NEGATIVE (NEGATIVE); UR LEUKOCYTE ESTERASE (Dip) NEGATIVE Leu/ul (NEGATIVE); UR NITRITE (Dip) NEGATIVE (NEGATIVE); UR RBC 1 /HPF (0-5); UR SPECIFIC GRAVITY (Dip) 1.006 (1.003-1.030); UR TOTAL PROTEIN (Dip) NEGATIVE (NEGATIVE); UR UROBILINOGEN (Dip) NEGATIVE (NEGATIVE)
[2016-12-07 05:21] LABS: MAGNESIUM 1.8 mg/dl (1.7-2.5); PHOSPHORUS 3.4 mg/dl (2.5-4.9)
[2016-12-07 05:25] LABS: PLATELET COUNT 20 10^3/UL (140-415)
[2016-12-07 05:26] LABS: TROPONIN-I 0.014 ng/ml (0.00-0.12)
[2016-12-07] MEDS: PIPER-TAZO 3.375 GM IV (PMX) 100 ML IVPB SCH (05:36)
[2016-12-07] MEDS: PANTOPRAZOLE (EC) 40 MG TAB PO SCH (05:39)
[2016-12-07] MEDS: VANCOMYCIN 1 GM (PMX) 250 ML IVPB SCH ×2 (06:05→14:43)
[2016-12-07] MEDS ORDERED: SOD CHLORIDE 0.9% 250 ML IV* ONE (06:13)
[2016-12-07] MEDS ORDERED: PANTOPRAZOLE 40 MG INJ IV SCH (06:30)
[2016-12-07 07:26] LABS: GLUCOSE < 20 mg/dl (70-220)
[2016-12-07] MEDS: DEXTROSE 50% 50 ML SYRINGE IV PRN ×3 (07:45→18:37)
[2016-12-07] MEDS ORDERED: DEXTROSE 50% 50 ML SYRINGE IV PRN (08:00)
[2016-12-07 08:29] LABS: AADO2 Arterial 381.6 mmHg (7.0-24.0); Allen Test ACCEPTAB; Arterial Base Excess -1.3 mmol/L (-3.0-3); Arterial COHb 0.2 % (0.0-3.0); Arterial Fraction of Oxyhgb 98.6 % (93.0-99.0); Arterial HCO3 22.2 mmol/L (22.0-26.0); Arterial MetHb 0.3 % (0.0-1.5); Arterial Total Hemglobin 10.9 g/dl (12.0-18.0); Blood Gas IEPAP 16/5; MODE MASK - BIPAP
[2016-12-07] MEDS: LORATADINE 10 MG TAB PO SCH (09:00)
[2016-12-07 09:37] LABS: ANISOCYTOSIS 1+ (0-0); BURR CELLS 1+ (0-0); GIANT THROMBO% (M) 9 % (0-0); METAMYELOCYTES %M 4 % (0-0); MONOCYTES % (M) 4 % (0-11); MYELOCYTES % (M) 1 % (0.0-0.0); PLATELET ESTIMATE DECREASED; POIKILOCYTOSIS 3+ (0-0)
[2016-12-07] MEDS: ALBUTEROL/IPRATROPIUM (NEB) 3 ML AMP HHN SCH ×4 (09:53→21:17)
[2016-12-07] MEDS: DEXAMETHASONE 4 MG/ML 1 ML INJ IV SCH ×2 (10:02→21:55)
--- NOTE | 2016-12-07 10:13 | PN ---
Date/Time of Note Date/Time of Note DATE: 12/07/16 TIME: 10:07 Assessment/Plan VTE Prophylaxis VTE Prophylaxis Intervention: contraindicated VTE Contraindication Reason: thrombocytopenia Lines/Catheters IV [facility] PICC Line Central line still needed: Yes Urinary Cath still in place: Yes Reason Cath still needed: urinary retention Assessment/Plan Chief Complaint/Hosp Course A/P: 56 M with: 1. Acute hypoxic respiratory failure. Etiology could be multifactorial including underlying aspiration and infectious process. Patient currently on noninvasive positive pressure ventilation. Pulmonology consult has been obtained. - continue inhaled bronchodilators. Patient may eventually need intubation. 2. End-stage pancreatic cancer. Not a Candidate for chemotherapy or other therapies. Family refusing any hospice at this time. - continue pain control meds, IV steroids for now - add D5 1/2 NS x 12 hrs for low sugars today 3. Cachexia. Secondary to underlying advanced pancreatic cancer. - continue n.p.o. because of worsening respiratory distress. - palliative care on case 4. Shock. Etiology unclear. Possible underlying sepsis. - continue IV pressors to maintain appropriate blood pressure readings. 5. Pancytopenia. Most probably secondary to underlying malignant process. - will order DIC panel, and d/c heparin and zosyn (low plts) - plt ordered today as well. 6. Coagulopathy - f/u DIC panel 7. Dysphagia. Status post evaluation by speech therapy. The patient is not a candidate for any oral intake at least for a time being. 8. Fluids, electrolytes, and nutrition. N.p.o. 9. DVT prophylaxis. Contraindicated. 10. Gastrointestinal prophylaxis. Proton pump inhibitors. Extensive discussion was done with the patient's over the weekend apparently regarding the reversibility of the patient's condition, the very poor prognosis, and the need for a life support including mechanical ventilation. Nevertheless, the patient's wants to talk to the family before making a decision on CODE STATUS. The patient remains to be full code at this time. Critical care time spent today = 50 min. Problems: Subjective 24 Hr Interval Summary Free Text/Dictation No signs of current bleeding. Ordered for plt transfusion today. Pt still with pain smpts, on pressors. On bipap presently. Exam/Review of Systems Vital Signs Vitals Vital Signs Date Time Temp Pulse Resp B/P Pulse Ox O2 Delivery O2 Flow Rate FiO2 12/07/16 08:00 56 12/07/16 06:30 19 107/81 100 12/07/16 06:00 BIPAP 12/07/16 05:53 100 12/07/16 04:00 95.8 12/06/16 08:15 3.0 Intake and Output 12/06/16 12/06/16 12/07/16 15:00 23:00 07:00 Intake Total 1525 ml 1087.49 ml 1800.42 ml Output Total 575 ml 800 ml 605 ml Balance 950 ml 287.49 ml 1195.42 ml Exam Constitutional: other (cachetic, frail) Psych: anxiety, depression Head: normocephalic Eyes: nl conjunctiva ENMT: nl external ears & nose Neck: non-tender, supple Respiratory: clear to auscultation, normal air movement Cardiovascular: regular rate and rhythm Gastrointestinal: soft Musculoskeletal: nl extremities to inspection, nl gait and stance Extremities: no LE edema B/L Results Result Diagram: 12/07/16 0410 12/07/16 0410 Results 24 hrs Laboratory Tests Test 12/06/16 14:40 12/06/16 14:45 12/06/16 15:38 12/06/16 16:00 B-Type Natriuretic Peptide 2010 H White Blood Count 1.0 #L Red Blood Count 3.62 L Hemoglobin 11.1 L Hematocrit 33.6 L Mean Corpuscular Volume 92.8 Mean Corpuscular Hemoglobin 30.7 Mean Corpuscular Hemoglobin Concent 33.0 Red Cell Distribution Width 14.6 H Platelet Count 36 L Mean Platelet Volume 12.9 H Neutrophils % Segmented Neutrophils % (Manual) 82 H Lymphocytes % Lymphocytes % (Manual) 5 L Monocytes % Monocytes % (Manual) 12 H Eosinophils % Eosinophils % (Manual) 1 Basophils % Nucleated Red Blood Cells % 0.0 Neutrophils # Absolute Lymphocytes (Manual) 0.0 L Lymphocytes # Monocytes # Absolute Monocytes (Manual) 0.1 L Eosinophils # Basophils # Nucleated Red Blood Cells # Thrombocytosis 4 H Platelet Estimate DECREASED Prothrombin Time 22.6 #H Prothrombin Time Ratio 1.8 INR International Normalized Ratio 1.97 Activated Partial Thromboplast Time 38.8 H Thrombin Time 18.0 Sodium Level 133 L Potassium Level 4.7 Chloride Level 105 Carbon Dioxide Level 26 Anion Gap 7 L Blood Urea Nitrogen 50 H Creatinine 0.75 Glucose Level 36 *L Lactic Acid Level 2.9 *H Calcium Level 7.1 L Magnesium Level 1.9 Creatine Kinase 275 H Creatine Kinase Index 1.1 Creatinine Kinase MB (Mass) 2.95 H Troponin I < 0.012 Bedside Glucose 437 *H 153 Test 12/06/16 16:45 12/06/16 20:00 12/07/16 00:01 12/07/16 02:00 Bedside Glucose 124 Lactic Acid Level 3.4 *H 2.0 Urine Color STRAW Urine Clarity CLEAR Urine pH 6.0 Urine Specific [place] 1.006 Urine Ketones NEGATIVE Urine Nitrite NEGATIVE Urine Bilirubin NEGATIVE Urine Urobilinogen NEGATIVE Urine Leukocyte Esterase NEGATIVE Urine Microscopic RBC 1 Urine Microscopic WBC 0 Urine Hemoglobin 2+ H Urine Glucose NEGATIVE Urine Total Protein NEGATIVE Test 12/07/16 04:10 12/07/16 05:21 12/07/16 07:00 12/07/16 08:15 White Blood Count 1.7 #L Red Blood Count 3.86 L Hemoglobin 11.6 L Hematocrit 34.9 L Mean Corpuscular Volume 90.4 Mean Corpuscular Hemoglobin 30.1 Mean Corpuscular Hemoglobin Concent 33.2 Red Cell Distribution Width 14.5 Platelet Count 20 #*L Mean Platelet Volume 13.3 H Neutrophils % Segmented Neutrophils % (Manual) 75 Band Neutrophils % (Manual) 14 H Lymphocytes % Lymphocytes % (Manual) 3 L Monocytes % Monocytes % (Manual) 4 Eosinophils % Basophils % Metamyelocytes % (manual) 4 H Myelocytes % (Manual) 1 H Nucleated Red Blood Cells % 0.0 Neutrophils # Neutrophils # (Manual) 1.3 L Band Neutrophils # 0.2 Absolute Lymphocytes (Manual) 0.0 L Lymphocytes # Monocytes # Absolute Monocytes (Manual) 0.0 L Eosinophils # Basophils # Metamyelocytes # 0.0 Myelocytes # 0.0 Nucleated Red Blood Cells # Thrombocytosis 9 H Platelet Estimate DECREASED Poikilocytosis 3+ Anisocytosis 1+ Macrocytosis 1+ Sodium Level 141 Potassium Level 4.3 Chloride Level 104 Carbon Dioxide Level 28 Anion Gap 13 Blood Urea Nitrogen 50 H Creatinine 0.59 L Glucose Level < 20 #*L Lactic Acid Level 1.7 Calcium Level 7.2 L Phosphorus Level 3.4 Magnesium Level 1.8 Troponin I 0.014 Lab Scanned Report BLOOD TRANSFUSION Blood Gas Specimen Source Blood arterial Arterial Blood Date Drawn 12/07/2016 7:50:43 AM Arterial Blood pH (Temp corrected) 7.447 Arterial Blood pCO2 (Temp correct) 32.9 L Arterial Blood pO2 (Temp corrected) 298.5 H Arterial Blood HCO3 22.2 Arterial Blood Base Excess -1.3 Arterial Blood Oxygen Saturation 99.1 H Nate Test ACCEPTAB Arterial Blood Gas Puncture Site Right Radial Arterial Blood Carboxyhemoglobin 0.2 Arterial Blood Methemoglobin 0.3 Blood Gas A-a O2 Differential 381.6 H Oxyhemoglobin Percent 98.6 Total Hemoglobin 10.9 L Blood Gas Temperature 37.0 Blood Gas Respiration Rate 12.0 Blood Gas Actual Respiration Rate 17 Blood Gas Modality MASK - BIPAP FiO2 100.0 Blood Gas IPAP/EPAP Ratio 16/ Blood Gas Notified Whom JLD Blood Gas Notified Time 12/07/2016 8:29:21 AM Bedside Glucose 95 Medications Medications Current Medications Ondansetron HCl (Zofran Inj) 4 mg Q6H PRN IV NAUSEA AND/OR VOMITING Last administered on 11/30/16 09:29; Admin Dose 4 MG; Start 11/28/16 at 20:00 Acetaminophen (Tylenol Tab) 650 mg Q6H PRN PO PAIN LEVEL 1-3 OR FEVER; Start at 20:00 Docusate Sodium (Colace) 100 mg Q12H PRN PO CONSTIPATION; Start 11/28/16 at 20: 00 Magnesium Hydroxide (Milk Of Mag) 30 ml DAILY PRN PO CONSTIPATION; Start at 20:00 Sodium Biphosphate/ Sodium Phosphate (Fleet Enema) 133 ml DAILY PRN [place] CONSTIPATION; Start 11/28/16 at 20:00 Hydralazine HCl (Apresoline) 10 mg Q6H PRN IV SBP > 180; Start 11/28/16 at 20:00 Diphenoxylate HCl/ Atropine (Lomotil Liquid Cup) 5 ml Q6H PRN GTB DIARRHEA; Start 11/28/16 at 20:00 Loratadine (Claritin) 10 mg DAILY PO Last administered on 12/04/16 09:04; Admin Dose 10 MG; Start 11/29/16 at 09:00 Hydromorphone HCl (Dilaudid) 1 mg Q2H PRN IV PAIN LEVEL 1-3 Last administered on 12/06/16 20:47; Admin Dose 1 MG; Start 11/29/16 at 11:00 Dexamethasone (Decadron) 6 mg BID IV Last administered on 12/07/16 10:02; Admin Dose 6 MG; Start 11/29/16 at 21:00 Furosemide 20 mg 20 mg DAILY IV Last administered on 12/06/16 09:03; Admin Dose 20 MG; Start 11/30/16 at 09:00 Dopamine HCl/ Dextrose 250 ml @ 7.298 mls/ hr TITRATE IV Last administered on 12/06/16 14:14; Admin Dose 7.298 MLS/HR; Start 12/06/16 at 13:30 Vancomycin HCl 250 ml @ 125 mls/hr Q8H IVPB Last administered on 12/07/16 06: 05; Admin Dose 125 MLS/HR; Start 12/06/16 at 22:00 Norepinephrine/ Dextrose (Levophed/D5W) 250 ml @ 0.46 mls/hr TITRATE IV ; Start 12/06/16 at 16:00 IV Flush (NS 10 ml) 10 ml PRN PRN IV IV PROTOCOL; Start 12/06/16 at 16:00 Pantoprazole (Protonix Iv) 40 mg DAILY@06 IV Last administered on 12/07/16 06: 45; Admin Dose 40 MG; Start 12/07/16 at 06:30 Dextrose (D50w Syringe) 25 ml Q15M PRN IV Till BS 80 mg/dL or above x2; Start 12/07/16 at 08:00 Dextrose 50 ml 50 ml Q15M PRN IV Till BS 80 mg/dL or above x2 Last administered on 12/07/16 07:45; Admin Dose 50 ML; Start 12/07/16 at 08:00 Dextrose/Sodium Chloride (D5-1/2ns) 1,000 ml @ 75 mls/hr [id number] IV ; Start at 10:30; Status GRISEL KENNEDY Dec 07, 2016 10:13
--- NOTE | 2016-12-07 10:26 | CONS ---
Date/Time of Note Date/Time of Note DATE: 12/07/16 TIME: 10:25 Assessment/Plan Assessment/Plan Additional Assessment/Plan Patient been transferred to the intensive care unit over the weekend and respiratory distress, on BiPAP 100%. There are no family members here. I have asked social work service to contact family members the phone numbers in patient 's medical chart are incorrect. I try to contact family with all 4 numbers. Consultation Date/Type/Reason Admit Date/Time Nov 28, 2016 at 18:48 Initial Consult Date 11/29/16 Type of Consultation: Palliative care Referring Provider: KATLYN RODRIGES Exam/Review of Systems Vital Signs Vitals Vital Signs Date Time Temp Pulse Resp B/P Pulse Ox O2 Delivery O2 Flow Rate FiO2 12/07/16 08:00 56 12/07/16 06:30 19 107/81 100 12/07/16 06:00 BIPAP 12/07/16 05:53 100 12/07/16 04:00 95.8 12/06/16 08:15 3.0 Intake and Output 12/06/16 12/06/16 12/07/16 15:00 23:00 07:00 Intake Total 1525 ml 1087.49 ml 1800.42 ml Output Total 575 ml 800 ml 605 ml Balance 950 ml 287.49 ml 1195.42 ml Results Result Diagram: 12/07/16 0410 12/07/16 0410 Results 24 hrs Laboratory Tests Test 12/06/16 14:40 12/06/16 14:45 12/06/16 15:38 12/06/16 16:00 B-Type Natriuretic Peptide 2010 H White Blood Count 1.0 #L Red Blood Count 3.62 L Hemoglobin 11.1 L Hematocrit 33.6 L Mean Corpuscular Volume 92.8 Mean Corpuscular Hemoglobin 30.7 Mean Corpuscular Hemoglobin Concent 33.0 Red Cell Distribution Width 14.6 H Platelet Count 36 L Mean Platelet Volume 12.9 H Neutrophils % Segmented Neutrophils % (Manual) 82 H Lymphocytes % Lymphocytes % (Manual) 5 L Monocytes % Monocytes % (Manual) 12 H Eosinophils % Eosinophils % (Manual) 1 Basophils % Nucleated Red Blood Cells % 0.0 Neutrophils # Absolute Lymphocytes (Manual) 0.0 L Lymphocytes # Monocytes # Absolute Monocytes (Manual) 0.1 L Eosinophils # Basophils # Nucleated Red Blood Cells # Thrombocytosis 4 H Platelet Estimate DECREASED Prothrombin Time 22.6 #H Prothrombin Time Ratio 1.8 INR International Normalized Ratio 1.97 Activated Partial Thromboplast Time 38.8 H Thrombin Time 18.0 Sodium Level 133 L Potassium Level 4.7 Chloride Level 105 Carbon Dioxide Level 26 Anion Gap 7 L Blood Urea Nitrogen 50 H Creatinine 0.75 Glucose Level 36 *L Lactic Acid Level 2.9 *H Calcium Level 7.1 L Magnesium Level 1.9 Creatine Kinase 275 H Creatine Kinase Index 1.1 Creatinine Kinase MB (Mass) 2.95 H Troponin I < 0.012 Bedside Glucose 437 *H 153 Test 12/06/16 16:45 12/06/16 20:00 12/07/16 00:01 12/07/16 02:00 Bedside Glucose 124 Lactic Acid Level 3.4 *H 2.0 Urine Color STRAW Urine Clarity CLEAR Urine pH 6.0 Urine Specific [place] 1.006 Urine Ketones NEGATIVE Urine Nitrite NEGATIVE Urine Bilirubin NEGATIVE Urine Urobilinogen NEGATIVE Urine Leukocyte Esterase NEGATIVE Urine Microscopic RBC 1 Urine Microscopic WBC 0 Urine Hemoglobin 2+ H Urine Glucose NEGATIVE Urine Total Protein NEGATIVE Test 12/07/16 04:10 12/07/16 05:21 12/07/16 07:00 12/07/16 08:15 White Blood Count 1.7 #L Red Blood Count 3.86 L Hemoglobin 11.6 L Hematocrit 34.9 L Mean Corpuscular Volume 90.4 Mean Corpuscular Hemoglobin 30.1 Mean Corpuscular Hemoglobin Concent 33.2 Red Cell Distribution Width 14.5 Platelet Count 20 #*L Mean Platelet Volume 13.3 H Neutrophils % Segmented Neutrophils % (Manual) 75 Band Neutrophils % (Manual) 14 H Lymphocytes % Lymphocytes % (Manual) 3 L Monocytes % Monocytes % (Manual) 4 Eosinophils % Basophils % Metamyelocytes % (manual) 4 H Myelocytes % (Manual) 1 H Nucleated Red Blood Cells % 0.0 Neutrophils # Neutrophils # (Manual) 1.3 L Band Neutrophils # 0.2 Absolute Lymphocytes (Manual) 0.0 L Lymphocytes # Monocytes # Absolute Monocytes (Manual) 0.0 L Eosinophils # Basophils # Metamyelocytes # 0.0 Myelocytes # 0.0 Nucleated Red Blood Cells # Thrombocytosis 9 H Platelet Estimate DECREASED Poikilocytosis 3+ Anisocytosis 1+ Macrocytosis 1+ Sodium Level 141 Potassium Level 4.3 Chloride Level 104 Carbon Dioxide Level 28 Anion Gap 13 Blood Urea Nitrogen 50 H Creatinine 0.59 L Glucose Level < 20 #*L Lactic Acid Level 1.7 Calcium Level 7.2 L Phosphorus Level 3.4 Magnesium Level 1.8 Troponin I 0.014 Lab Scanned Report BLOOD TRANSFUSION Blood Gas Specimen Source Blood arterial Arterial Blood Date Drawn 12/07/2016 7:50:43 AM Arterial Blood pH (Temp corrected) 7.447 Arterial Blood pCO2 (Temp correct) 32.9 L Arterial Blood pO2 (Temp corrected) 298.5 H Arterial Blood HCO3 22.2 Arterial Blood Base Excess -1.3 Arterial Blood Oxygen Saturation 99.1 H Nate Test ACCEPTAB Arterial Blood Gas Puncture Site Right Radial Arterial Blood Carboxyhemoglobin 0.2 Arterial Blood Methemoglobin 0.3 Blood Gas A-a O2 Differential 381.6 H Oxyhemoglobin Percent 98.6 Total Hemoglobin 10.9 L Blood Gas Temperature 37.0 Blood Gas Respiration Rate 12.0 Blood Gas Actual Respiration Rate 17 Blood Gas Modality MASK - BIPAP FiO2 100.0 Blood Gas IPAP/EPAP Ratio 16 Blood Gas Notified Whom JLD Blood Gas Notified Time 12/07/2016 8:29:21 AM Bedside Glucose 95 Medications Medications Current Medications Ondansetron HCl (Zofran Inj) 4 mg Q6H PRN IV NAUSEA AND/OR VOMITING Last administered on 11/30/16 09:29; Admin Dose 4 MG; Start 11/28/16 at 20:00 Acetaminophen (Tylenol Tab) 650 mg Q6H PRN PO PAIN LEVEL 1-3 OR FEVER; Start at 20:00 Docusate Sodium (Colace) 100 mg Q12H PRN PO CONSTIPATION; Start 11/28/16 at 20: 00 Magnesium Hydroxide (Milk Of Mag) 30 ml DAILY PRN PO CONSTIPATION; Start at 20:00 Sodium Biphosphate/ Sodium Phosphate (Fleet Enema) 133 ml DAILY PRN [place] CONSTIPATION; Start 11/28/16 at 20:00 Hydralazine HCl (Apresoline) 10 mg Q6H PRN IV SBP > 180; Start 11/28/16 at 20:00 Diphenoxylate HCl/ Atropine (Lomotil Liquid Cup) 5 ml Q6H PRN GTB DIARRHEA; Start 11/28/16 at 20:00 Loratadine (Claritin) 10 mg DAILY PO Last administered on 12/04/16 09:04; Admin Dose 10 MG; Start 11/29/16 at 09:00 Hydromorphone HCl (Dilaudid) 1 mg Q2H PRN IV PAIN LEVEL 1-3 Last administered on 12/06/16 20:47; Admin Dose 1 MG; Start 11/29/16 at 11:00 Dexamethasone (Decadron) 6 mg BID IV Last administered on 12/07/16 10:02; Admin Dose 6 MG; Start 11/29/16 at 21:00 Furosemide 20 mg 20 mg DAILY IV Last administered on 12/06/16 09:03; Admin Dose 20 MG; Start 11/30/16 at 09:00 Dopamine HCl/ Dextrose 250 ml @ 7.298 mls/ hr TITRATE IV Last administered on 12/06/16 14:14; Admin Dose 7.298 MLS/HR; Start 12/06/16 at 13:30 Vancomycin HCl 250 ml @ 125 mls/hr Q8H IVPB Last administered on 12/07/16 06: 05; Admin Dose 125 MLS/HR; Start 12/06/16 at 22:00 Norepinephrine/ Dextrose (Levophed/D5W) 250 ml @ 0.46 mls/hr TITRATE IV ; Start 12/06/16 at 16:00 IV Flush (NS 10 ml) 10 ml PRN PRN IV IV PROTOCOL; Start 12/06/16 at 16:00 Pantoprazole (Protonix Iv) 40 mg DAILY@06 IV Last administered on 12/07/16 06: 45; Admin Dose 40 MG; Start 12/07/16 at 06:30 Dextrose (D50w Syringe) 25 ml Q15M PRN IV Till BS 80 mg/dL or above x2; Start 12/07/16 at 08:00 Dextrose 50 ml 50 ml Q15M PRN IV Till BS 80 mg/dL or above x2 Last administered on 12/07/16 07:45; Admin Dose 50 ML; Start 12/07/16 at 08:00 Dextrose/Sodium Chloride (D5-1/2ns) 1,000 ml @ 75 mls/hr [id number] IV ; Start at 10:30; Stop 12/07/16 at 22:30 KEYONNA JAFFE Dec 07, 2016 10:26
[2016-12-07] MEDS ORDERED: DEXTROSE 5%-0.45% NACL 1,000 ML IV SCH (10:30)
[2016-12-07] MEDS: HYDROmorphONE 1 MG/ML SYG IV PRN ×3 (10:34→23:13)
--- NOTE | 2016-12-07 10:45 | CONS ---
Date/Time of Note Date/Time of Note DATE: 12/07/16 TIME: 10:42 Consult Date/Type/Reason Admit Date/Time Nov 28, 2016 at 18:48 Initial Consult Date 12/06/16 Type of Consultation: Pulmonary Ordering Provider: KATLYN RODRIGES Subjective Patient continues bilevel ventilation, arousable but significant neuromuscular weakness. Objective Vital Signs Date Time Temp Pulse Resp B/P Pulse Ox O2 Delivery O2 Flow Rate FiO2 12/07/16 08:00 56 12/07/16 06:30 19 107/81 100 12/07/16 06:00 BIPAP 12/07/16 05:53 100 12/07/16 04:00 95.8 12/06/16 08:15 3.0 Intake and Output 12/06/16 12/06/16 12/07/16 15:00 23:00 07:00 Intake Total 1525 ml 1087.49 ml 1800.42 ml Output Total 575 ml 800 ml 605 ml Balance 950 ml 287.49 ml 1195.42 ml Exam GENERAL: Thin cachectic gentleman on BiPAP. VITAL SIGNS: per chart NECK: Supple. No JVD or lymphadenopathy. CARDIAC EXAM: S1, S2. No added sounds or murmurs. CHEST: clear bilaterally, No added sounds, rales or wheezes ABDOMEN: Soft, nontender. No guarding or rebound. EXTREMITIES: No cyanosis, clubbing or edema. NEUROLOGIC: Generalized weakness. No focal deficits. Results/Medications Result Diagram: 12/07/16 0410 12/07/16 0410 Results 24 hrs Laboratory Tests Test 12/06/16 14:40 12/06/16 14:45 12/06/16 15:38 12/06/16 16:00 B-Type Natriuretic Peptide 2010 H White Blood Count 1.0 #L Red Blood Count 3.62 L Hemoglobin 11.1 L Hematocrit 33.6 L Mean Corpuscular Volume 92.8 Mean Corpuscular Hemoglobin 30.7 Mean Corpuscular Hemoglobin Concent 33.0 Red Cell Distribution Width 14.6 H Platelet Count 36 L Mean Platelet Volume 12.9 H Neutrophils % Segmented Neutrophils % (Manual) 82 H Lymphocytes % Lymphocytes % (Manual) 5 L Monocytes % Monocytes % (Manual) 12 H Eosinophils % Eosinophils % (Manual) 1 Basophils % Nucleated Red Blood Cells % 0.0 Neutrophils # Absolute Lymphocytes (Manual) 0.0 L Lymphocytes # Monocytes # Absolute Monocytes (Manual) 0.1 L Eosinophils # Basophils # Nucleated Red Blood Cells # Thrombocytosis 4 H Platelet Estimate DECREASED Prothrombin Time 22.6 #H Prothrombin Time Ratio 1.8 INR International Normalized Ratio 1.97 Activated Partial Thromboplast Time 38.8 H Thrombin Time 18.0 Sodium Level 133 L Potassium Level 4.7 Chloride Level 105 Carbon Dioxide Level 26 Anion Gap 7 L Blood Urea Nitrogen 50 H Creatinine 0.75 Glucose Level 36 *L Lactic Acid Level 2.9 *H Calcium Level 7.1 L Magnesium Level 1.9 Creatine Kinase 275 H Creatine Kinase Index 1.1 Creatinine Kinase MB (Mass) 2.95 H Troponin I < 0.012 Bedside Glucose 437 *H 153 Test 12/06/16 16:45 12/06/16 20:00 12/07/16 00:01 12/07/16 02:00 Bedside Glucose 124 Lactic Acid Level 3.4 *H 2.0 Urine Color STRAW Urine Clarity CLEAR Urine pH 6.0 Urine Specific [place] 1.006 Urine Ketones NEGATIVE Urine Nitrite NEGATIVE Urine Bilirubin NEGATIVE Urine Urobilinogen NEGATIVE Urine Leukocyte Esterase NEGATIVE Urine Microscopic RBC 1 Urine Microscopic WBC 0 Urine Hemoglobin 2+ H Urine Glucose NEGATIVE Urine Total Protein NEGATIVE Test 12/07/16 04:10 12/07/16 05:21 12/07/16 07:00 12/07/16 08:15 White Blood Count 1.7 #L Red Blood Count 3.86 L Hemoglobin 11.6 L Hematocrit 34.9 L Mean Corpuscular Volume 90.4 Mean Corpuscular Hemoglobin 30.1 Mean Corpuscular Hemoglobin Concent 33.2 Red Cell Distribution Width 14.5 Platelet Count 20 #*L Mean Platelet Volume 13.3 H Neutrophils % Segmented Neutrophils % (Manual) 75 Band Neutrophils % (Manual) 14 H Lymphocytes % Lymphocytes % (Manual) 3 L Monocytes % Monocytes % (Manual) 4 Eosinophils % Basophils % Metamyelocytes % (manual) 4 H Myelocytes % (Manual) 1 H Nucleated Red Blood Cells % 0.0 Neutrophils # Neutrophils # (Manual) 1.3 L Band Neutrophils # 0.2 Absolute Lymphocytes (Manual) 0.0 L Lymphocytes # Monocytes # Absolute Monocytes (Manual) 0.0 L Eosinophils # Basophils # Metamyelocytes # 0.0 Myelocytes # 0.0 Nucleated Red Blood Cells # Thrombocytosis 9 H Platelet Estimate DECREASED Poikilocytosis 3+ Anisocytosis 1+ Macrocytosis 1+ Sodium Level 141 Potassium Level 4.3 Chloride Level 104 Carbon Dioxide Level 28 Anion Gap 13 Blood Urea Nitrogen 50 H Creatinine 0.59 L Glucose Level < 20 #*L Lactic Acid Level 1.7 Calcium Level 7.2 L Phosphorus Level 3.4 Magnesium Level 1.8 Troponin I 0.014 Lab Scanned Report BLOOD TRANSFUSION Blood Gas Specimen Source Blood arterial Arterial Blood Date Drawn 12/07/2016 7:50:43 AM Arterial Blood pH (Temp corrected) 7.447 Arterial Blood pCO2 (Temp correct) 32.9 L Arterial Blood pO2 (Temp corrected) 298.5 H Arterial Blood HCO3 22.2 Arterial Blood Base Excess -1.3 Arterial Blood Oxygen Saturation 99.1 H Nate Test ACCEPTAB Arterial Blood Gas Puncture Site Right Radial Arterial Blood Carboxyhemoglobin 0.2 Arterial Blood Methemoglobin 0.3 Blood Gas A-a O2 Differential 381.6 H Oxyhemoglobin Percent 98.6 Total Hemoglobin 10.9 L Blood Gas Temperature 37.0 Blood Gas Respiration Rate 12.0 Blood Gas Actual Respiration Rate 17 Blood Gas Modality MASK - BIPAP FiO2 100.0 Blood Gas IPAP/EPAP Ratio 08/09 Blood Gas Notified Whom JLD Blood Gas Notified Time 12/07/2016 8:29:21 AM Bedside Glucose 95 Medications Current Medications Ondansetron HCl (Zofran Inj) 4 mg Q6H PRN IV NAUSEA AND/OR VOMITING Last administered on 11/30/16t 09:29; Admin Dose 4 MG; Start 11/28/16 at 20:00 Acetaminophen (Tylenol Tab) 650 mg Q6H PRN PO PAIN LEVEL 1-3 OR FEVER; Start at 20:00 Docusate Sodium (Colace) 100 mg Q12H PRN PO CONSTIPATION; Start 11/28/16 at 20: 00 Magnesium Hydroxide (Milk Of Mag) 30 ml DAILY PRN PO CONSTIPATION; Start at 20:00 Sodium Biphosphate/ Sodium Phosphate (Fleet Enema) 133 ml DAILY PRN SD CONSTIPATION; Start 11/28/16 at 20:00 Hydralazine HCl (Apresoline) 10 mg Q6H PRN IV SBP > 180; Start 11/28/16 at 20:00 Diphenoxylate HCl/ Atropine (Lomotil Liquid Cup) 5 ml Q6H PRN GTB DIARRHEA; Start 11/28/16 at 20:00 Loratadine (Claritin) 10 mg DAILY PO Last administered on 12/04/16 09:04; Admin Dose 10 MG; Start 11/29/16 at 09:00 Hydromorphone HCl (Dilaudid) 1 mg Q2H PRN IV PAIN LEVEL 1-3 Last administered on 12/07/16 10:34; Admin Dose 1 MG; Start 11/29/16 at 11:00 Dexamethasone (Decadron) 6 mg BID IV Last administered on 12/07/16 10:02; Admin Dose 6 MG; Start 11/29/16 at 21:00 Furosemide 20 mg 20 mg DAILY IV Last administered on 12/06/16 09:03; Admin Dose 20 MG; Start 11/30/16 at 09:00 Dopamine HCl/ Dextrose 250 ml @ 7.298 mls/ hr TITRATE IV Last administered on 12/06/16 14:14; Admin Dose 7.298 MLS/HR; Start 12/06/16 at 13:30 Vancomycin HCl 250 ml @ 125 mls/hr Q8H IVPB Last administered on 12/07/16 06: 05; Admin Dose 125 MLS/HR; Start 12/06/16 at 22:00 Norepinephrine/ Dextrose (Levophed/D5W) 250 ml @ 0.46 mls/hr TITRATE IV ; Start 12/06/16 at 16:00 IV Flush (NS 10 ml) 10 ml PRN PRN IV IV PROTOCOL; Start 12/06/16 at 16:00 Pantoprazole (Protonix Iv) 40 mg DAILY@06 IV Last administered on 12/07/16 06: 45; Admin Dose 40 MG; Start 12/07/16 at 06:30 Dextrose (D50w Syringe) 25 ml Q15M PRN IV Till BS 80 mg/dL or above x2; Start 12/07/16 at 08:00 Dextrose 50 ml 50 ml Q15M PRN IV Till BS 80 mg/dL or above x2 Last administered on 12/07/16 07:45; Admin Dose 50 ML; Start 12/07/16 at 08:00 Dextrose/Sodium Chloride (D5-1/2ns) 1,000 ml @ 75 mls/hr [id number] IV Last administered on 12/07/16 10:40; Admin Dose 75 MLS/HR; Start 12/07/16 at 10:30; Stop 12/07/16 at 22:30 Assessment/Plan Chief Complaint/Hosp Course Assessment 1. Hypoxemic respiratory failure likely secondary to combination of healthcare associated pneumonia with likely underlying severe COPD. Possible component of aspiration also. 2. Advanced pancreatic cancer with a history of Whipple's resection. 3. Failure to thrive with progressive cachexia. 4. Neutropenia and thrombocytopenia Plan 1. Continue ICU monitoring 2. I have attempted to contact patient's next of kin per chart who is by the name of Genny. Unsuccessfully. 3. Continue broad-spectrum antibiotics, BiPAP, IV fluids. May require vasopressors. 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 Palliative care recommendations, overall prognosis very poor Overall prognosis is very poor should consider changing CODE STATUS and possible switch to palliative care. Problems: SORAIDA GRIGGS MD, [facility] Dec 07, 2016 10:44
[2016-12-07 11:02] LABS: PLATELET COUNT 24 10^3/UL (140-415)
[2016-12-07 11:07] LABS: INR 2.19; PROTIME 24.6 Sec (12.2-14.2); PT RATIO 1.9
[2016-12-07 11:08] LABS: FIBRIN SPLIT PRODUCT >10 and <40 ug/ml (<10); PARTIAL THROMBOPLASTIN TIME 40.8 Sec (25.0-35.0)
[2016-12-07 11:09] LABS: THROMBIN TIME 16.3 SEC (13.8-19.1)
[2016-12-07 11:56] LABS: D-DIMER 8336.45 ng/ml (<460)
[2016-12-07] MEDS: FUROSEMIDE 20 MG INJ IV SCH (14:11)
[2016-12-07] MEDS: TPN 1,000 ML IV SCH (14:15)
--- NOTE | 2016-12-07 14:15 | CONS ---
Date/Time of Note Date/Time of Note DATE: 12/07/16 TIME: 14:14 Assessment/Plan Assessment/Plan Additional Assessment/Plan Update on family conference to be done tomorrow at 1530 hrs. Consultation Date/Type/Reason Admit Date/Time Nov 28, 2016 at 18:48 Initial Consult Date 11/29/16 Type of Consultation: Palliative care Referring Provider: KATLYN RODRIGES Exam/Review of Systems Vital Signs Vitals Vital Signs Date Time Temp Pulse Resp B/P Pulse Ox O2 Delivery O2 Flow Rate FiO2 12/07/16 12:00 95 12/07/16 06:30 19 107/81 100 12/07/16 06:00 BIPAP 12/07/16 05:53 100 12/07/16 04:00 95.8 12/06/16 08:15 3.0 Intake and Output 12/06/16 12/06/16 12/07/16 15:00 23:00 07:00 Intake Total 1525 ml 1087.49 ml 1800.42 ml Output Total 575 ml 800 ml 605 ml Balance 950 ml 287.49 ml 1195.42 ml Results Result Diagram: 12/07/16 1027 12/07/16 0410 Results 24 hrs Laboratory Tests Test 12/06/16 14:40 12/06/16 14:45 12/06/16 15:38 12/06/16 16:00 B-Type Natriuretic Peptide 2010 H White Blood Count 1.0 #L Red Blood Count 3.62 L Hemoglobin 11.1 L Hematocrit 33.6 L Mean Corpuscular Volume 92.8 Mean Corpuscular Hemoglobin 30.7 Mean Corpuscular Hemoglobin Concent 33.0 Red Cell Distribution Width 14.6 H Platelet Count 36 L Mean Platelet Volume 12.9 H Neutrophils % Segmented Neutrophils % (Manual) 82 H Lymphocytes % Lymphocytes % (Manual) 5 L Monocytes % Monocytes % (Manual) 12 H Eosinophils % Eosinophils % (Manual) 1 Basophils % Nucleated Red Blood Cells % 0.0 Neutrophils # Absolute Lymphocytes (Manual) 0.0 L Lymphocytes # Monocytes # Absolute Monocytes (Manual) 0.1 L Eosinophils # Basophils # Nucleated Red Blood Cells # Thrombocytosis 4 H Platelet Estimate DECREASED Prothrombin Time 22.6 #H Prothrombin Time Ratio 1.8 INR International Normalized Ratio 1.97 Activated Partial Thromboplast Time 38.8 H Thrombin Time 18.0 Sodium Level 133 L Potassium Level 4.7 Chloride Level 105 Carbon Dioxide Level 26 Anion Gap 7 L Blood Urea Nitrogen 50 H Creatinine 0.75 Glucose Level 36 *L Lactic Acid Level 2.9 *H Calcium Level 7.1 L Magnesium Level 1.9 Creatine Kinase 275 H Creatine Kinase Index 1.1 Creatinine Kinase MB (Mass) 2.95 H Troponin I < 0.012 Bedside Glucose 437 *H 153 Test 12/06/16 16:45 12/06/16 20:00 12/07/16 00:01 12/07/16 02:00 Bedside Glucose 124 Lactic Acid Level 3.4 *H 2.0 Urine Color STRAW Urine Clarity CLEAR Urine pH 6.0 Urine Specific [place] 1.006 Urine Ketones NEGATIVE Urine Nitrite NEGATIVE Urine Bilirubin NEGATIVE Urine Urobilinogen NEGATIVE Urine Leukocyte Esterase NEGATIVE Urine Microscopic RBC 1 Urine Microscopic WBC 0 Urine Hemoglobin 2+ H Urine Glucose NEGATIVE Urine Total Protein NEGATIVE Test 12/07/16 04:10 12/07/16 05:21 12/07/16 07:00 12/07/16 08:15 White Blood Count 1.7 #L Red Blood Count 3.86 L Hemoglobin 11.6 L Hematocrit 34.9 L Mean Corpuscular Volume 90.4 Mean Corpuscular Hemoglobin 30.1 Mean Corpuscular Hemoglobin Concent 33.2 Red Cell Distribution Width 14.5 Platelet Count 20 #*L Mean Platelet Volume 13.3 H Neutrophils % Segmented Neutrophils % (Manual) 75 Band Neutrophils % (Manual) 14 H Lymphocytes % Lymphocytes % (Manual) 3 L Monocytes % Monocytes % (Manual) 4 Eosinophils % Basophils % Metamyelocytes % (manual) 4 H Myelocytes % (Manual) 1 H Nucleated Red Blood Cells % 0.0 Neutrophils # Neutrophils # (Manual) 1.3 L Band Neutrophils # 0.2 Absolute Lymphocytes (Manual) 0.0 L Lymphocytes # Monocytes # Absolute Monocytes (Manual) 0.0 L Eosinophils # Basophils # Metamyelocytes # 0.0 Myelocytes # 0.0 Nucleated Red Blood Cells # Thrombocytosis 9 H Platelet Estimate DECREASED Poikilocytosis 3+ Anisocytosis 1+ Macrocytosis 1+ Sodium Level 141 Potassium Level 4.3 Chloride Level 104 Carbon Dioxide Level 28 Anion Gap 13 Blood Urea Nitrogen 50 H Creatinine 0.59 L Glucose Level < 20 #*L Lactic Acid Level 1.7 Calcium Level 7.2 L Phosphorus Level 3.4 Magnesium Level 1.8 Troponin I 0.014 Lab Scanned Report BLOOD TRANSFUSION Blood Gas Specimen Source Blood arterial Arterial Blood Date Drawn 12/07/2016 7:50:43 AM Arterial Blood pH (Temp corrected) 7.447 Arterial Blood pCO2 (Temp correct) 32.9 L Arterial Blood pO2 (Temp corrected) 298.5 H Arterial Blood HCO3 22.2 Arterial Blood Base Excess -1.3 Arterial Blood Oxygen Saturation 99.1 H Nate Test ACCEPTAB Arterial Blood Gas Puncture Site Right Radial Arterial Blood Carboxyhemoglobin 0.2 Arterial Blood Methemoglobin 0.3 Blood Gas A-a O2 Differential 381.6 H Oxyhemoglobin Percent 98.6 Total Hemoglobin 10.9 L Blood Gas Temperature 37.0 Blood Gas Respiration Rate 12.0 Blood Gas Actual Respiration Rate 17 Blood Gas Modality MASK - BIPAP FiO2 100.0 Blood Gas IPAP/EPAP Ratio 16 Blood Gas Notified Whom JLD Blood Gas Notified Time 12/07/2016 8:29:21 AM Bedside Glucose 95 Test 12/07/16 10:27 12/07/16 13:23 Platelet Count 24 *L Prothrombin Time 24.6 H Prothrombin Time Ratio 1.9 INR International Normalized Ratio 2.19 Activated Partial Thromboplast Time 40.8 H Thrombin Time 16.3 Fibrinogen 301.0 Plasma Fibrin Degradation Products >10 and <40 H D-Dimer 8336.45 H D-Dimer Comment Bedside Glucose 19 *L Medications Medications Current Medications Ondansetron HCl (Zofran Inj) 4 mg Q6H PRN IV NAUSEA AND/OR VOMITING Last administered on 11/30/16t 09:29; Admin Dose 4 MG; Start 11/28/16 at 20:00 Acetaminophen (Tylenol Tab) 650 mg Q6H PRN PO PAIN LEVEL 1-3 OR FEVER; Start at 20:00 Docusate Sodium (Colace) 100 mg Q12H PRN PO CONSTIPATION; Start 11/28/16 at 20: 00 Magnesium Hydroxide (Milk Of Mag) 30 ml DAILY PRN PO CONSTIPATION; Start at 20:00 Sodium Biphosphate/ Sodium Phosphate (Fleet Enema) [address] CONSTIPATION; Start 11/28/16 at 20:00 Hydralazine HCl (Apresoline) 10 mg Q6H PRN IV SBP > 180; Start 11/28/16 at 20:00 Diphenoxylate HCl/ Atropine (Lomotil Liquid Cup) 5 ml Q6H PRN GTB DIARRHEA; Start 11/28/16 at 20:00 Loratadine (Claritin) 10 mg DAILY PO Last administered on 12/04/16 09:04; Admin Dose 10 MG; Start 11/29/16 at 09:00 Hydromorphone HCl (Dilaudid) 1 mg Q2H PRN IV PAIN LEVEL 1-3 Last administered on 12/07/16 10:34; Admin Dose 1 MG; Start 11/29/16 at 11:00 Dexamethasone (Decadron) 6 mg BID IV Last administered on 12/07/16 10:02; Admin Dose 6 MG; Start 11/29/16 at 21:00 Furosemide 20 mg 20 mg DAILY IV Last administered on 12/06/16 09:03; Admin Dose 20 MG; Start 11/30/16 at 09:00 Dopamine HCl/ Dextrose 250 ml @ 7.298 mls/ hr TITRATE IV Last administered on 12/06/16 14:14; Admin Dose 7.298 MLS/HR; Start 12/06/16 at 13:30 Vancomycin HCl 250 ml @ 125 mls/hr Q8H IVPB Last administered on 12/07/16 06: 05; Admin Dose 125 MLS/HR; Start 12/06/16 at 22:00 Norepinephrine/ Dextrose (Levophed/D5W) 250 ml @ 0.46 mls/hr TITRATE IV ; Start 12/06/16 at 16:00 IV Flush (NS 10 ml) 10 ml PRN PRN IV IV PROTOCOL; Start 12/06/16 at 16:00 Dextrose (D50w Syringe) 25 ml Q15M PRN IV Till BS 80 mg/dL or above x2; Start 12/07/16 at 08:00 Dextrose 50 ml 50 ml Q15M PRN IV Till BS 80 mg/dL or above x2 Last administered on 12/07/16 13:28; Admin Dose 50 ML; Start 12/07/16 at 08:00 Dextrose/Sodium Chloride 1,000 ml @ 75 mls/hr [id number] IV Last administered on 12/07/16 10:40; Admin Dose 75 MLS/HR; Start 12/07/16 at 10:30; Stop 12/07/16 at 22:30 Total Parenteral Nutrition (Tpn) 1,000 ml @ 40 mls/hr Q24H IV ; Start 12/07/16 at 11:30 Famotidine (Pepcid Iv) 20 mg BID IV ; Start 12/08/16 at 09:00 Diagnostic Test (Pha) (Accu-Chek) 1 ea Q6 XX ; Start 12/07/16 at 18:00; Stop at 12:01 Diagnostic Test (Pha) (Accu-Chek) 1 ea Q12 XX ; Start 12/08/16 at 21:00 Miscellaneous Information (*Rx Drug Level Order Reminder*) VANCOMYCIN TROUGH AT 2100 ONCE ONCE XX ; Start 12/07/16 at 21:00; Stop 12/07/16 at 21:01 KEYONNA JAFFE Dec 07, 2016 14:15
[2016-12-07] MEDS: ACCU-CHEK XX SCH ×2 (18:43→23:59)
--- NOTE | 2016-12-07 19:29 | RADRPT ---
Vent Rate: 69 bpm RR Interval: 0 msec NM Interval: 124 msec QRS Duration: 88 msec QT Interval: 474 msec QTC Interval: 507 msec P-R-T [place]: 44 - 63 - 62 degrees Normal sinus rhythm Low voltage QRS Septal infarct , age undetermined Prolonged QT Abnormal ECG Electronically Signed By: Vadim Rivas [id number]
[2016-12-07] MEDS: DOPamine-D5W 1.6 MG/ML 250 ML IV SCH (20:03)
[2016-12-08] VITALS (103 sets, daily range): BP systolic 76–137; BP diastolic 43–106; PULSE 95–141; RESP 14–39
[2016-12-08] MEDS: HYDROmorphONE 1 MG/ML SYG IV PRN ×4 (04:58→21:14)
[2016-12-08] MEDS: ACCU-CHEK XX SCH ×3 (06:13→21:22)
[2016-12-08 06:19] LABS: ABNORMAL IP MESSAGE 1; HEMATOCRIT 33.1 % (42.0-52.0); HEMOGLOBIN 11.2 g/dl (14.0-18.0); MEAN CORPUSCULAR HGB CONC 33.8 g/dl (32.0-37.0); MEAN CORPUSCULAR VOLUME 91.7 fl (82.0-101.0); MEAN PLATELET VOLUME 13.8 fl (7.4-10.4); PLATELET COUNT 82 10^3/UL (140-415); POSITIVE DIFF @See below; RED BLOOD COUNT 3.61 10^6/ul (4.70-6.10); RED CELL DISTRIBUTION WIDTH 14.6 % (11.5-14.5); WHITE BLOOD COUNT 12.3 10^3/ul (4.8-10.8)
[2016-12-08 06:49] LABS: CALCIUM 7.5 mg/dl (8.4-10.2); CREATININE 0.7 mg/dl (0.61-1.24); POTASSIUM 4.6 mmol/L (3.5-5.1)
[2016-12-08 07:43] LABS: AADO2 Arterial 357.2 mmHg (7.0-24.0); Allen Test ACCEPTAB; Arterial Base Excess -2.1 mmol/L (-3.0-3); Arterial COHb 0.2 % (0.0-3.0); Arterial Fraction of Oxyhgb 98.2 % (93.0-99.0); Arterial HCO3 20.4 mmol/L (22.0-26.0); Arterial MetHb 0.2 % (0.0-1.5); Arterial Total Hemglobin 12.2 g/dl (12.0-18.0); Blood Gas IEPAP 16/5; MODE MASK - BIPAP
--- NOTE | 2016-12-08 08:05 | RADRPT ---
PROCEDURE: XR Chest. CLINICAL INDICATION: pna chf TECHNIQUE: Single frontal view of the chest was obtained COMPARISON: Chest x-ray 12/06/2016 FINDINGS: Right chest port with tip in in the right atrium is stable in position. Right PICC line with tip projecting over the cavoatrial junction region is stable. The cardiac silhouette is within normal limits in size. Atherosclerotic calcifications of the aorta are redemonstrated. There is persistent mild elevation of the right hemidiaphragm. The previously seen diffuse bilateral opacities are slightly decreased and less confluent compared t o prior study, likely reflecting decreased pulmonary edema. No pneumothorax or pleural effusion is identified. There are mild degenerative changes of the visualized spine. IMPRESSION: 1. Stable right port and right PICC lines. 2. Interval slight decrease in diffuse bilateral pulmonary edema. 3. Thoracic aortic atherosclerotic disease. RPTAT: EE Physician Cash Date Time Electronically viewed and signed by Physician Cash on 12/08/2016 08:05 WILNER/
[2016-12-08] MEDS: LORATADINE 10 MG TAB PO SCH (08:33)
[2016-12-08] MEDS: DOPamine-D5W 1.6 MG/ML 250 ML IV SCH (08:43)
[2016-12-08] MEDS: DEXAMETHASONE 4 MG/ML 1 ML INJ IV SCH ×2 (08:51→21:13)
[2016-12-08] MEDS: FUROSEMIDE 20 MG INJ IV SCH (08:51)
[2016-12-08] MEDS: FAMOTIDINE 20 MG INJ IV SCH ×2 (08:58→21:13)
[2016-12-08 09:08] LABS: ACANTHOCYTES 1+ (0-0); ANISOCYTOSIS 1+ (0-0); EOSINOPHILS % (M) 1 % (0-7); GIANT THROMBO% (M) 6 % (0-0); METAMYELOCYTES %M 4 % (0-0); MONOCYTES % (M) 7 % (0-11); MYELOCYTES % (M) 1 % (0.0-0.0); PLATELET ESTIMATE DECREASED; POIKILOCYTOSIS 1+ (0-0); TOXIC GRANULATION 1+ (0-0)
[2016-12-08] MEDS: ALBUTEROL/IPRATROPIUM (NEB) 3 ML AMP HHN SCH ×4 (09:27→20:10)
--- NOTE | 2016-12-08 10:04 | CONS ---
Date/Time of Note Date/Time of Note DATE: 12/08/16 TIME: 10:02 Assessment/Plan Assessment/Plan Additional Assessment/Plan Chest x-ray was reviewed from today which is showing improvement in bilateral pulmonary edema as well as bilateral pneumonia. Next Patient currently on BiPAP 16/5, 70% FiO2. Patient on dopamine drip at 5 mics per kilogram per minute. Assessment and recommendations; 1. Patient admitted with hypoxemic respiratory failure with hypercapnia likely from underlying COPD. 2. Bilateral pneumonia. With interval improvement. 3. Advanced pancreatic cancer, status post Whipple's procedure. Status post large-volume paracentesis on 6 of this month. 4. Severe emaciation. 5. Improving leukopenia as well as improving thrombocytopenia. Continue current treatment. Hospice should be considered. Consultation Date/Type/Reason Admit Date/Time Nov 28, 2016 at 18:48 Initial Consult Date 12/06/16 Type of Consultation: Pulmonary/critical care Referring Provider: KATLYN RODRIGES 24 HR Interval Summary Free Text/Dictation Patient's condition remains tenuous at best. Requiring continuous BiPAP. Patient however remains awake and alert. Denies any shortness of breath, abdominal pain, vomiting. General exam; elderly male, emaciated, currently in no distress. Awake and alert. Exam/Review of Systems Vital Signs Vitals Vital Signs Date Time Temp Pulse Resp B/P Pulse Ox O2 Delivery O2 Flow Rate FiO2 12/08/16 08:30 122 31 105/88 100 BIPAP 12/08/16 08:00 97.7 12/08/16 05:10 80 12/06/16 08:15 3.0 Intake and Output 12/07/16 12/07/16 12/08/16 15:00 23:00 07:00 Intake Total 550 ml 880.38 ml 470.44 ml Output Total 450 ml 850 ml 710 ml Balance 100 ml 30.38 ml -239.56 ml Exam HEENT exam; supple neck, no JVD. No lymphadenopathy. Midline trachea. No thyromegaly. Patient has multiple carious teeth. Currently on full face BiPAP. Chest exam; diminished but clear breath sounds. S1-S2 audible, no murmurs. Regular rhythm. Abdomen exam; soft, there is a well-healed laparotomy scar. Abdomen is scaphoid , nontender. Bowel sounds audible. Next Extremity exam; no peripheral edema. There is severe muscular atrophy involving the entire body. 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 Results Result Diagram: 12/08/16 0455 12/08/16 0455 Results 24 hrs Laboratory Tests Test 12/07/16 10:27 12/07/16 13:23 12/07/16 14:23 12/07/16 18:29 Platelet Count 24 *L Prothrombin Time 24.6 H Prothrombin Time Ratio 1.9 INR International Normalized Ratio 2.19 Activated Partial Thromboplast Time 40.8 H Thrombin Time 16.3 Fibrinogen 301.0 Plasma Fibrin Degradation Products >10 and <40 H D-Dimer 8336.45 H D-Dimer Comment Bedside Glucose 19 *L 82 48 *L Test 12/07/16 19:19 12/07/16 21:03 12/07/16 23:53 12/08/16 04:55 Bedside Glucose 145 131 Vancomycin Level Trough 46.8 *H White Blood Count 12.3 #H Red Blood Count 3.61 L Hemoglobin 11.2 L Hematocrit 33.1 L Mean Corpuscular Volume 91.7 Mean Corpuscular Hemoglobin 31.0 Mean Corpuscular Hemoglobin Concent 33.8 Red Cell Distribution Width 14.6 H Platelet Count 82 #L Mean Platelet Volume 13.8 H Neutrophils % Segmented Neutrophils % (Manual) 62 Band Neutrophils % (Manual) 24 H Lymphocytes % Monocytes % Monocytes % (Manual) 7 Eosinophils % Eosinophils % (Manual) 1 Basophils % Metamyelocytes % (manual) 4 H Myelocytes % (Manual) 1 H Nucleated Red Blood Cells % 0.0 Neutrophils # (Manual) 8.0 H Band Neutrophils # 2.9 H Lymphocytes # Monocytes # Absolute Monocytes (Manual) 0.8 Eosinophils # Basophils # Metamyelocytes # 0.4 H Myelocytes # 0.1 H Nucleated Red Blood Cells # Thrombocytosis 6 H Toxic Granulation 1+ Platelet Estimate DECREASED Poikilocytosis 1+ Anisocytosis 1+ Macrocytosis 1+ Acanthocytes 1+ Sodium Level 136 Potassium Level 4.6 Chloride Level 101 Carbon Dioxide Level 24 Anion Gap 16 Blood Urea Nitrogen 54 H Creatinine 0.70 Glucose Level 287 #H Calcium Level 7.5 L Test 12/08/16 05:33 12/08/16 06:12 12/08/16 07:00 12/08/16 08:10 Lab Scanned Report BLOOD TRANSFUSION Bedside Glucose 159 Blood Gas Specimen Source Blood arterial Arterial Blood Date Drawn 12/08/2016 7:30:26 AM Arterial Blood pH (Temp corrected) 7.473 H Arterial Blood pCO2 (Temp correct) 28.5 L Arterial Blood pO2 (Temp corrected) 183.3 H Arterial Blood HCO3 20.4 L Arterial Blood Base Excess -2.1 Arterial Blood Oxygen Saturation 98.6 H Nate Test ACCEPTAB Arterial Blood Gas Puncture Site Right Radial Arterial Blood Carboxyhemoglobin 0.2 Arterial Blood Methemoglobin 0.2 Blood Gas A-a O2 Differential 357.2 H Oxyhemoglobin Percent 98.2 Total Hemoglobin 12.2 Blood Gas Temperature 37.0 Blood Gas Respiration Rate 12.0 Blood Gas Actual Respiration Rate 26 Blood Gas Modality MASK - BIPAP FiO2 80.0 Blood Gas IPAP/EPAP Ratio 16/5 Blood Gas Notified Whom JLD Blood Gas Notified Time 12/08/2016 7:43:04 AM Random Vancomycin Level 32.4 Medications Medications Current Medications Ondansetron HCl (Zofran Inj) 4 mg Q6H PRN IV NAUSEA AND/OR VOMITING Last administered on 11/30/16 09:29; Admin Dose 4 MG; Start 11/28/16 at 20:00 Acetaminophen (Tylenol Tab) 650 mg Q6H PRN PO PAIN LEVEL 1-3 OR FEVER; Start at 20:00 Docusate Sodium (Colace) 100 mg Q12H PRN PO CONSTIPATION; Start 11/28/16 at 20: 00 Magnesium Hydroxide (Milk Of Mag) 30 ml DAILY PRN PO CONSTIPATION; Start at 20:00 Sodium Biphosphate/ Sodium Phosphate (Fleet Enema) 133 ml DAILY PRN [place] CONSTIPATION; Start 11/28/16 at 20:00 Hydralazine HCl (Apresoline) 10 mg Q6H PRN IV SBP > 180; Start 11/28/16 at 20:00 Diphenoxylate HCl/ Atropine (Lomotil Liquid Cup) 5 ml Q6H PRN GTB DIARRHEA; Start 11/28/16 at 20:00 Loratadine (Claritin) 10 mg DAILY PO Last administered on 12/04/16 09:04; Admin Dose 10 MG; Start 11/29/16 at 09:00 Hydromorphone HCl (Dilaudid) 1 mg Q2H PRN IV PAIN LEVEL 1-3 Last administered on 12/08/16 09:28; Admin Dose 1 MG; Start 11/29/16 at 11:00 Dexamethasone (Decadron) 6 mg BID IV Last administered on 12/08/16 08:51; Admin Dose 6 MG; Start 11/29/16 at 21:00 Furosemide 20 mg 20 mg DAILY IV Last administered on 12/08/16 08:51; Admin Dose 20 MG; Start 11/30/16 at 09:00 Norepinephrine/ Dextrose (Levophed/D5W) 250 ml @ 0.46 mls/hr TITRATE IV ; Start 12/06/16 at 16:00 IV Flush (NS 10 ml) 10 ml PRN PRN IV IV PROTOCOL; Start 12/06/16 at 16:00 Dextrose (D50w Syringe) 25 ml Q15M PRN IV Till BS 80 mg/dL or above x2; Start 12/07/16 at 08:00 Dextrose 50 ml 50 ml Q15M PRN IV Till BS 80 mg/dL or above x2 Last administered on 12/07/16 18:37; Admin Dose 50 ML; Start 12/07/16 at 08:00 Total Parenteral Nutrition (Tpn) 1,000 ml @ 40 mls/hr Q24H IV Last administered on 12/07/16 14:15; Admin Dose 40 MLS/HR; Start 12/07/16 at 11:30 Famotidine (Pepcid Iv) 20 mg BID IV Last administered on 12/08/16 08:58; Admin Dose 20 MG; Start 12/08/16 at 09:00 Diagnostic Test (Pha) (Accu-Chek) 1 ea Q6 XX Last administered on 12/08/16 06: 13; Admin Dose 1 EA; Start 12/07/16 at 18:00; Stop 12/08/16 at 12:01 Diagnostic Test (Pha) 1 ea 1 ea Q12 XX ; Start 12/08/16 at 21:00 Dopamine HCl/ Dextrose 250 ml @ 3.788 mls/ hr TITRATE IV Last administered on 12/08/16 08:43; Admin Dose 9.469 MLS/HR; Start 12/08/16 at 08:40 PEPITO AUGUSTE Dec 08, 2016 10:04
[2016-12-08] MEDS: TPN 1,000 ML IV SCH (11:08)
--- NOTE | 2016-12-08 15:31 | PN ---
Date/Time of Note Date/Time of Note DATE: 12/08/16 TIME: 15:29 Assessment/Plan VTE Prophylaxis VTE Prophylaxis Intervention: SCD's Assessment/Plan Chief Complaint/Hosp Course 1. Acute hypoxic respiratory failure. Etiology could be multifactorial including underlying aspiration and infectious process. Patient currently on noninvasive positive pressure ventilation. Pulmonology consult has been obtained. - continue inhaled bronchodilators. Patient may eventually need intubation. 2. End-stage pancreatic cancer. Not a Candidate for chemotherapy or other therapies. Family refusing any hospice at this time. - continue pain control meds, IV steroids for now - add D5 1/2 NS x 12 hrs for low sugars today 3. Cachexia. Secondary to underlying advanced pancreatic cancer. - continue n.p.o. because of worsening respiratory distress. - palliative care on case 4. Shock. Etiology unclear. Possible underlying sepsis. - continue IV pressors to maintain appropriate blood pressure readings. 5. Pancytopenia. Most probably secondary to underlying malignant process. - will order DIC panel, and d/c heparin and zosyn (low plts) - plt ordered today as well. 6. Coagulopathy - f/u DIC panel 7. Dysphagia. Status post evaluation by speech therapy. The patient is not a candidate for any oral intake at least for a time being. 8. Fluids, electrolytes, and nutrition. N.p.o. 9. DVT prophylaxis. SCD's 10. Gastrointestinal prophylaxis. Proton pump inhibitors. Extensive discussion was done with the patient's over the weekend apparently regarding the reversibility of the patient's condition, the very poor prognosis, and the need for a life support including mechanical ventilation. Nevertheless, the patient's wants to talk to the family before making a decision on CODE STATUS. The patient remains to be full code at this time. Problems: Subjective 24 Hr Interval Summary Subjective hx not possible: pt non-verbal Exam/Review of Systems Vital Signs Vitals Vital Signs Date Time Temp Pulse Resp B/P Pulse Ox O2 Delivery O2 Flow Rate FiO2 12/08/16 15:15 112 18 108/88 100 Mask 8.0 12/08/16 12:00 97.6 12/08/16 11:20 60 Intake and Output 12/07/16 12/07/16 12/08/16 15:00 23:00 07:00 Intake Total 550 ml 880.38 ml 470.44 ml Output Total 450 ml 850 ml 710 ml Balance 100 ml 30.38 ml -239.56 ml Exam Constitutional: non-verbal Respiratory: clear to auscultation Cardiovascular: regular rate and rhythm Gastrointestinal: soft, No distended Musculoskeletal: nl extremities to inspection Results Result Diagram: 12/08/16 0455 12/08/16 0455 Results 24 hrs Laboratory Tests Test 12/07/16 18:29 12/07/16 19:19 12/07/16 21:03 12/07/16 23:53 Bedside Glucose 48 *L 145 131 Vancomycin Level Trough 46.8 *H Test 12/08/16 04:55 12/08/16 05:33 12/08/16 06:12 12/08/16 07:00 White Blood Count 12.3 #H Red Blood Count 3.61 L Hemoglobin 11.2 L Hematocrit 33.1 L Mean Corpuscular Volume 91.7 Mean Corpuscular Hemoglobin 31.0 Mean Corpuscular Hemoglobin Concent 33.8 Red Cell Distribution Width 14.6 H Platelet Count 82 #L Mean Platelet Volume 13.8 H Neutrophils % Segmented Neutrophils % (Manual) 62 Band Neutrophils % (Manual) 24 H Lymphocytes % Monocytes % Monocytes % (Manual) 7 Eosinophils % Eosinophils % (Manual) 1 Basophils % Metamyelocytes % (manual) 4 H Myelocytes % (Manual) 1 H Nucleated Red Blood Cells % 0.0 Neutrophils # (Manual) 8.0 H Band Neutrophils # 2.9 H Lymphocytes # Monocytes # Absolute Monocytes (Manual) 0.8 Eosinophils # Basophils # Metamyelocytes # 0.4 H Myelocytes # 0.1 H Nucleated Red Blood Cells # Thrombocytosis 6 H Toxic Granulation 1+ Platelet Estimate DECREASED Poikilocytosis 1+ Anisocytosis 1+ Macrocytosis 1+ Acanthocytes 1+ Sodium Level 136 Potassium Level 4.6 Chloride Level 101 Carbon Dioxide Level 24 Anion Gap 16 Blood Urea Nitrogen 54 H Creatinine 0.70 Glucose Level 287 #H Calcium Level 7.5 L Lab Scanned Report BLOOD TRANSFUSION Bedside Glucose 159 Blood Gas Specimen Source Blood arterial Arterial Blood Date Drawn 12/08/2016 7:30:26 AM Arterial Blood pH (Temp corrected) 7.473 H Arterial Blood pCO2 (Temp correct) 28.5 L Arterial Blood pO2 (Temp corrected) 183.3 H Arterial Blood HCO3 20.4 L Arterial Blood Base Excess -2.1 Arterial Blood Oxygen Saturation 98.6 H Nate Test ACCEPTAB Arterial Blood Gas Puncture Site Right Radial Arterial Blood Carboxyhemoglobin 0.2 Arterial Blood Methemoglobin 0.2 Blood Gas A-a O2 Differential 357.2 H Oxyhemoglobin Percent 98.2 Total Hemoglobin 12.2 Blood Gas Temperature 37.0 Blood Gas Respiration Rate 12.0 Blood Gas Actual Respiration Rate 26 Blood Gas Modality MASK - BIPAP FiO2 80.0 Blood Gas IPAP/EPAP Ratio 16/5 Blood Gas Notified Whom JLD Blood Gas Notified Time 12/08/2016 7:43:04 AM Test 12/08/16 08:10 12/08/16 11:13 Random Vancomycin Level 32.4 Bedside Glucose 102 Medications Medications Current Medications Ondansetron HCl (Zofran Inj) 4 mg Q6H PRN IV NAUSEA AND/OR VOMITING Last administered on 11/30/16 09:29; Admin Dose 4 MG; Start 11/28/16 at 20:00 Acetaminophen (Tylenol Tab) 650 mg Q6H PRN PO PAIN LEVEL 1-3 OR FEVER; Start at 20:00 Docusate Sodium (Colace) 100 mg Q12H PRN PO CONSTIPATION; Start 11/28/16 at 20: 00 Magnesium Hydroxide (Milk Of Mag) 30 ml DAILY PRN PO CONSTIPATION; Start at 20:00 Sodium Biphosphate/ Sodium Phosphate (Fleet Enema) 133 ml DAILY PRN [place] CONSTIPATION; Start 11/28/16 at 20:00 Hydralazine HCl (Apresoline) 10 mg Q6H PRN IV SBP > 180; Start 11/28/16 at 20:00 Diphenoxylate HCl/ Atropine (Lomotil Liquid Cup) 5 ml Q6H PRN GTB DIARRHEA; Start 11/28/16 at 20:00 Loratadine (Claritin) 10 mg DAILY PO Last administered on 12/04/16 09:04; Admin Dose 10 MG; Start 11/29/16 at 09:00 Hydromorphone HCl (Dilaudid) 1 mg Q2H PRN IV PAIN LEVEL 1-3 Last administered on 12/08/16 13:44; Admin Dose 1 MG; Start 11/29/16 at 11:00 Dexamethasone (Decadron) 6 mg BID IV Last administered on 12/08/16 08:51; Admin Dose 6 MG; Start 11/29/16 at 21:00 Furosemide 20 mg 20 mg DAILY IV Last administered on 12/08/16 08:51; Admin Dose 20 MG; Start 11/30/16 at 09:00 Norepinephrine/ Dextrose (Levophed/D5W) 250 ml @ 0.46 mls/hr TITRATE IV ; Start 12/06/16 at 16:00 IV Flush (NS 10 ml) 10 ml PRN PRN IV IV PROTOCOL; Start 12/06/16 at 16:00 Dextrose (D50w Syringe) 25 ml Q15M PRN IV Till BS 80 mg/dL or above x2; Start 12/07/16 at 08:00 Dextrose 50 ml 50 ml Q15M PRN IV Till BS 80 mg/dL or above x2 Last administered on 12/07/16 18:37; Admin Dose 50 ML; Start 12/07/16 at 08:00 Total Parenteral Nutrition (Tpn) 1,000 ml @ 40 mls/hr Q24H IV Last administered on 12/08/16 11:08; Admin Dose 40 MLS/HR; Start 12/07/16 at 11:30 Famotidine (Pepcid Iv) 20 mg BID IV Last administered on 12/08/16 08:58; Admin Dose 20 MG; Start 12/08/16 at 09:00 Diagnostic Test (Pha) 1 ea 1 ea Q12 XX ; Start 12/08/16 at 21:00 Dopamine HCl/ Dextrose 250 ml @ 3.788 mls/ hr TITRATE IV Last administered on 12/08/16 08:43; Admin Dose 9.469 MLS/HR; Start 12/08/16 at 08:40 Miscellaneous Information (*Rx Drug Level Order Reminder*) 1 ONCE ONCE XX ; Start 12/09/16 at 05:00; Stop 12/09/16 at 05:01 KATLYN RODRIGES Dec 08, 2016 15:31
[2016-12-08] MEDS: HYPROMELLOSE 0.5% 15 ML OPH BOTH EYES SCH ×2 (17:30→21:13)
--- NOTE | 2016-12-08 17:30 | CONS ---
Date/Time of Note Date/Time of Note DATE: 12/08/16 TIME: 17:22 Assessment/Plan Assessment/Plan Additional Assessment/Plan Patient's CODE STATUS has been changed to DO NOT RESUSCITATE. Issue that were discussed including patient hopes that he does not suffer, and that he is able to take some p.o. intake. Had a long discussion fact that patient will of his underlying malignancy. Covered his strength hopes desires and family's caregiver concerns. Family members agree to hospice general inpatient care consultation. Goals of care have been discussed that is once again to keep him comfortable. Palliative performance scale is less than 10%. Recommendations are GIP hospice consultation continue close relationship with him supportive care for family and patient. Consultation Date/Type/Reason Admit Date/Time Nov 28, 2016 at 18:48 Initial Consult Date 11/29/16 Type of Consultation: Pulmonary/critical care Referring Provider: KATLYN RODRIGES Exam/Review of Systems Vital Signs Vitals Vital Signs Date Time Temp Pulse Resp B/P Pulse Ox O2 Delivery O2 Flow Rate FiO2 12/08/16 17:00 125 23 94/81 95 BIPAP 12/08/16 16:15 8.0 12/08/16 16:00 97.0 12/08/16 11:20 60 Intake and Output 12/07/16 12/07/16 12/08/16 15:00 23:00 07:00 Intake Total 550 ml 880.38 ml 470.44 ml Output Total 450 ml 850 ml 710 ml Balance 100 ml 30.38 ml -239.56 ml Results Result Diagram: 12/08/16 0455 12/08/16 0455 Results 24 hrs Laboratory Tests Test 12/07/16 18:29 12/07/16 19:19 12/07/16 21:03 12/07/16 23:53 Bedside Glucose 48 *L 145 131 Vancomycin Level Trough 46.8 *H Test 12/08/16 04:55 12/08/16 05:33 12/08/16 06:12 12/08/16 07:00 White Blood Count 12.3 #H Red Blood Count 3.61 L Hemoglobin 11.2 L Hematocrit 33.1 L Mean Corpuscular Volume 91.7 Mean Corpuscular Hemoglobin 31.0 Mean Corpuscular Hemoglobin Concent 33.8 Red Cell Distribution Width 14.6 H Platelet Count 82 #L Mean Platelet Volume 13.8 H Neutrophils % Segmented Neutrophils % (Manual) 62 Band Neutrophils % (Manual) 24 H Lymphocytes % Monocytes % Monocytes % (Manual) 7 Eosinophils % Eosinophils % (Manual) 1 Basophils % Metamyelocytes % (manual) 4 H Myelocytes % (Manual) 1 H Nucleated Red Blood Cells % 0.0 Neutrophils # (Manual) 8.0 H Band Neutrophils # 2.9 H Lymphocytes # Monocytes # Absolute Monocytes (Manual) 0.8 Eosinophils # Basophils # Metamyelocytes # 0.4 H Myelocytes # 0.1 H Nucleated Red Blood Cells # Thrombocytosis 6 H Toxic Granulation 1+ Platelet Estimate DECREASED Poikilocytosis 1+ Anisocytosis 1+ Macrocytosis 1+ Acanthocytes 1+ Sodium Level 136 Potassium Level 4.6 Chloride Level 101 Carbon Dioxide Level 24 Anion Gap 16 Blood Urea Nitrogen 54 H Creatinine 0.70 Glucose Level 287 #H Calcium Level 7.5 L Lab Scanned Report BLOOD TRANSFUSION Bedside Glucose 159 Blood Gas Specimen Source Blood arterial Arterial Blood Date Drawn 12/08/2016 7:30:26 AM Arterial Blood pH (Temp corrected) 7.473 H Arterial Blood pCO2 (Temp correct) 28.5 L Arterial Blood pO2 (Temp corrected) 183.3 H Arterial Blood HCO3 20.4 L Arterial Blood Base Excess -2.1 Arterial Blood Oxygen Saturation 98.6 H Nate Test ACCEPTAB Arterial Blood Gas Puncture Site Right Radial Arterial Blood Carboxyhemoglobin 0.2 Arterial Blood Methemoglobin 0.2 Blood Gas A-a O2 Differential 357.2 H Oxyhemoglobin Percent 98.2 Total Hemoglobin 12.2 Blood Gas Temperature 37.0 Blood Gas Respiration Rate 12.0 Blood Gas Actual Respiration Rate 26 Blood Gas Modality MASK - BIPAP FiO2 80.0 Blood Gas IPAP/EPAP Ratio 16/ Blood Gas Notified Whom JLD Blood Gas Notified Time 12/08/2016 7:43:04 AM Test 12/08/16 08:10 12/08/16 11:13 Random Vancomycin Level 32.4 Bedside Glucose 102 Medications Medications Current Medications Ondansetron HCl (Zofran Inj) 4 mg Q6H PRN IV NAUSEA AND/OR VOMITING Last administered on 11/30/16t 09:29; Admin Dose 4 MG; Start 11/28/16 at 20:00 Acetaminophen (Tylenol Tab) 650 mg Q6H PRN PO PAIN LEVEL 1-3 OR FEVER; Start at 20:00 Docusate Sodium (Colace) 100 mg Q12H PRN PO CONSTIPATION; Start 11/28/16 at 20: 00 Magnesium Hydroxide (Milk Of Mag) 30 ml DAILY PRN PO CONSTIPATION; Start at 20:00 Sodium Biphosphate/ Sodium Phosphate (Fleet Enema) 133 ml DAILY PRN [place] CONSTIPATION; Start 11/28/16 at 20:00 Hydralazine HCl (Apresoline) 10 mg Q6H PRN IV SBP > 180; Start 11/28/16 at 20:00 Diphenoxylate HCl/ Atropine (Lomotil Liquid Cup) 5 ml Q6H PRN GTB DIARRHEA; Start 11/28/16 at 20:00 Loratadine (Claritin) 10 mg DAILY PO Last administered on 12/04/16 09:04; Admin Dose 10 MG; Start 11/29/16 at 09:00 Hydromorphone HCl (Dilaudid) 1 mg Q2H PRN IV PAIN LEVEL 1-3 Last administered on 12/08/16 13:44; Admin Dose 1 MG; Start 11/29/16 at 11:00 Dexamethasone (Decadron) 6 mg BID IV Last administered on 12/08/16 08:51; Admin Dose 6 MG; Start 11/29/16 at 21:00 Furosemide 20 mg 20 mg DAILY IV Last administered on 12/08/16 08:51; Admin Dose 20 MG; Start 11/30/16 at 09:00 Norepinephrine/ Dextrose (Levophed/D5W) 250 ml @ 0.46 mls/hr TITRATE IV ; Start 12/06/16 at 16:00 IV Flush (NS 10 ml) 10 ml PRN PRN IV IV PROTOCOL; Start 12/06/16 at 16:00 Dextrose (D50w Syringe) 25 ml Q15M PRN IV Till BS 80 mg/dL or above x2; Start 12/07/16 at 08:00 Dextrose 50 ml 50 ml Q15M PRN IV Till BS 80 mg/dL or above x2 Last administered on 12/07/16 18:37; Admin Dose 50 ML; Start 12/07/16 at 08:00 Total Parenteral Nutrition (Tpn) 1,000 ml @ 40 mls/hr Q24H IV Last administered on 12/08/16 11:08; Admin Dose 40 MLS/HR; Start 12/07/16 at 11:30 Famotidine (Pepcid Iv) 20 mg BID IV Last administered on 12/08/16 08:58; Admin Dose 20 MG; Start 12/08/16 at 09:00 Diagnostic Test (Pha) 1 ea 1 ea Q12 XX ; Start 12/08/16 at 21:00 Dopamine HCl/ Dextrose 250 ml @ 3.788 mls/ hr TITRATE IV Last administered on 12/08/16 08:43; Admin Dose 9.469 MLS/HR; Start 12/08/16 at 08:40 Miscellaneous Information (*Rx Drug Level Order Reminder*) 1 ONCE ONCE XX ; Start 12/09/16 at 05:00; Stop 12/09/16 at 05:01 Hypromellose (Isopto Tears) 2 drop TID BOTH EYES ; Start 12/08/16 at 17:30; Status UNV KEYONNA JAFFE Dec 08, 2016 17:30
[2016-12-09] VITALS (89 sets, daily range): BP systolic 83–140; BP diastolic 72–108; PULSE 89–129; RESP 13–29
[2016-12-09] MEDS: DOPamine-D5W 1.6 MG/ML 250 ML IV SCH (00:31)
[2016-12-09] MEDS: HYDROmorphONE 1 MG/ML SYG IV PRN ×2 (05:08→14:00)
[2016-12-09 05:43] LABS: ABNORMAL IP MESSAGE 1; HEMOGLOBIN 11.5 g/dl (14.0-18.0); MEAN CORPUSCULAR HEMOGLOBIN 30.2 pg (29.0-33.0); MEAN CORPUSCULAR HGB CONC 33.8 g/dl (32.0-37.0); MEAN CORPUSCULAR VOLUME 89.2 fl (82.0-101.0); MEAN PLATELET VOLUME 13.8 fl (7.4-10.4); PLATELET COUNT 48 10^3/UL (140-415); POSITIVE DIFF @See below; RED BLOOD COUNT 3.81 10^6/ul (4.70-6.10); RED CELL DISTRIBUTION WIDTH 14.7 % (11.5-14.5); WHITE BLOOD COUNT 16.4 10^3/ul (4.8-10.8)
[2016-12-09 06:05] LABS: CALCIUM 7.9 mg/dl (8.4-10.2); CREATININE 0.74 mg/dl (0.61-1.24)
[2016-12-09] MEDS: ALBUTEROL/IPRATROPIUM (NEB) 3 ML AMP HHN SCH ×4 (08:12→21:50)
[2016-12-09] MEDS: HYPROMELLOSE 0.5% 15 ML OPH BOTH EYES SCH ×3 (08:47→20:31)
[2016-12-09] MEDS: LORATADINE 10 MG TAB PO SCH ×2 (08:48→08:55)
[2016-12-09] MEDS: DEXAMETHASONE 4 MG/ML 1 ML INJ IV SCH ×2 (08:48→20:30)
[2016-12-09] MEDS: FAMOTIDINE 20 MG INJ IV SCH ×2 (08:48→20:30)
[2016-12-09] MEDS: ACCU-CHEK XX SCH ×2 (08:51→20:38)
--- NOTE | 2016-12-09 09:06 | CONS ---
Date/Time of Note Date/Time of Note DATE: 12/09/16 TIME: 09:03 Assessment/Plan Assessment/Plan Additional Assessment/Plan Patient is less responsive today compared to yesterday. He is not complaining of pain. Code was changed yesterday to DO NOT RESUSCITATE and plans are to have a inpatient hospice evaluation today. Family are now realistic that he will not survive primarily want to make sure he does not suffer. They continue to maintain some hope that his overall quality of life will improve, we will support them. Suggest minimal diagnostic tests no procedures but laboratories as per primary care medical team. Consultation Date/Type/Reason Admit Date/Time Nov 28, 2016 at 18:48 Initial Consult Date 11/29/16 Type of Consultation: Palliative care Referring Provider: KATLYN RODRIGES Exam/Review of Systems Vital Signs Vitals Vital Signs Date Time Temp Pulse Resp B/P Pulse Ox O2 Delivery O2 Flow Rate FiO2 12/09/16 08:30 112 19 104/88 97 12/09/16 08:12 Simple Mask 10.0 12/09/16 08:00 97.5 12/09/16 01:29 50 Intake and Output 12/08/16 12/08/16 12/09/16 15:00 23:00 07:00 Intake Total 400.736 ml 387.420 ml 443.814 ml Output Total 835 ml 310 ml 290 ml Balance -434.264 ml 77.420 ml 153.814 ml Exam Respiratory: diminished breath sounds Cardiovascular: No S3, No S4, No bruits, No diastolic murmur, No edema, No gallop, No irregular rhythm, No jugular venous distention (JVD), No murmurs/ extra sounds, No nl pulses, No other, No regular rate and rhythm, No rub, No systolic murmur Neurological: other (Minimally responsive, lethargic, does not follow simple commands,) Results Result Diagram: 12/09/16 0500 12/09/16 0500 Results 24 hrs Laboratory Tests Test 12/08/16 11:13 12/08/16 21:22 12/09/16 05:00 12/09/16 08:50 Bedside Glucose 102 86 93 White Blood Count 16.4 #H Red Blood Count 3.81 L Hemoglobin 11.5 L Hematocrit 34.0 L Mean Corpuscular Volume 89.2 Mean Corpuscular Hemoglobin 30.2 Mean Corpuscular Hemoglobin Concent 33.8 Red Cell Distribution Width 14.7 H Platelet Count 48 #L Mean Platelet Volume 13.8 H Neutrophils % Lymphocytes % Monocytes % Eosinophils % Basophils % Nucleated Red Blood Cells % 0.0 Neutrophils # (Manual) 16.1 H Lymphocytes # Monocytes # Eosinophils # Basophils # Nucleated Red Blood Cells # Sodium Level 142 Potassium Level 4.0 Chloride Level 103 Carbon Dioxide Level 26 Anion Gap 17 H Blood Urea Nitrogen 75 H Creatinine 0.74 Glucose Level 80 # Calcium Level 7.9 L Random Vancomycin Level 22.2 Medications Medications Current Medications Ondansetron HCl (Zofran Inj) 4 mg Q6H PRN IV NAUSEA AND/OR VOMITING Last administered on 11/30/16 09:29; Admin Dose 4 MG; Start 11/28/16 at 20:00 Acetaminophen (Tylenol Tab) 650 mg Q6H PRN PO PAIN LEVEL 1-3 OR FEVER; Start at 20:00 Docusate Sodium (Colace) 100 mg Q12H PRN PO CONSTIPATION; Start 11/28/16 at 20: 00 Magnesium Hydroxide (Milk Of Mag) 30 ml DAILY PRN PO CONSTIPATION; Start at 20:00 Sodium Biphosphate/ Sodium Phosphate (Fleet Enema) 133 ml DAILY PRN [place] CONSTIPATION; Start 11/28/16 at 20:00 Hydralazine HCl (Apresoline) 10 mg Q6H PRN IV SBP > 180; Start 11/28/16 at 20:00 Diphenoxylate HCl/ Atropine (Lomotil Liquid Cup) 5 ml Q6H PRN GTB DIARRHEA; Start 11/28/16 at 20:00 Loratadine (Claritin) 10 mg DAILY PO Last administered on 12/04/16 09:04; Admin Dose 10 MG; Start 11/29/16 at 09:00 Hydromorphone HCl (Dilaudid) 1 mg Q2H PRN IV PAIN LEVEL 1-3 Last administered on 12/09/16 05:08; Admin Dose 1 MG; Start 11/29/16 at 11:00 Dexamethasone (Decadron) 6 mg BID IV Last administered on 12/09/16 08:48; Admin Dose 6 MG; Start 11/29/16 at 21:00 Furosemide 20 mg 20 mg DAILY IV Last administered on 12/08/16 08:51; Admin Dose 20 MG; Start 11/30/16 at 09:00 Norepinephrine/ Dextrose (Levophed/D5W) 250 ml @ 0.46 mls/hr TITRATE IV ; Start 12/06/16 at 16:00 IV Flush (NS 10 ml) 10 ml PRN PRN IV IV PROTOCOL; Start 12/06/16 at 16:00 Dextrose (D50w Syringe) 25 ml Q15M PRN IV Till BS 80 mg/dL or above x2; Start 12/07/16 at 08:00 Dextrose 50 ml 50 ml Q15M PRN IV Till BS 80 mg/dL or above x2 Last administered on 12/07/16 18:37; Admin Dose 50 ML; Start 12/07/16 at 08:00 Total Parenteral Nutrition (Tpn) 1,000 ml @ 40 mls/hr Q24H IV Last administered on 12/08/16 11:08; Admin Dose 40 MLS/HR; Start 12/07/16 at 11:30 Famotidine (Pepcid Iv) 20 mg BID IV Last administered on 12/09/16 08:48; Admin Dose 20 MG; Start 12/08/16 at 09:00 Diagnostic Test (Pha) 1 ea 1 ea Q12 XX Last administered on 12/09/16 08:51; Admin Dose 1 EA; Start 12/08/16 at 21:00 Dopamine HCl/ Dextrose 250 ml @ 3.788 mls/ hr TITRATE IV Last administered on 12/09/16 00:31; Admin Dose 9.469 MLS/HR; Start 12/08/16 at 08:40 Hypromellose 2 drop 2 drop TID BOTH EYES Last administered on 12/09/16 08:47; Admin Dose 2 DROP; Start 12/08/16 at 17:30 Vancomycin HCl/ Sodium Chloride (Vancocin/NS) 150 ml @ 75 mls/hr Q24H IVPB ; Start 12/10/16 at 12:00 KEYONNA JAFFE Dec 09, 2016 09:06
[2016-12-09 09:24] LABS: ANISOCYTOSIS 1+ (0-0); BURR CELLS 2+ (0-0); EOSINOPHILS % (M) 1 % (0-7); GIANT THROMBO% (M) 4 % (0-0); PLATELET ESTIMATE SIG DECREASED; POIKILOCYTOSIS 3+ (0-0)
--- NOTE | 2016-12-09 11:16 | CONS ---
Date/Time of Note Date/Time of Note DATE: 12/09/16 TIME: 11:14 Consult Date/Type/Reason Admit Date/Time Nov 28, 2016 at 18:48 Initial Consult Date 12/06/16 Type of Consultation: Pulmonary Ordering Provider: KATLYN RODRIGES Subjective Patient continues facemask O2. Overall looks slightly better. Objective Vital Signs Date Time Temp Pulse Resp B/P Pulse Ox O2 Delivery O2 Flow Rate FiO2 12/09/16 10:46 99 6.0 12/09/16 10:30 107 13 97/82 12/09/16 10:00 Mask 12/09/16 08:00 97.5 12/09/16 01:29 50 Intake and Output 12/08/16 12/08/16 12/09/16 15:00 23:00 07:00 Intake Total 400.736 ml 387.420 ml 493.274 ml Output Total 835 ml 310 ml 330 ml Balance -434.264 ml 77.420 ml 163.274 ml Exam GENERAL: Chronically ill-appearing [place] gentleman. Ventimask oxygen VITAL SIGNS: per chart NECK: Supple. No JVD or lymphadenopathy. CARDIAC EXAM: S1, S2. No added sounds or murmurs. CHEST: clear bilaterally, No added sounds, rales or wheezes ABDOMEN: Soft, nontender. No guarding or rebound. EXTREMITIES: No cyanosis, clubbing edema +2 NEUROLOGIC: Generalized weakness. Results/Medications Result Diagram: 12/09/16 0500 12/09/16 0500 Results 24 hrs Laboratory Tests Test 12/08/16 21:22 12/09/16 05:00 12/09/16 08:50 Bedside Glucose 86 93 White Blood Count 16.4 #H Red Blood Count 3.81 L Hemoglobin 11.5 L Hematocrit 34.0 L Mean Corpuscular Volume 89.2 Mean Corpuscular Hemoglobin 30.2 Mean Corpuscular Hemoglobin Concent 33.8 Red Cell Distribution Width 14.7 H Platelet Count 48 #L Mean Platelet Volume 13.8 H Neutrophils % Segmented Neutrophils % (Manual) 89 H Band Neutrophils % (Manual) 10 H Lymphocytes % Lymphocytes % (Manual) 1 L Monocytes % Eosinophils % Eosinophils % (Manual) 1 Basophils % Nucleated Red Blood Cells % 0.0 Neutrophils # (Manual) 14.9 H Band Neutrophils # 1.6 H Absolute Lymphocytes (Manual) 0.1 L Lymphocytes # Monocytes # Eosinophils # Basophils # Nucleated Red Blood Cells # Thrombocytosis 4 H Platelet Estimate SIG DECREASED Poikilocytosis 3+ Anisocytosis 1+ Macrocytosis 1+ Sodium Level 142 Potassium Level 4.0 Chloride Level 103 Carbon Dioxide Level 26 Anion Gap 17 H Blood Urea Nitrogen 75 H Creatinine 0.74 Glucose Level 80 # Calcium Level 7.9 L Random Vancomycin Level 22.2 Medications Current Medications Ondansetron HCl (Zofran Inj) 4 mg Q6H PRN IV NAUSEA AND/OR VOMITING Last administered on 11/30/16 09:29; Admin Dose 4 MG; Start 11/28/16 at 20:00 Acetaminophen (Tylenol Tab) 650 mg Q6H PRN PO PAIN LEVEL 1-3 OR FEVER; Start at 20:00 Docusate Sodium (Colace) 100 mg Q12H PRN PO CONSTIPATION; Start 11/28/16 at 20: 00 Magnesium Hydroxide (Milk Of Mag) 30 ml DAILY PRN PO CONSTIPATION; Start at 20:00 Sodium Biphosphate/ Sodium Phosphate (Fleet Enema) 133 ml DAILY PRN [place] CONSTIPATION; Start 11/28/16 at 20:00 Hydralazine HCl (Apresoline) 10 mg Q6H PRN IV SBP > 180; Start 11/28/16 at 20:00 Diphenoxylate HCl/ Atropine (Lomotil Liquid Cup) 5 ml Q6H PRN GTB DIARRHEA; Start 11/28/16 at 20:00 Loratadine (Claritin) 10 mg DAILY PO Last administered on 12/04/16 09:04; Admin Dose 10 MG; Start 11/29/16 at 09:00 Hydromorphone HCl (Dilaudid) 1 mg Q2H PRN IV PAIN LEVEL 1-3 Last administered on 12/09/16 05:08; Admin Dose 1 MG; Start 11/29/16 at 11:00 Dexamethasone (Decadron) 6 mg BID IV Last administered on 12/09/16 08:48; Admin Dose 6 MG; Start 11/29/16 at 21:00 Furosemide 20 mg 20 mg DAILY IV Last administered on 12/08/16 08:51; Admin Dose 20 MG; Start 11/30/16 at 09:00 Norepinephrine/ Dextrose (Levophed/D5W) 250 ml @ 0.46 mls/hr TITRATE IV ; Start 12/06/16 at 16:00 IV Flush (NS 10 ml) 10 ml PRN PRN IV IV PROTOCOL; Start 12/06/16 at 16:00 Dextrose (D50w Syringe) 25 ml Q15M PRN IV Till BS 80 mg/dL or above x2; Start 12/07/16 at 08:00 Dextrose 50 ml 50 ml Q15M PRN IV Till BS 80 mg/dL or above x2 Last administered on 12/07/16 18:37; Admin Dose 50 ML; Start 12/07/16 at 08:00 Total Parenteral Nutrition (Tpn) 1,000 ml @ 40 mls/hr Q24H IV Last administered on 12/08/16 11:08; Admin Dose 40 MLS/HR; Start 12/07/16 at 11:30 Famotidine (Pepcid Iv) 20 mg BID IV Last administered on 12/09/16 08:48; Admin Dose 20 MG; Start 12/08/16 at 09:00 Diagnostic Test (Pha) 1 ea 1 ea Q12 XX Last administered on 12/09/16 08:51; Admin Dose 1 EA; Start 12/08/16 at 21:00 Dopamine HCl/ Dextrose 250 ml @ 3.788 mls/ hr TITRATE IV Last administered on 12/09/16 00:31; Admin Dose 9.469 MLS/HR; Start 12/08/16 at 08:40 Hypromellose 2 drop 2 drop TID BOTH EYES Last administered on 12/09/16 08:47; Admin Dose 2 DROP; Start 12/08/16 at 17:30 Vancomycin HCl/ Sodium Chloride (Vancocin/NS) 150 ml @ 75 mls/hr Q24H IVPB ; Start 12/10/16 at 12:00 Assessment/Plan Chief Complaint/Hosp Course Assessment 1. Hypoxemic respiratory failure likely secondary to combination of healthcare associated pneumonia with likely underlying severe COPD. Possible component of aspiration also. 2. Advanced metastatic pancreatic cancer with a history of Whipple's resection. 3. Failure to thrive with progressive cachexia. 4. Severe sepsis Plan 1. Continue ICU monitoring 2. Active care recommendations discussed with staff patient considering admission to inpatient hospice today 3. Continue broad-spectrum antibiotics, supplemental O2 and IV fluids for now. Agree with palliative care approach. Problems: SORAIDA GRIGGS MD, [facility] Dec 09, 2016 11:15
[2016-12-09] MEDS: TPN 1,000 ML IV SCH (11:49)
[2016-12-09] MEDS: FUROSEMIDE 20 MG INJ IV SCH (13:33)
--- NOTE | 2016-12-09 19:16 | PN ---
Date/Time of Note Date/Time of Note DATE: 12/09/16 TIME: 19:15 Assessment/Plan VTE Prophylaxis VTE Prophylaxis Intervention: SCD's Assessment/Plan Chief Complaint/Hosp Course 1. Acute hypoxic respiratory failure. Etiology could be multifactorial including underlying aspiration and infectious process. Patient currently on noninvasive positive pressure ventilation. Pulmonology consult has been obtained. - continue inhaled bronchodilators. Patient may eventually need intubation. 2. End-stage pancreatic cancer. Not a Candidate for chemotherapy or other therapies. Family refusing any hospice at this time. - continue pain control meds, IV steroids for now - add D5 1/2 NS x 12 hrs for low sugars today 3. Cachexia. Secondary to underlying advanced pancreatic cancer. - continue n.p.o. because of worsening respiratory distress. - palliative care on case 4. Shock. Etiology unclear. Possible underlying sepsis. - continue IV pressors to maintain appropriate blood pressure readings. 5. Pancytopenia. Most probably secondary to underlying malignant process. - will order DIC panel, and d/c heparin and zosyn (low plts) - plt ordered today as well. 6. Coagulopathy - f/u DIC panel 7. Dysphagia. Status post evaluation by speech therapy. The patient is not a candidate for any oral intake at least for a time being. 8. Fluids, electrolytes, and nutrition. N.p.o. 9. DVT prophylaxis. SCD's 10. Gastrointestinal prophylaxis. Proton pump inhibitors. Likely DC to [facility] for inpatient hospice in 1-2 days Problems: Subjective 24 Hr Interval Summary Subjective hx not possible: pt non-verbal Exam/Review of Systems Vital Signs Vitals Vital Signs Date Time Temp Pulse Resp B/P Pulse Ox O2 Delivery O2 Flow Rate FiO2 12/09/16 18:30 119 20 100/76 98 Nasal Cannula 4.0 12/09/16 16:00 97.2 12/09/16 01:29 50 Intake and Output 12/08/16 12/08/16 12/09/16 15:00 23:00 07:00 Intake Total 400.736 ml 387.420 ml 493.274 ml Output Total 835 ml 310 ml 330 ml Balance -434.264 ml 77.420 ml 163.274 ml Exam Constitutional: non-verbal Respiratory: clear to auscultation Cardiovascular: regular rate and rhythm Gastrointestinal: soft, No distended Musculoskeletal: nl extremities to inspection Results Result Diagram: 12/09/16 0500 12/09/16 0500 Results 24 hrs Laboratory Tests Test 12/08/16 21:22 12/09/16 05:00 12/09/16 08:50 Bedside Glucose 86 93 White Blood Count 16.4 #H Red Blood Count 3.81 L Hemoglobin 11.5 L Hematocrit 34.0 L Mean Corpuscular Volume 89.2 Mean Corpuscular Hemoglobin 30.2 Mean Corpuscular Hemoglobin Concent 33.8 Red Cell Distribution Width 14.7 H Platelet Count 48 #L Mean Platelet Volume 13.8 H Neutrophils % Segmented Neutrophils % (Manual) 89 H Band Neutrophils % (Manual) 10 H Lymphocytes % Lymphocytes % (Manual) 1 L Monocytes % Eosinophils % Eosinophils % (Manual) 1 Basophils % Nucleated Red Blood Cells % 0.0 Neutrophils # (Manual) 14.9 H Band Neutrophils # 1.6 H Absolute Lymphocytes (Manual) 0.1 L Lymphocytes # Monocytes # Eosinophils # Basophils # Nucleated Red Blood Cells # Thrombocytosis 4 H Platelet Estimate SIG DECREASED Poikilocytosis 3+ Anisocytosis 1+ Macrocytosis 1+ Sodium Level 142 Potassium Level 4.0 Chloride Level 103 Carbon Dioxide Level 26 Anion Gap 17 H Blood Urea Nitrogen 75 H Creatinine 0.74 Glucose Level 80 # Calcium Level 7.9 L Random Vancomycin Level 22.2 Medications Medications Current Medications Ondansetron HCl (Zofran Inj) 4 mg Q6H PRN IV NAUSEA AND/OR VOMITING Last administered on 11/30/16t 09:29; Admin Dose 4 MG; Start 11/28/16 at 20:00 Acetaminophen (Tylenol Tab) 650 mg Q6H PRN PO PAIN LEVEL 1-3 OR FEVER; Start at 20:00 Docusate Sodium (Colace) 100 mg Q12H PRN PO CONSTIPATION; Start 11/28/16 at 20: 00 Magnesium Hydroxide (Milk Of Mag) 30 ml DAILY PRN PO CONSTIPATION; Start at 20:00 Sodium Biphosphate/ Sodium Phosphate (Fleet Enema) 133 ml DAILY PRN [place] CONSTIPATION; Start 11/28/16 at 20:00 Hydralazine HCl (Apresoline) 10 mg Q6H PRN IV SBP > 180; Start 11/28/16 at 20:00 Diphenoxylate HCl/ Atropine (Lomotil Liquid Cup) 5 ml Q6H PRN GTB DIARRHEA; Start 11/28/16 at 20:00 Loratadine (Claritin) 10 mg DAILY PO Last administered on 12/04/16 09:04; Admin Dose 10 MG; Start 11/29/16 at 09:00 Hydromorphone HCl (Dilaudid) 1 mg Q2H PRN IV PAIN LEVEL 1-3 Last administered on 12/09/16 14:00; Admin Dose 1 MG; Start 11/29/16 at 11:00 Dexamethasone (Decadron) 6 mg BID IV Last administered on 12/09/16 08:48; Admin Dose 6 MG; Start 11/29/16 at 21:00 Furosemide 20 mg 20 mg DAILY IV Last administered on 12/09/16 13:33; Admin Dose 20 MG; Start 11/30/16 at 09:00 Norepinephrine/ Dextrose (Levophed/D5W) 250 ml @ 0.46 mls/hr TITRATE IV ; Start 12/06/16 at 16:00 IV Flush (NS 10 ml) 10 ml PRN PRN IV IV PROTOCOL; Start 12/06/16 at 16:00 Dextrose (D50w Syringe) 25 ml Q15M PRN IV Till BS 80 mg/dL or above x2; Start 12/07/16 at 08:00 Dextrose 50 ml 50 ml Q15M PRN IV Till BS 80 mg/dL or above x2 Last administered on 12/07/16 18:37; Admin Dose 50 ML; Start 12/07/16 at 08:00 Total Parenteral Nutrition (Tpn) 1,000 ml @ 40 mls/hr Q24H IV Last administered on 12/09/16 11:49; Admin Dose 40 MLS/HR; Start 12/07/16 at 11:30 Famotidine (Pepcid Iv) 20 mg BID IV Last administered on 12/09/16 08:48; Admin Dose 20 MG; Start 12/08/16 at 09:00 Diagnostic Test (Pha) 1 ea 1 ea Q12 XX Last administered on 12/09/16 08:51; Admin Dose 1 EA; Start 12/08/16 at 21:00 Dopamine HCl/ Dextrose 250 ml @ 3.788 mls/ hr TITRATE IV Last administered on 12/09/16 00:31; Admin Dose 9.469 MLS/HR; Start 12/08/16 at 08:40 Hypromellose 2 drop 2 drop TID BOTH EYES Last administered on 12/09/16t 13:33; Admin Dose 2 DROP; Start 12/08/16 at 17:30 Vancomycin HCl/ Sodium Chloride (Vancocin/NS) 150 ml @ 75 mls/hr Q24H IVPB ; Start 12/10/16 at 12:00 KATLYN RODRIGES Dec 09, 2016 19:16
[2016-12-10] VITALS (96 sets, daily range): BP systolic 72–138; BP diastolic 59–102; PULSE 71–124; RESP 17–31
[2016-12-10] MEDS: DOPamine-D5W 1.6 MG/ML 250 ML IV SCH ×2 (01:29→21:20)
[2016-12-10 05:14] LABS: ABNORMAL IP MESSAGE 1; HEMATOCRIT 31.8 % (42.0-52.0); HEMOGLOBIN 10.3 g/dl (14.0-18.0); MEAN CORPUSCULAR HEMOGLOBIN 30.7 pg (29.0-33.0); MEAN CORPUSCULAR HGB CONC 32.4 g/dl (32.0-37.0); MEAN CORPUSCULAR VOLUME 94.9 fl (82.0-101.0); MEAN PLATELET VOLUME 13.3 fl (7.4-10.4); PLATELET COUNT 33 10^3/UL (140-415); POSITIVE DIFF @See below; RED BLOOD COUNT 3.35 10^6/ul (4.70-6.10); WHITE BLOOD COUNT 18.1 10^3/ul (4.8-10.8)
[2016-12-10 05:38] LABS: MAGNESIUM 1.9 mg/dl (1.7-2.5)
[2016-12-10 05:40] LABS: CALCIUM 7.3 mg/dl (8.4-10.2); CREATININE 0.85 mg/dl (0.61-1.24); POTASSIUM 4.3 mmol/L (3.5-5.1)
[2016-12-10 08:56] LABS: ANISOCYTOSIS 1+ (0-0); BURR CELLS 2+ (0-0); PLATELET ESTIMATE SIG DECREASED; POIKILOCYTOSIS 3+ (0-0); SPHEROCYTES 1+ (0-0)
[2016-12-10] MEDS: FAMOTIDINE 20 MG INJ IV SCH ×2 (08:57→21:11)
[2016-12-10] MEDS: DEXAMETHASONE 4 MG/ML 1 ML INJ IV SCH ×2 (08:57→21:11)
[2016-12-10] MEDS: ACCU-CHEK XX SCH ×2 (09:00→21:25)
[2016-12-10] MEDS: LORATADINE 10 MG TAB PO SCH (09:00)
[2016-12-10] MEDS: HYPROMELLOSE 0.5% 15 ML OPH BOTH EYES SCH ×3 (09:02→21:12)
[2016-12-10] MEDS: ALBUTEROL/IPRATROPIUM (NEB) 3 ML AMP HHN SCH ×4 (09:17→20:20)
--- NOTE | 2016-12-10 11:37 | CONS ---
Date/Time of Note Date/Time of Note DATE: 12/10/16 TIME: 11:36 Consult Date/Type/Reason Admit Date/Time Nov 28, 2016 at 18:48 Initial Consult Date 12/06/16 Type of Consultation: Pulmonary Ordering Provider: KATLYN RODRIGES Subjective Patient appears comfortable on Ventimask O2. Objective Vital Signs Date Time Temp Pulse Resp B/P Pulse Ox O2 Delivery O2 Flow Rate FiO2 12/10/16 09:30 114 25 101/84 95 12/10/16 09:18 3.0 12/10/16 08:16 Nasal Cannula 12/10/16 08:00 97.2 12/10/16 03:40 31 Intake and Output 12/09/16 12/09/16 12/10/16 15:00 23:00 07:00 Intake Total 372.771 ml 395.707 ml 416.47 ml Output Total 425 ml 470 ml 385 ml Balance -52.229 ml -74.293 ml 31.47 ml Exam GENERAL: Chronically ill-appearing [place] gentleman. Ventimask oxygen VITAL SIGNS: per chart NECK: Supple. No JVD or lymphadenopathy. CARDIAC EXAM: S1, S2. No added sounds or murmurs. CHEST: clear bilaterally, No added sounds, rales or wheezes ABDOMEN: Soft, nontender. No guarding or rebound. EXTREMITIES: No cyanosis, clubbing edema +2 NEUROLOGIC: Generalized weakness. Results/Medications Result Diagram: 12/10/16 0400 12/10/16 0400 Results 24 hrs Laboratory Tests Test 12/09/16 20:37 12/10/16 04:00 12/10/16 09:33 Bedside Glucose 107 125 White Blood Count 18.1 H Red Blood Count 3.35 L Hemoglobin 10.3 L Hematocrit 31.8 L Mean Corpuscular Volume 94.9 Mean Corpuscular Hemoglobin 30.7 Mean Corpuscular Hemoglobin Concent 32.4 Red Cell Distribution Width 15.0 H Platelet Count 33 #L Mean Platelet Volume 13.3 H Neutrophils % Segmented Neutrophils % (Manual) 87 H Band Neutrophils % (Manual) 13 H Lymphocytes % Monocytes % Eosinophils % Basophils % Nucleated Red Blood Cells % 0.0 Neutrophils # (Manual) 16 H Band Neutrophils # 2.3 H Lymphocytes # Monocytes # Eosinophils # Basophils # Nucleated Red Blood Cells # Platelet Estimate SIG DECREASED Poikilocytosis 3+ Anisocytosis 1+ Spherocytes 1+ Sodium Level 139 Potassium Level 4.3 Chloride Level 107 Carbon Dioxide Level 25 Anion Gap 11 Blood Urea Nitrogen 95 H Creatinine 0.85 Glucose Level 96 Calcium Level 7.3 L Phosphorus Level 6.0 H Magnesium Level 1.9 Medications Current Medications Ondansetron HCl (Zofran Inj) 4 mg Q6H PRN IV NAUSEA AND/OR VOMITING Last administered on 11/30/16 09:29; Admin Dose 4 MG; Start 11/28/16 at 20:00 Acetaminophen (Tylenol Tab) 650 mg Q6H PRN PO PAIN LEVEL 1-3 OR FEVER; Start at 20:00 Docusate Sodium (Colace) 100 mg Q12H PRN PO CONSTIPATION; Start 11/28/16 at 20: 00 Magnesium Hydroxide (Milk Of Mag) 30 ml DAILY PRN PO CONSTIPATION; Start at 20:00 Sodium Biphosphate/ Sodium Phosphate (Fleet Enema) 133 ml DAILY PRN [place] CONSTIPATION; Start 11/28/16 at 20:00 Hydralazine HCl (Apresoline) 10 mg Q6H PRN IV SBP > 180; Start 11/28/16 at 20:00 Diphenoxylate HCl/ Atropine (Lomotil Liquid Cup) 5 ml Q6H PRN GTB DIARRHEA; Start 11/28/16 at 20:00 Loratadine (Claritin) 10 mg DAILY PO Last administered on 12/04/16 09:04; Admin Dose 10 MG; Start 11/29/16 at 09:00 Hydromorphone HCl (Dilaudid) 1 mg Q2H PRN IV PAIN LEVEL 1-3 Last administered on 12/09/16 14:00; Admin Dose 1 MG; Start 11/29/16 at 11:00 Dexamethasone (Decadron) 6 mg BID IV Last administered on 12/10/16 08:57; Admin Dose 6 MG; Start 11/29/16 at 21:00 Furosemide 20 mg 20 mg DAILY IV Last administered on 12/09/16 13:33; Admin Dose 20 MG; Start 11/30/16 at 09:00 Norepinephrine/ Dextrose (Levophed/D5W) 250 ml @ 0.46 mls/hr TITRATE IV ; Start 12/06/16 at 16:00 IV Flush (NS 10 ml) 10 ml PRN PRN IV IV PROTOCOL; Start 12/06/16 at 16:00 Dextrose (D50w Syringe) 25 ml Q15M PRN IV Till BS 80 mg/dL or above x2; Start 12/07/16 at 08:00 Dextrose 50 ml 50 ml Q15M PRN IV Till BS 80 mg/dL or above x2 Last administered on 12/07/16 18:37; Admin Dose 50 ML; Start 12/07/16 at 08:00 Total Parenteral Nutrition (Tpn) 1,000 ml @ 40 mls/hr Q24H IV Last administered on 12/09/16 11:49; Admin Dose 40 MLS/HR; Start 12/07/16 at 11:30 Famotidine (Pepcid Iv) 20 mg BID IV Last administered on 12/10/16 08:57; Admin Dose 20 MG; Start 12/08/16 at 09:00 Diagnostic Test (Pha) 1 ea 1 ea Q12 XX Last administered on 12/09/16 20:38; Admin Dose 1 EA; Start 12/08/16 at 21:00 Dopamine HCl/ Dextrose 250 ml @ 3.788 mls/ hr TITRATE IV Last administered on 12/10/16 01:29; Admin Dose 9.469 MLS/HR; Start 12/08/16 at 08:40 Hypromellose 2 drop 2 drop TID BOTH EYES Last administered on 12/10/16 09:02; Admin Dose 2 DROP; Start 12/08/16 at 17:30 Vancomycin HCl/ Sodium Chloride (Vancocin/NS) 150 ml @ 75 mls/hr Q24H IVPB ; Start 12/10/16 at 12:00 Assessment/Plan Chief Complaint/Hosp Course Assessment 1. Hypoxemic respiratory failure likely secondary to combination of healthcare associated pneumonia with likely underlying severe COPD. Possible component of aspiration also. 2. Advanced metastatic pancreatic cancer with a history of Whipple's resection. 3. Failure to thrive with progressive cachexia. 4. Severe sepsis Plan 1. Continue ICU monitoring 2. Family declined hospice and nursing staff. 3. Continue broad-spectrum antibiotics, supplemental O2 and IV fluids for now. Continue current measures DNR noted. Consider transfer to telemetry. Problems: SORAIDA GRIGGS MD, [facility] Dec 10, 2016 11:37
[2016-12-10] MEDS: FUROSEMIDE 20 MG INJ IV SCH (11:47)
[2016-12-10] MEDS: VANCOMYCIN 750 MG in SOD CHLORIDE 0.9% 150 ML IVPB SCH (12:01)
[2016-12-10] MEDS: TPN 1,000 ML IV SCH (12:04)
--- NOTE | 2016-12-10 13:08 | PN ---
Date/Time of Note Date/Time of Note DATE: 12/10/16 TIME: 13:06 Assessment/Plan VTE Prophylaxis VTE Prophylaxis Intervention: SCD's Assessment/Plan Chief Complaint/Hosp Course 1. Acute hypoxic respiratory failure. Etiology could be multifactorial including underlying aspiration and infectious process. Patient currently on noninvasive positive pressure ventilation. Pulmonology consult has been obtained. - continue inhaled bronchodilators. Patient may eventually need intubation. 2. End-stage pancreatic cancer. Not a Candidate for chemotherapy or other therapies. Family refusing any hospice at this time. - continue pain control meds, IV steroids for now - add D5 1/2 NS x 12 hrs for low sugars today 3. Cachexia. Secondary to underlying advanced pancreatic cancer. - continue n.p.o. because of worsening respiratory distress. - palliative care on case 4. Shock. Etiology unclear. Possible underlying sepsis. - continue IV pressors to maintain appropriate blood pressure readings. 5. Pancytopenia. Most probably secondary to underlying malignant process. - will order DIC panel, and d/c heparin and zosyn (low plts) - plt ordered today as well. 6. Coagulopathy - f/u DIC panel 7. Dysphagia. Status post evaluation by speech therapy. The patient is not a candidate for any oral intake at least for a time being. 8. Fluids, electrolytes, and nutrition. N.p.o. 9. DVT prophylaxis. SCD's 10. Gastrointestinal prophylaxis. Proton pump inhibitors. DC planning: Palate care on case, family deciding on whether or not to enroll in hospice Problems: Subjective 24 Hr Interval Summary Subjective hx not possible: pt non-verbal Exam/Review of Systems Vital Signs Vitals Vital Signs Date Time Temp Pulse Resp B/P Pulse Ox O2 Delivery O2 Flow Rate FiO2 12/10/16 09:30 114 25 101/84 95 12/10/16 09:18 3.0 12/10/16 08:16 Nasal Cannula 12/10/16 08:00 97.2 12/10/16 03:40 31 Intake and Output 12/09/16 12/09/16 12/10/16 15:00 23:00 07:00 Intake Total 372.771 ml 395.707 ml 416.47 ml Output Total 425 ml 470 ml 385 ml Balance -52.229 ml -74.293 ml 31.47 ml Exam Constitutional: non-verbal Respiratory: clear to auscultation Cardiovascular: regular rate and rhythm Gastrointestinal: soft, No distended Musculoskeletal: nl extremities to inspection Results Result Diagram: 12/10/16 0400 12/10/16 0400 Results 24 hrs Laboratory Tests Test 12/09/16 20:37 12/10/16 04:00 12/10/16 09:33 Bedside Glucose 107 125 White Blood Count 18.1 H Red Blood Count 3.35 L Hemoglobin 10.3 L Hematocrit 31.8 L Mean Corpuscular Volume 94.9 Mean Corpuscular Hemoglobin 30.7 Mean Corpuscular Hemoglobin Concent 32.4 Red Cell Distribution Width 15.0 H Platelet Count 33 #L Mean Platelet Volume 13.3 H Neutrophils % Segmented Neutrophils % (Manual) 87 H Band Neutrophils % (Manual) 13 H Lymphocytes % Monocytes % Eosinophils % Basophils % Nucleated Red Blood Cells % 0.0 Neutrophils # (Manual) 16 H Band Neutrophils # 2.3 H Lymphocytes # Monocytes # Eosinophils # Basophils # Nucleated Red Blood Cells # Platelet Estimate SIG DECREASED Poikilocytosis 3+ Anisocytosis 1+ Spherocytes 1+ Sodium Level 139 Potassium Level 4.3 Chloride Level 107 Carbon Dioxide Level 25 Anion Gap 11 Blood Urea Nitrogen 95 H Creatinine 0.85 Glucose Level 96 Calcium Level 7.3 L Phosphorus Level 6.0 H Magnesium Level 1.9 Medications Medications Current Medications Ondansetron HCl (Zofran Inj) 4 mg Q6H PRN IV NAUSEA AND/OR VOMITING Last administered on 11/30/16 09:29; Admin Dose 4 MG; Start 11/28/16 at 20:00 Acetaminophen (Tylenol Tab) 650 mg Q6H PRN PO PAIN LEVEL 1-3 OR FEVER; Start at 20:00 Docusate Sodium (Colace) 100 mg Q12H PRN PO CONSTIPATION; Start 11/28/16 at 20: 00 Magnesium Hydroxide (Milk Of Mag) 30 ml DAILY PRN PO CONSTIPATION; Start at 20:00 Sodium Biphosphate/ Sodium Phosphate (Fleet Enema) 133 ml DAILY PRN [place] CONSTIPATION; Start 11/28/16 at 20:00 Hydralazine HCl (Apresoline) 10 mg Q6H PRN IV SBP > 180; Start 11/28/16 at 20:00 Diphenoxylate HCl/ Atropine (Lomotil Liquid Cup) 5 ml Q6H PRN GTB DIARRHEA; Start 11/28/16 at 20:00 Loratadine (Claritin) 10 mg DAILY PO Last administered on 12/04/16 09:04; Admin Dose 10 MG; Start 11/29/16 at 09:00 Hydromorphone HCl (Dilaudid) 1 mg Q2H PRN IV PAIN LEVEL 1-3 Last administered on 12/09/16 14:00; Admin Dose 1 MG; Start 11/29/16 at 11:00 Dexamethasone (Decadron) 6 mg BID IV Last administered on 12/10/16 08:57; Admin Dose 6 MG; Start 11/29/16 at 21:00 Furosemide 20 mg 20 mg DAILY IV Last administered on 12/10/16 11:47; Admin Dose 20 MG; Start 11/30/16 at 09:00 Norepinephrine/ Dextrose (Levophed/D5W) 250 ml @ 0.46 mls/hr TITRATE IV ; Start 12/06/16 at 16:00 IV Flush (NS 10 ml) 10 ml PRN PRN IV IV PROTOCOL; Start 12/06/16 at 16:00 Dextrose (D50w Syringe) 25 ml Q15M PRN IV Till BS 80 mg/dL or above x2; Start 12/07/16 at 08:00 Dextrose 50 ml 50 ml Q15M PRN IV Till BS 80 mg/dL or above x2 Last administered on 12/07/16 18:37; Admin Dose 50 ML; Start 12/07/16 at 08:00 Total Parenteral Nutrition (Tpn) 1,000 ml @ 40 mls/hr Q24H IV Last administered on 12/10/16 12:04; Admin Dose 40 MLS/HR; Start 12/07/16 at 11:30 Famotidine (Pepcid Iv) 20 mg BID IV Last administered on 12/10/16 08:57; Admin Dose 20 MG; Start 12/08/16 at 09:00 Diagnostic Test (Pha) 1 ea 1 ea Q12 XX Last administered on 12/09/16 20:38; Admin Dose 1 EA; Start 12/08/16 at 21:00 Dopamine HCl/ Dextrose 250 ml @ 3.788 mls/ hr TITRATE IV Last administered on 12/10/16 01:29; Admin Dose 9.469 MLS/HR; Start 8/15/17 at 08:40 Hypromellose 2 drop 2 drop TID BOTH EYES Last administered on 12/10/16 09:02; Admin Dose 2 DROP; Start 12/08/16 at 17:30 Vancomycin HCl/ Sodium Chloride (Vancocin/NS) 150 ml @ 75 mls/hr Q24H IVPB Last administered on 12/10/16 12:01; Admin Dose 75 MLS/HR; Start 12/10/16 at 12 :00 KATLYN RODRIGES Dec 10, 2016 13:07
--- NOTE | 2016-12-10 15:31 | CONS ---
Date/Time of Note Date/Time of Note DATE: 12/10/16 TIME: 15:28 Consultation Date/Type/Reason Admit Date/Time Nov 28, 2016 at 18:48 Initial Consult Date 11/29/16 Type of Consultation: Palliative care Referring Provider: KATLYN RODRIGES 24 HR Interval Summary Free Text/Dictation I am in the process of trying to find family members, but I cannot. Patient appears to be dying, agonal breathing requiring low doses of dopamine when titrated back blood pressure systolic in the 70s. I have asked if a bioethics consultation tomorrow December 11. I do not believe patient should live in this debilitated condition but should be transitioned to comfort measures. Her last meeting the family members with meet with in-house GIP service and discussed comfort measures. My understanding from nursing staff is they have changed their mind. Patient should not go on living in his condition. I will continue to try and contact family members for the rest of the day. Excellent nursing care given. Exam/Review of Systems Vital Signs Vitals Vital Signs Date Time Temp Pulse Resp B/P Pulse Ox O2 Delivery O2 Flow Rate FiO2 12/10/16 15:00 100 23 101/81 99 Nasal Cannula 12/10/16 13:45 3.0 12/10/16 12:00 97.2 12/10/16 03:40 31 Intake and Output 12/09/16 12/09/16 12/10/16 15:00 23:00 07:00 Intake Total 372.771 ml 395.707 ml 416.47 ml Output Total 425 ml 470 ml 385 ml Balance -52.229 ml -74.293 ml 31.47 ml Results Result Diagram: 12/10/16 0400 12/10/16 0400 Results 24 hrs Laboratory Tests Test 12/09/16 20:37 12/10/16 04:00 12/10/16 09:33 Bedside Glucose 107 125 White Blood Count 18.1 H Red Blood Count 3.35 L Hemoglobin 10.3 L Hematocrit 31.8 L Mean Corpuscular Volume 94.9 Mean Corpuscular Hemoglobin 30.7 Mean Corpuscular Hemoglobin Concent 32.4 Red Cell Distribution Width 15.0 H Platelet Count 33 #L Mean Platelet Volume 13.3 H Neutrophils % Segmented Neutrophils % (Manual) 87 H Band Neutrophils % (Manual) 13 H Lymphocytes % Monocytes % Eosinophils % Basophils % Nucleated Red Blood Cells % 0.0 Neutrophils # (Manual) 16 H Band Neutrophils # 2.3 H Lymphocytes # Monocytes # Eosinophils # Basophils # Nucleated Red Blood Cells # Platelet Estimate SIG DECREASED Poikilocytosis 3+ Anisocytosis 1+ Spherocytes 1+ Sodium Level 139 Potassium Level 4.3 Chloride Level 107 Carbon Dioxide Level 25 Anion Gap 11 Blood Urea Nitrogen 95 H Creatinine 0.85 Glucose Level 96 Calcium Level 7.3 L Phosphorus Level 6.0 H Magnesium Level 1.9 Medications Medications Current Medications Ondansetron HCl (Zofran Inj) 4 mg Q6H PRN IV NAUSEA AND/OR VOMITING Last administered on 11/30/16 09:29; Admin Dose 4 MG; Start 11/28/16 at 20:00 Acetaminophen (Tylenol Tab) 650 mg Q6H PRN PO PAIN LEVEL 1-3 OR FEVER; Start at 20:00 Docusate Sodium (Colace) 100 mg Q12H PRN PO CONSTIPATION; Start 11/28/16 at 20: 00 Magnesium Hydroxide (Milk Of Mag) 30 ml DAILY PRN PO CONSTIPATION; Start at 20:00 Sodium Biphosphate/ Sodium Phosphate (Fleet Enema) 133 ml DAILY PRN [place] CONSTIPATION; Start 11/28/16 at 20:00 Hydralazine HCl (Apresoline) 10 mg Q6H PRN IV SBP > 180; Start 11/28/16 at 20:00 Diphenoxylate HCl/ Atropine (Lomotil Liquid Cup) 5 ml Q6H PRN GTB DIARRHEA; Start 11/28/16 at 20:00 Loratadine (Claritin) 10 mg DAILY PO Last administered on 12/04/16 09:04; Admin Dose 10 MG; Start 11/29/16 at 09:00 Hydromorphone HCl (Dilaudid) 1 mg Q2H PRN IV PAIN LEVEL 1-3 Last administered on 12/09/16 14:00; Admin Dose 1 MG; Start 11/29/16 at 11:00 Dexamethasone (Decadron) 6 mg BID IV Last administered on 12/10/16 08:57; Admin Dose 6 MG; Start 11/29/16 at 21:00 Furosemide 20 mg 20 mg DAILY IV Last administered on 12/10/16 11:47; Admin Dose 20 MG; Start 11/30/16 at 09:00 Norepinephrine/ Dextrose (Levophed/D5W) 250 ml @ 0.46 mls/hr TITRATE IV ; Start 12/06/16 at 16:00 IV Flush (NS 10 ml) 10 ml PRN PRN IV IV PROTOCOL; Start 12/06/16 at 16:00 Dextrose (D50w Syringe) 25 ml Q15M PRN IV Till BS 80 mg/dL or above x2; Start 12/07/16 at 08:00 Dextrose 50 ml 50 ml Q15M PRN IV Till BS 80 mg/dL or above x2 Last administered on 12/07/16 18:37; Admin Dose 50 ML; Start 12/07/16 at 08:00 Total Parenteral Nutrition (Tpn) 1,000 ml @ 40 mls/hr Q24H IV Last administered on 12/10/16 12:04; Admin Dose 40 MLS/HR; Start 12/07/16 at 11:30 Famotidine (Pepcid Iv) 20 mg BID IV Last administered on 12/10/16 08:57; Admin Dose 20 MG; Start 12/08/16 at 09:00 Diagnostic Test (Pha) 1 ea 1 ea Q12 XX Last administered on 12/09/16 20:38; Admin Dose 1 EA; Start 12/08/16 at 21:00 Dopamine HCl/ Dextrose 250 ml @ 3.788 mls/ hr TITRATE IV Last administered on 12/10/16 01:29; Admin Dose 9.469 MLS/HR; Start 12/08/16 at 08:40 Hypromellose 2 drop 2 drop TID BOTH EYES Last administered on 12/10/16 13:14; Admin Dose 2 DROP; Start 12/08/16 at 17:30 Vancomycin HCl/ Sodium Chloride (Vancocin/NS) 150 ml @ 75 mls/hr Q24H IVPB Last administered on 12/10/16 12:01; Admin Dose 75 MLS/HR; Start 12/10/16 at 12 :00 KEYONNA JAFFE Dec 10, 2016 15:31
[2016-12-11] VITALS (95 sets, daily range): BP systolic 70–128; BP diastolic 56–93; PULSE 87–103; RESP 18–37
[2016-12-11 05:16] LABS: ABNORMAL IP MESSAGE 1; HEMATOCRIT 33.1 % (42.0-52.0); HEMOGLOBIN 10.6 g/dl (14.0-18.0); MEAN CORPUSCULAR HEMOGLOBIN 30.4 pg (29.0-33.0); MEAN CORPUSCULAR VOLUME 94.8 fl (82.0-101.0); MEAN PLATELET VOLUME 13.5 fl (7.4-10.4); POSITIVE DIFF @See below; RED BLOOD COUNT 3.49 10^6/ul (4.70-6.10); RED CELL DISTRIBUTION WIDTH 15.2 % (11.5-14.5); WHITE BLOOD COUNT 12.9 10^3/ul (4.8-10.8)
[2016-12-11 05:39] LABS: CALCIUM 7.2 mg/dl (8.4-10.2); CREATININE 0.83 mg/dl (0.61-1.24); POTASSIUM 4.5 mmol/L (3.5-5.1)
[2016-12-11 06:00] LABS: PLATELET COUNT 22 10^3/UL (140-415)
--- NOTE | 2016-12-11 07:46 | CONS ---
Date/Time of Note Date/Time of Note DATE: 12/11/16 TIME: 07:42 Assessment/Plan Assessment/Plan Additional Assessment/Plan Spoke with patient's daughter last evening. She insist the patient will get better as long as he is given water and able to eat. I told her that he is actively dying and that prolonging his life is only causing him to suffer more. She still insisted given fluid and nutrition, explained we could not do that for fear of aspiration, she continue to insist and stated she wanted him to stay in the intensive care unit and to improve. I explained that the physicians felt that we were doing more harm than good that patient should be on comfort measures. I told her that there is a committee called bioethics that we can refer her to where she can express her desires to continue with this level of care, get their support and feedback. I will refer to bioethics aerial lineman for consideration of a meeting soon as possible. Consultation Date/Type/Reason Admit Date/Time Nov 28, 2016 at 18:48 Initial Consult Date 11/29/16 Type of Consultation: Palliative care Referring Provider: KATLYN RODRIGES Exam/Review of Systems Vital Signs Vitals Vital Signs Date Time Temp Pulse Resp B/P Pulse Ox O2 Delivery O2 Flow Rate FiO2 12/11/16 06:30 90 26 99/76 100 Nasal Cannula 3.0 12/11/16 04:00 97.1 12/11/16 01:27 31 Intake and Output 12/10/16 12/10/16 12/11/16 15:00 23:00 07:00 Intake Total 560.904 ml 410.692 ml 359.17 ml Output Total 440 ml 360 ml 300 ml Balance 120.904 ml 50.692 ml 59.17 ml Results Result Diagram: 12/11/16 0400 12/11/16 0400 Results 24 hrs Laboratory Tests Test 12/10/16 09:33 12/10/16 21:13 12/11/16 04:00 Bedside Glucose 125 150 White Blood Count 12.9 #H Red Blood Count 3.49 L Hemoglobin 10.6 L Hematocrit 33.1 L Mean Corpuscular Volume 94.8 Mean Corpuscular Hemoglobin 30.4 Mean Corpuscular Hemoglobin Concent 32.0 Red Cell Distribution Width 15.2 H Platelet Count 22 #*L Mean Platelet Volume 13.5 H Neutrophils % Eosinophils % Nucleated Red Blood Cells % 0.0 Neutrophils # (Manual) 13 H Eosinophils # Sodium Level 143 Potassium Level 4.5 Chloride Level 106 Carbon Dioxide Level 26 Anion Gap 16 Blood Urea Nitrogen 104 H Creatinine 0.83 Glucose Level 139 # Calcium Level 7.2 L Medications Medications Current Medications Ondansetron HCl (Zofran Inj) 4 mg Q6H PRN IV NAUSEA AND/OR VOMITING Last administered on 11/30/16 09:29; Admin Dose 4 MG; Start 11/28/16 at 20:00 Acetaminophen (Tylenol Tab) 650 mg Q6H PRN PO PAIN LEVEL 1-3 OR FEVER; Start at 20:00 Docusate Sodium (Colace) 100 mg Q12H PRN PO CONSTIPATION; Start 11/28/16 at 20: 00 Magnesium Hydroxide (Milk Of Mag) 30 ml DAILY PRN PO CONSTIPATION; Start at 20:00 Sodium Biphosphate/ Sodium Phosphate (Fleet Enema) 133 ml DAILY PRN [place] CONSTIPATION; Start 11/28/16 at 20:00 Hydralazine HCl (Apresoline) 10 mg Q6H PRN IV SBP > 180; Start 11/28/16 at 20:00 Diphenoxylate HCl/ Atropine (Lomotil Liquid Cup) 5 ml Q6H PRN GTB DIARRHEA; Start 11/28/16 at 20:00 Loratadine (Claritin) 10 mg DAILY PO Last administered on 12/04/16 09:04; Admin Dose 10 MG; Start 11/29/16 at 09:00 Hydromorphone HCl (Dilaudid) 1 mg Q2H PRN IV PAIN LEVEL 1-3 Last administered on 12/09/16 14:00; Admin Dose 1 MG; Start 11/29/16 at 11:00 Dexamethasone (Decadron) 6 mg BID IV Last administered on 12/10/16 21:11; Admin Dose 6 MG; Start 11/29/16 at 21:00 Furosemide 20 mg 20 mg DAILY IV Last administered on 12/10/16 11:47; Admin Dose 20 MG; Start 11/30/16 at 09:00 Norepinephrine/ Dextrose (Levophed/D5W) 250 ml @ 0.46 mls/hr TITRATE IV ; Start 12/06/16 at 16:00 IV Flush (NS 10 ml) 10 ml PRN PRN IV IV PROTOCOL; Start 12/06/16 at 16:00 Dextrose (D50w Syringe) 25 ml Q15M PRN IV Till BS 80 mg/dL or above x2; Start 12/07/16 at 08:00 Dextrose 50 ml 50 ml Q15M PRN IV Till BS 80 mg/dL or above x2 Last administered on 12/07/16 18:37; Admin Dose 50 ML; Start 12/07/16 at 08:00 Total Parenteral Nutrition (Tpn) 1,000 ml @ 40 mls/hr Q24H IV Last administered on 12/10/16 12:04; Admin Dose 40 MLS/HR; Start 12/07/16 at 11:30 Famotidine (Pepcid Iv) 20 mg BID IV Last administered on 12/10/16 21:11; Admin Dose 20 MG; Start 12/08/16 at 09:00 Diagnostic Test (Pha) 1 ea 1 ea Q12 XX Last administered on 12/10/16 21:25; Admin Dose 1 EA; Start 12/08/16 at 21:00 Dopamine HCl/ Dextrose 250 ml @ 3.788 mls/ hr TITRATE IV Last administered on 12/10/16 21:20; Admin Dose 11.363 MLS/HR; Start 12/08/16 at 08:40 Hypromellose 2 drop 2 drop TID BOTH EYES Last administered on 12/10/16 21:12; Admin Dose 2 DROP; Start 12/08/16 at 17:30 Vancomycin HCl/ Sodium Chloride (Vancocin/NS) 150 ml @ 75 mls/hr Q24H IVPB Last administered on 12/10/16 12:01; Admin Dose 75 MLS/HR; Start 12/10/16 at 12 :00 KEYONNA JAFFE Dec 11, 2016 07:46
[2016-12-11 07:49] LABS: ANISOCYTOSIS 2+ (0-0); BURR CELLS 2+ (0-0); MONOCYTES % (M) 1 % (0-11); PLATELET ESTIMATE SIG DECREASED; POIKILOCYTOSIS 3+ (0-0)
[2016-12-11] MEDS: ALBUTEROL/IPRATROPIUM (NEB) 3 ML AMP HHN SCH ×4 (08:27→21:33)
[2016-12-11] MEDS: HYPROMELLOSE 0.5% 15 ML OPH BOTH EYES SCH ×3 (09:00→20:56)
[2016-12-11] MEDS: ACCU-CHEK XX SCH ×2 (09:00→20:56)
[2016-12-11] MEDS: FUROSEMIDE 20 MG INJ IV SCH (09:00)
[2016-12-11] MEDS: LORATADINE 10 MG TAB PO SCH (09:00)
[2016-12-11] MEDS: DEXAMETHASONE 4 MG/ML 1 ML INJ IV SCH ×2 (10:16→20:56)
[2016-12-11] MEDS: FAMOTIDINE 20 MG INJ IV SCH ×2 (10:16→20:55)
--- NOTE | 2016-12-11 11:37 | CONS ---
Date/Time of Note Date/Time of Note DATE: 12/11/16 TIME: 11:35 Consult Date/Type/Reason Admit Date/Time Nov 28, 2016 at 18:48 Initial Consult Date 12/06/16 Type of Consultation: Pulmonary Ordering Provider: KATLYN RODRIGES Subjective Patient more comfortable this morning on nasal cannula oxygen Objective Vital Signs Date Time Temp Pulse Resp B/P Pulse Ox O2 Delivery O2 Flow Rate FiO2 12/11/16 09:15 101 34 99/78 98 12/11/16 09:00 Nasal Cannula 3.0 12/11/16 08:00 96.7 12/11/16 01:27 31 Intake and Output 12/10/16 12/10/16 12/11/16 14:59 22:59 06:59 Intake Total 564.691 ml 410.745 ml 410.48 ml Output Total 465 ml 365 ml 345 ml Balance 99.691 ml 45.745 ml 65.48 ml Exam GENERAL: Chronically ill-appearing Persian gentleman. VITAL SIGNS: per chart NECK: Supple. No JVD or lymphadenopathy. CARDIAC EXAM: S1, S2. No added sounds or murmurs. CHEST: clear bilaterally, No added sounds, rales or wheezes ABDOMEN: Soft, nontender. No guarding or rebound. EXTREMITIES: No cyanosis, clubbing edema +2 NEUROLOGIC: Generalized weakness. Results/Medications Result Diagram: 12/11/16 0400 12/11/16 0400 Results 24 hrs Laboratory Tests Test 12/10/16 21:13 12/11/16 04:00 12/11/16 10:22 Bedside Glucose 150 184 White Blood Count 12.9 #H Red Blood Count 3.49 L Hemoglobin 10.6 L Hematocrit 33.1 L Mean Corpuscular Volume 94.8 Mean Corpuscular Hemoglobin 30.4 Mean Corpuscular Hemoglobin Concent 32.0 Red Cell Distribution Width 15.2 H Platelet Count 22 #*L Mean Platelet Volume 13.5 H Neutrophils % Segmented Neutrophils % (Manual) 86 H Band Neutrophils % (Manual) 12 H Lymphocytes % (Manual) 1 L Monocytes % (Manual) 1 Eosinophils % Nucleated Red Blood Cells % 0.0 Neutrophils # (Manual) 11 H Band Neutrophils # 1.5 H Absolute Lymphocytes (Manual) 0.1 L Absolute Monocytes (Manual) 0.1 L Eosinophils # Platelet Estimate SIG DECREASED Poikilocytosis 3+ Anisocytosis 2+ Macrocytosis 2+ Sodium Level 143 Potassium Level 4.5 Chloride Level 106 Carbon Dioxide Level 26 Anion Gap 16 Blood Urea Nitrogen 104 H Creatinine 0.83 Glucose Level 139 # Calcium Level 7.2 L Medications Current Medications Ondansetron HCl (Zofran Inj) 4 mg Q6H PRN IV NAUSEA AND/OR VOMITING Last administered on 11/30/16 09:29; Admin Dose 4 MG; Start 11/28/16 at 20:00 Acetaminophen (Tylenol Tab) 650 mg Q6H PRN PO PAIN LEVEL 1-3 OR FEVER; Start at 20:00 Docusate Sodium (Colace) 100 mg Q12H PRN PO CONSTIPATION; Start 11/28/16 at 20: 00 Magnesium Hydroxide (Milk Of Mag) 30 ml DAILY PRN PO CONSTIPATION; Start at 20:00 Sodium Biphosphate/ Sodium Phosphate (Fleet Enema) 133 ml DAILY PRN [place] CONSTIPATION; Start 11/28/16 at 20:00 Hydralazine HCl (Apresoline) 10 mg Q6H PRN IV SBP > 180; Start 11/28/16 at 20:00 Diphenoxylate HCl/ Atropine (Lomotil Liquid Cup) 5 ml Q6H PRN GTB DIARRHEA; Start 11/28/16 at 20:00 Loratadine (Claritin) 10 mg DAILY PO Last administered on 12/04/16 09:04; Admin Dose 10 MG; Start 11/29/16 at 09:00 Hydromorphone HCl (Dilaudid) 1 mg Q2H PRN IV PAIN LEVEL 1-3 Last administered on 12/09/16 14:00; Admin Dose 1 MG; Start 11/29/16 at 11:00 Dexamethasone 6 mg 6 mg BID IV Last administered on 12/11/16 10:16; Admin Dose 6 MG; Start 11/29/16 at 21:00 Norepinephrine/ Dextrose (Levophed/D5W) 250 ml @ 0.46 mls/hr TITRATE IV ; Start 12/06/16 at 16:00 IV Flush (NS 10 ml) 10 ml PRN PRN IV IV PROTOCOL; Start 12/06/16 at 16:00 Dextrose (D50w Syringe) 25 ml Q15M PRN IV Till BS 80 mg/dL or above x2; Start 12/07/16 at 08:00 Dextrose 50 ml 50 ml Q15M PRN IV Till BS 80 mg/dL or above x2 Last administered on 12/07/16 18:37; Admin Dose 50 ML; Start 12/07/16 at 08:00 Total Parenteral Nutrition (Tpn) 1,000 ml @ 40 mls/hr Q24H IV Last administered on 12/10/16 12:04; Admin Dose 40 MLS/HR; Start 12/07/16 at 11:30 Famotidine (Pepcid Iv) 20 mg BID IV Last administered on 12/11/16 10:16; Admin Dose 20 MG; Start 12/08/16 at 09:00 Diagnostic Test (Pha) 1 ea 1 ea Q12 XX Last administered on 12/11/16 09:00; Admin Dose 1 EA; Start 12/08/16 at 21:00 Dopamine HCl/ Dextrose 250 ml @ 3.788 mls/ hr TITRATE IV Last administered on 12/10/16 21:20; Admin Dose 11.363 MLS/HR; Start 12/08/16 at 08:40 Hypromellose 2 drop 2 drop TID BOTH EYES Last administered on 12/11/16 09:00; Admin Dose 2 DROP; Start 12/08/16 at 17:30 Vancomycin HCl/ Sodium Chloride (Vancocin/NS) 150 ml @ 75 mls/hr Q24H IVPB Last administered on 12/10/16 12:01; Admin Dose 75 MLS/HR; Start 12/10/16 at 12 :00 Miscellaneous Information (*Rx Drug Level Order Reminder*) 1 ONCE ONCE XX ; Start 12/12/16 at 11:00; Stop 12/12/16 at 11:01 Assessment/Plan Chief Complaint/Hosp Course Assessment 1. Hypoxemic respiratory failure likely secondary to combination of healthcare associated pneumonia with likely underlying severe COPD. Possible component of aspiration also. 2. Advanced metastatic pancreatic cancer with a history of Whipple's resection. 3. Failure to thrive with progressive cachexia. 4. Severe sepsis 5. Thrombocytopenia Plan 1. Consider transfer to telemetry 2. Family declined hospice and nursing staff. 3. Continue broad-spectrum antibiotics, supplemental O2 and IV fluids for now. Bioethics meeting. Problems: SORAIDA GRIGGS MD, [facility] Dec 11, 2016 11:37
[2016-12-11] MEDS: VANCOMYCIN 750 MG in SOD CHLORIDE 0.9% 150 ML IVPB SCH (12:39)
[2016-12-11] MEDS: TPN 1,000 ML IV SCH (12:39)
[2016-12-11] MEDS: DOPamine-D5W 1.6 MG/ML 250 ML IV SCH (14:53)
--- NOTE | 2016-12-11 15:44 | PN ---
Date/Time of Note Date/Time of Note DATE: 12/11/16 TIME: 15:43 Assessment/Plan VTE Prophylaxis VTE Prophylaxis Intervention: SCD's Assessment/Plan Chief Complaint/Hosp Course 1. Acute hypoxic respiratory failure. Etiology could be multifactorial including underlying aspiration and infectious process. Patient currently on noninvasive positive pressure ventilation. Pulmonology consult has been obtained. - continue inhaled bronchodilators. Patient may eventually need intubation. 2. End-stage pancreatic cancer. Not a Candidate for chemotherapy or other therapies. Family refusing any hospice at this time. - continue pain control meds, IV steroids for now - add D5 1/2 NS x 12 hrs for low sugars today 3. Cachexia. Secondary to underlying advanced pancreatic cancer. - continue n.p.o. because of worsening respiratory distress. - palliative care on case 4. Shock. Etiology unclear. Possible underlying sepsis. - continue IV pressors to maintain appropriate blood pressure readings. 5. Pancytopenia. Most probably secondary to underlying malignant process. - will order DIC panel, and d/c heparin and zosyn (low plts) - plt ordered today as well. 6. Coagulopathy - f/u DIC panel 7. Dysphagia. Status post evaluation by speech therapy. The patient is not a candidate for any oral intake at least for a time being. 8. Fluids, electrolytes, and nutrition. N.p.o. 9. DVT prophylaxis. SCD's 10. Gastrointestinal prophylaxis. Proton pump inhibitors. DC planning: Palate care on case, family deciding on whether or not to enroll in hospice Problems: Subjective 24 Hr Interval Summary Subjective hx not possible: pt non-verbal Exam/Review of Systems Vital Signs Vitals Vital Signs Date Time Temp Pulse Resp B/P Pulse Ox O2 Delivery O2 Flow Rate FiO2 12/11/16 14:19 87 30 98 3.0 12/11/16 12:45 94/73 12/11/16 12:00 Nasal Cannula 12/11/16 12:00 96.4 12/11/16 01:27 31 Intake and Output 12/10/16 12/10/16 12/11/16 15:00 23:00 07:00 Intake Total 560.904 ml 410.692 ml 410.57 ml Output Total 440 ml 360 ml 300 ml Balance 120.904 ml 50.692 ml 110.57 ml Exam Constitutional: non-verbal Respiratory: clear to auscultation Cardiovascular: regular rate and rhythm Gastrointestinal: soft, No distended Musculoskeletal: nl extremities to inspection Results Result Diagram: 12/11/16 0400 12/11/16 0400 Results 24 hrs Laboratory Tests Test 12/10/16 21:13 12/11/16 04:00 12/11/16 10:22 Bedside Glucose 150 184 White Blood Count 12.9 #H Red Blood Count 3.49 L Hemoglobin 10.6 L Hematocrit 33.1 L Mean Corpuscular Volume 94.8 Mean Corpuscular Hemoglobin 30.4 Mean Corpuscular Hemoglobin Concent 32.0 Red Cell Distribution Width 15.2 H Platelet Count 22 #*L Mean Platelet Volume 13.5 H Neutrophils % Segmented Neutrophils % (Manual) 86 H Band Neutrophils % (Manual) 12 H Lymphocytes % (Manual) 1 L Monocytes % (Manual) 1 Eosinophils % Nucleated Red Blood Cells % 0.0 Neutrophils # (Manual) 11 H Band Neutrophils # 1.5 H Absolute Lymphocytes (Manual) 0.1 L Absolute Monocytes (Manual) 0.1 L Eosinophils # Platelet Estimate SIG DECREASED Poikilocytosis 3+ Anisocytosis 2+ Macrocytosis 2+ Sodium Level 143 Potassium Level 4.5 Chloride Level 106 Carbon Dioxide Level 26 Anion Gap 16 Blood Urea Nitrogen 104 H Creatinine 0.83 Glucose Level 139 # Calcium Level 7.2 L Medications Medications Current Medications Ondansetron HCl (Zofran Inj) 4 mg Q6H PRN IV NAUSEA AND/OR VOMITING Last administered on 11/30/16t 09:29; Admin Dose 4 MG; Start 11/28/16 at 20:00 Acetaminophen (Tylenol Tab) 650 mg Q6H PRN PO PAIN LEVEL 1-3 OR FEVER; Start at 20:00 Docusate Sodium (Colace) 100 mg Q12H PRN PO CONSTIPATION; Start 11/28/16 at 20: 00 Magnesium Hydroxide (Milk Of Mag) 30 ml DAILY PRN PO CONSTIPATION; Start at 20:00 Sodium Biphosphate/ Sodium Phosphate (Fleet Enema) 133 ml DAILY PRN [place] CONSTIPATION; Start 11/28/16 at 20:00 Hydralazine HCl (Apresoline) 10 mg Q6H PRN IV SBP > 180; Start 11/28/16 at 20:00 Diphenoxylate HCl/ Atropine (Lomotil Liquid Cup) 5 ml Q6H PRN GTB DIARRHEA; Start 11/28/16 at 20:00 Loratadine (Claritin) 10 mg DAILY PO Last administered on 12/04/16 09:04; Admin Dose 10 MG; Start 11/29/16 at 09:00 Hydromorphone HCl (Dilaudid) 1 mg Q2H PRN IV PAIN LEVEL 1-3 Last administered on 12/09/16 14:00; Admin Dose 1 MG; Start 11/29/16 at 11:00 Dexamethasone 6 mg 6 mg BID IV Last administered on 12/11/16 10:16; Admin Dose 6 MG; Start 11/29/16 at 21:00 Norepinephrine/ Dextrose (Levophed/D5W) 250 ml @ 0.46 mls/hr TITRATE IV ; Start 12/06/16 at 16:00 IV Flush (NS 10 ml) 10 ml PRN PRN IV IV PROTOCOL; Start 12/06/16 at 16:00 Dextrose (D50w Syringe) 25 ml Q15M PRN IV Till BS 80 mg/dL or above x2; Start 12/07/16 at 08:00 Dextrose 50 ml 50 ml Q15M PRN IV Till BS 80 mg/dL or above x2 Last administered on 12/07/16 18:37; Admin Dose 50 ML; Start 12/07/16 at 08:00 Total Parenteral Nutrition (Tpn) 1,000 ml @ 40 mls/hr Q24H IV Last administered on 12/11/16 12:39; Admin Dose 40 MLS/HR; Start 12/07/16 at 11:30 Famotidine (Pepcid Iv) 20 mg BID IV Last administered on 12/11/16 10:16; Admin Dose 20 MG; Start 12/08/16 at 09:00 Diagnostic Test (Pha) 1 ea 1 ea Q12 XX Last administered on 12/11/16 09:00; Admin Dose 1 EA; Start 12/08/16 at 21:00 Dopamine HCl/ Dextrose 250 ml @ 3.788 mls/ hr TITRATE IV Last administered on 12/11/16 14:53; Admin Dose 18.938 MLS/HR; Start 12/08/16 at 08:40 Hypromellose 2 drop 2 drop TID BOTH EYES Last administered on 12/11/16 13:33; Admin Dose 2 DROP; Start 12/08/16 at 17:30 Vancomycin HCl/ Sodium Chloride (Vancocin/NS) 150 ml @ 75 mls/hr Q24H IVPB Last administered on 12/11/16t 12:39; Admin Dose 75 MLS/HR; Start 12/10/16 at 12 :00 Miscellaneous Information (*Rx Drug Level Order Reminder*) 1 ONCE ONCE XX ; Start 12/12/16 at 11:00; Stop 12/12/16 at 11:01 KATLYN RODRIGES Dec 11, 2016 15:44
[2016-12-11] MEDS ORDERED: PHENYLephrine 20MG IN 250 ML 250 ML IV SCH (18:00)
[2016-12-12] VITALS (97 sets, daily range): BP systolic 61–124; BP diastolic 46–95; PULSE 79–115; RESP 21–53
[2016-12-12] MEDS: DOPamine-D5W 1.6 MG/ML 250 ML IV SCH ×4 (00:05→21:18)
[2016-12-12] MEDS: HYDROmorphONE 1 MG/ML SYG IV PRN (00:42)
[2016-12-12 05:12] LABS: ABNORMAL IP MESSAGE 1; HEMATOCRIT 34.1 % (42.0-52.0); HEMOGLOBIN 10.9 g/dl (14.0-18.0); MEAN CORPUSCULAR VOLUME 96.9 fl (82.0-101.0); NUCLEATED RED BLOOD CELLS% 0.2 /100WBC (0.0-0.0); POSITIVE DIFF @See below; RED BLOOD COUNT 3.52 10^6/ul (4.70-6.10); RED CELL DISTRIBUTION WIDTH 15.3 % (11.5-14.5); WHITE BLOOD COUNT 10.3 10^3/ul (4.8-10.8)
[2016-12-12 05:40] LABS: CALCIUM 7.3 mg/dl (8.4-10.2); MAGNESIUM 2.1 mg/dl (1.7-2.5); PHOSPHORUS 5.6 mg/dl (2.5-4.9); POTASSIUM 5.1 mmol/L (3.5-5.1)
[2016-12-12 06:04] LABS: CREATININE 1.17 mg/dl (0.61-1.24)
[2016-12-12 06:39] LABS: PLATELET COUNT 12 10^3/UL (140-415)
[2016-12-12] MEDS: LORATADINE 10 MG TAB PO SCH (07:55)
[2016-12-12] MEDS ORDERED: PHENYLephrine 20MG IN 250 ML 250 ML IV SCH (08:00)
[2016-12-12] MEDS ORDERED: NORepinephrine 32 MG in DEXTROSE 5% 218 ML IV SCH (09:00)
[2016-12-12] MEDS: ACCU-CHEK XX SCH (09:00)
[2016-12-12] MEDS: ALBUTEROL/IPRATROPIUM (NEB) 3 ML AMP HHN SCH ×4 (09:36→21:21)
[2016-12-12] MEDS: HYPROMELLOSE 0.5% 15 ML OPH BOTH EYES SCH ×3 (09:42→21:29)
[2016-12-12] MEDS: FAMOTIDINE 20 MG INJ IV SCH ×2 (09:42→21:29)
[2016-12-12] MEDS: DEXAMETHASONE 4 MG/ML 1 ML INJ IV SCH ×2 (09:42→21:28)
--- NOTE | 2016-12-12 11:02 | PN ---
Date/Time of Note Date/Time of Note DATE: 12/12/16 TIME: 11:01 Assessment/Plan VTE Prophylaxis VTE Prophylaxis Intervention: SCD's Assessment/Plan Chief Complaint/Hosp Course 1. Acute hypoxic respiratory failure. Etiology could be multifactorial including underlying aspiration and infectious process. Patient currently on noninvasive positive pressure ventilation. Pulmonology consult has been obtained. - continue inhaled bronchodilators. Patient may eventually need intubation. 2. End-stage pancreatic cancer. Not a Candidate for chemotherapy or other therapies. Family refusing any hospice at this time. - continue pain control meds, IV steroids for now - add D5 1/2 NS x 12 hrs for low sugars today 3. Cachexia. Secondary to underlying advanced pancreatic cancer. - continue n.p.o. because of worsening respiratory distress. - palliative care on case 4. Shock. Etiology unclear. Possible underlying sepsis. - continue IV pressors to maintain appropriate blood pressure readings. 5. Pancytopenia. Most probably secondary to underlying malignant process. - will order DIC panel, and d/c heparin and zosyn (low plts) - plt ordered today as well. 6. Coagulopathy - f/u DIC panel 7. Dysphagia. Status post evaluation by speech therapy. The patient is not a candidate for any oral intake at least for a time being. 8. Fluids, electrolytes, and nutrition. N.p.o. 9. DVT prophylaxis. SCD's 10. Gastrointestinal prophylaxis. Proton pump inhibitors. DC planning: Patient has very poor prognosis, currently on 2 pressors Problems: Subjective 24 Hr Interval Summary Subjective hx not possible: pt non-verbal Exam/Review of Systems Vital Signs Vitals Vital Signs Date Time Temp Pulse Resp B/P Pulse Ox O2 Delivery O2 Flow Rate FiO2 12/12/16 09:36 100 32 99 Nasal Cannula 5.0 12/12/16 08:15 71/59 12/12/16 08:00 97.2 12/12/16 00:31 60 Intake and Output 12/11/16 12/11/16 12/12/16 15:00 23:00 07:00 Intake Total 609.81 ml 507.499 ml 547.819 ml Output Total 235 ml 150 ml 130 ml Balance 374.81 ml 357.499 ml 417.819 ml Exam Constitutional: non-verbal Respiratory: clear to auscultation Cardiovascular: regular rate and rhythm Gastrointestinal: soft, No distended Musculoskeletal: nl extremities to inspection Results Result Diagram: 12/12/16 0430 12/12/16 0430 Results 24 hrs Laboratory Tests Test 12/11/16 20:57 12/12/16 04:30 Bedside Glucose 180 White Blood Count 10.3 # Red Blood Count 3.52 L Hemoglobin 10.9 L Hematocrit 34.1 L Mean Corpuscular Volume 96.9 Mean Corpuscular Hemoglobin 31.0 Mean Corpuscular Hemoglobin Concent 32.0 Red Cell Distribution Width 15.3 H Platelet Count 12 #*L Mean Platelet Volume Neutrophils % Lymphocytes % Monocytes % Eosinophils % Basophils % Nucleated Red Blood Cells % 0.2 H Neutrophils # (Manual) 10 H Lymphocytes # Monocytes # Eosinophils # Basophils # Nucleated Red Blood Cells # Sodium Level 135 Potassium Level 5.1 Chloride Level 106 Carbon Dioxide Level 24 Anion Gap 10 # Blood Urea Nitrogen 117 H Creatinine 1.17 Glucose Level 178 Calcium Level 7.3 L Phosphorus Level 5.6 H Magnesium Level 2.1 Medications Medications Current Medications Ondansetron HCl (Zofran Inj) 4 mg Q6H PRN IV NAUSEA AND/OR VOMITING Last administered on 11/30/16 09:29; Admin Dose 4 MG; Start 11/28/16 at 20:00 Acetaminophen (Tylenol Tab) 650 mg Q6H PRN PO PAIN LEVEL 1-3 OR FEVER; Start at 20:00 Docusate Sodium (Colace) 100 mg Q12H PRN PO CONSTIPATION; Start 11/28/16 at 20: 00 Magnesium Hydroxide (Milk Of Mag) 30 ml DAILY PRN PO CONSTIPATION; Start at 20:00 Sodium Biphosphate/ Sodium Phosphate (Fleet Enema) [address] CONSTIPATION; Start 11/28/16 at 20:00 Hydralazine HCl (Apresoline) 10 mg Q6H PRN IV SBP > 180; Start 11/28/16 at 20:00 Diphenoxylate HCl/ Atropine (Lomotil Liquid Cup) 5 ml Q6H PRN GTB DIARRHEA; Start 11/28/16 at 20:00 Loratadine (Claritin) 10 mg DAILY PO Last administered on 12/04/16 09:04; Admin Dose 10 MG; Start 11/29/16 at 09:00 Hydromorphone HCl (Dilaudid) 1 mg Q2H PRN IV PAIN LEVEL 1-3 Last administered on 12/12/16 00:42; Admin Dose 1 MG; Start 11/29/16 at 11:00 Dexamethasone (Decadron) 6 mg BID IV Last administered on 12/12/16 09:42; Admin Dose 6 MG; Start 11/29/16 at 21:00 IV Flush (NS 10 ml) 10 ml PRN PRN IV IV PROTOCOL; Start 12/06/16 at 16:00 Dextrose (D50w Syringe) 25 ml Q15M PRN IV Till BS 80 mg/dL or above x2; Start 12/07/16 at 08:00 Dextrose 50 ml 50 ml Q15M PRN IV Till BS 80 mg/dL or above x2 Last administered on 12/07/16 18:37; Admin Dose 50 ML; Start 12/07/16 at 08:00 Total Parenteral Nutrition (Tpn) 1,000 ml @ 40 mls/hr Q24H IV Last administered on 12/11/16 12:39; Admin Dose 40 MLS/HR; Start 12/07/16 at 11:30 Famotidine 20 mg 20 mg BID IV Last administered on 12/12/16 09:42; Admin Dose 20 MG; Start 12/08/16 at 09:00 Dopamine HCl/ Dextrose 250 ml @ 3.788 mls/ hr TITRATE IV Last administered on 12/12/16 08:07; Admin Dose 32.194 MLS/HR; Start 12/08/16 at 08:40 Hypromellose 2 drop 2 drop TID BOTH EYES Last administered on 12/12/16 09:42; Admin Dose 2 DROP; Start 12/08/16 at 17:30 Vancomycin HCl/ Sodium Chloride (Vancocin/NS) 150 ml @ 75 mls/hr Q24H IVPB Last administered on 12/11/16 12:39; Admin Dose 75 MLS/HR; Start 12/10/16 at 12 :00 Miscellaneous Information 1 ONCE ONCE XX ; Start 12/12/16 at 11:00; Stop at 11:01 Norepinephrine 32 mg/Dextrose 250 ml @ 0.46 mls/hr TITRATE IV ; Start 12/12/16 at 09:00 Phenylephrine HCl 250 ml @ 75 mls/hr TITRATE IV Last administered on 09:52; Admin Dose 15 MLS/HR; Start 12/12/16 at 08:00; Stop 12/12/16 at 13: 00 Phenylephrine HCl/ Dextrose (Abel-Syneph/D5W) 500 ml @ 75 mls/hr TITRATE IV ; Start 12/12/16 at 13:00 KATLYN RODRIGES Dec 12, 2016 11:02
--- NOTE | 2016-12-12 11:16 | CONS ---
Date/Time of Note Date/Time of Note DATE: 12/12/16 TIME: 11:11 Assessment/Plan Assessment/Plan Additional Assessment/Plan Patient currently on TPN, dopamine at 20 mics per kilogram per minute, Abel- Synephrine at 300 mics per minute. Assessment and recommendations; 1. Patient admitted with hypotension due to advanced widely metastatic pancreatic cancer. 2. Severely emaciated state. 3. Extremely poor mental status. 4. Hypotension. 5. Severe thrombocytopenia. Continue current supportive care. Prognosis is extremely poor. Consultation Date/Type/Reason Admit Date/Time Nov 28, 2016 at 18:48 Initial Consult Date 12/06/16 Type of Consultation: Pulmonary Referring Provider: KATLYN RODRIGES 24 HR Interval Summary Free Text/Dictation Patient condition remains critical. Remains unresponsive. Remains extremely hypotensive requiring high-dose pressor support. General exam; middle-aged male, emaciated, currently unresponsive. Exam/Review of Systems Vital Signs Vitals Vital Signs Date Time Temp Pulse Resp B/P Pulse Ox O2 Delivery O2 Flow Rate FiO2 12/12/16 09:36 100 32 99 Nasal Cannula 5.0 12/12/16 08:15 71/59 12/12/16 08:00 97.2 12/12/16 00:31 60 Intake and Output 12/11/16 12/11/16 12/12/16 15:00 23:00 07:00 Intake Total 609.81 ml 507.499 ml 547.819 ml Output Total 235 ml 150 ml 130 ml Balance 374.81 ml 357.499 ml 417.819 ml Exam HEENT exam; supple neck, no JVD. No lymphadenopathy. Midline trachea. Patient has a multiple carious teeth. Chest exam; diminished breath sounds bilaterally. S1-S2 audible, no murmurs. Abdomen exam; soft, scaphoid. Bowel sounds are absent. Extremity exam; trace peripheral edema. There are multiple ecchymosis involving all 4 extremities and chest and abdominal wall. 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 Results Result Diagram: 12/12/16 0430 12/12/16 0430 Results 24 hrs Laboratory Tests Test 12/11/16 20:57 12/12/16 04:30 Bedside Glucose 180 White Blood Count 10.3 # Red Blood Count 3.52 L Hemoglobin 10.9 L Hematocrit 34.1 L Mean Corpuscular Volume 96.9 Mean Corpuscular Hemoglobin 31.0 Mean Corpuscular Hemoglobin Concent 32.0 Red Cell Distribution Width 15.3 H Platelet Count 12 #*L Mean Platelet Volume Neutrophils % Lymphocytes % Monocytes % Eosinophils % Basophils % Nucleated Red Blood Cells % 0.2 H Neutrophils # (Manual) 10 H Lymphocytes # Monocytes # Eosinophils # Basophils # Nucleated Red Blood Cells # Sodium Level 135 Potassium Level 5.1 Chloride Level 106 Carbon Dioxide Level 24 Anion Gap 10 # Blood Urea Nitrogen 117 H Creatinine 1.17 Glucose Level 178 Calcium Level 7.3 L Phosphorus Level 5.6 H Magnesium Level 2.1 Medications Medications Current Medications Ondansetron HCl (Zofran Inj) 4 mg Q6H PRN IV NAUSEA AND/OR VOMITING Last administered on 11/30/16 09:29; Admin Dose 4 MG; Start 11/28/16 at 20:00 Acetaminophen (Tylenol Tab) 650 mg Q6H PRN PO PAIN LEVEL 1-3 OR FEVER; Start at 20:00 Docusate Sodium (Colace) 100 mg Q12H PRN PO CONSTIPATION; Start 11/28/16 at 20: 00 Magnesium Hydroxide (Milk Of Mag) 30 ml DAILY PRN PO CONSTIPATION; Start at 20:00 Sodium Biphosphate/ Sodium Phosphate (Fleet Enema) 133 ml DAILY PRN [place] CONSTIPATION; Start 11/28/16 at 20:00 Hydralazine HCl (Apresoline) 10 mg Q6H PRN IV SBP > 180; Start 11/28/16 at 20:00 Diphenoxylate HCl/ Atropine (Lomotil Liquid Cup) 5 ml Q6H PRN GTB DIARRHEA; Start 11/28/16 at 20:00 Loratadine (Claritin) 10 mg DAILY PO Last administered on 12/04/16 09:04; Admin Dose 10 MG; Start 11/29/16 at 09:00 Hydromorphone HCl (Dilaudid) 1 mg Q2H PRN IV PAIN LEVEL 1-3 Last administered on 12/12/16 00:42; Admin Dose 1 MG; Start 11/29/16 at 11:00 Dexamethasone (Decadron) 6 mg BID IV Last administered on 12/12/16 09:42; Admin Dose 6 MG; Start 11/29/16 at 21:00 IV Flush (NS 10 ml) 10 ml PRN PRN IV IV PROTOCOL; Start 12/06/16 at 16:00 Dextrose (D50w Syringe) 25 ml Q15M PRN IV Till BS 80 mg/dL or above x2; Start 12/07/16 at 08:00 Dextrose 50 ml 50 ml Q15M PRN IV Till BS 80 mg/dL or above x2 Last administered on 12/07/16 18:37; Admin Dose 50 ML; Start 12/07/16 at 08:00 Total Parenteral Nutrition (Tpn) 1,000 ml @ 40 mls/hr Q24H IV Last administered on 12/11/16 12:39; Admin Dose 40 MLS/HR; Start 12/07/16 at 11:30 Famotidine 20 mg 20 mg BID IV Last administered on 12/12/16 09:42; Admin Dose 20 MG; Start 12/08/16 at 09:00 Dopamine HCl/ Dextrose 250 ml @ 3.788 mls/ hr TITRATE IV Last administered on 12/12/16 08:07; Admin Dose 32.194 MLS/HR; Start 12/08/16 at 08:40 Hypromellose 2 drop 2 drop TID BOTH EYES Last administered on 12/12/16 09:42; Admin Dose 2 DROP; Start 12/08/16 at 17:30 Vancomycin HCl 750 mg/Sodium Chloride 150 ml @ 75 mls/hr Q24H IVPB Last administered on 12/11/16 12:39; Admin Dose 75 MLS/HR; Start 12/10/16 at 12:00 Norepinephrine 32 mg/Dextrose 250 ml @ 0.46 mls/hr TITRATE IV ; Start 12/12/16 at 09:00 Phenylephrine HCl 250 ml @ 75 mls/hr TITRATE IV Last administered on 09:52; Admin Dose 15 MLS/HR; Start 12/12/16 at 08:00; Stop 12/12/16 at 13: 00 Phenylephrine HCl/ Dextrose (Able-Syneph/D5W) 500 ml @ 75 mls/hr TITRATE IV ; Start 12/12/16 at 13:00 PEPITO AUGUSTE Dec 12, 2016 11:16
[2016-12-12 11:19] LABS: ANISOCYTOSIS 1+ (0-0); MONOCYTES % (M) 7 % (0-11); PLATELET ESTIMATE DECREASED; POIKILOCYTOSIS 3+ (0-0); POLYCHROMASIA 1+ (0-0)
[2016-12-12] MEDS: TPN 1,000 ML IV SCH (13:32)
[2016-12-12] MEDS: PHENYLephrine 40 MG in DEXTROSE 5% 496 ML IV SCH ×3 (14:48→19:56)
[2016-12-12] MEDS ORDERED: ALBUMIN HUMAN 25% 100 ML IV ONE (20:30)
[2016-12-12] MEDS: SOD CHLORIDE 0.9% 1,000 ML IV SCH (20:36)
[2016-12-12] MEDS: VASOPRESSIN 60 UNIT in DEXTROSE 5% 57 ML IV SCH (21:59)
[2016-12-12] MEDS: PHENYLephrine 160 MG in DEXTROSE 5% 484 ML IV SCH (22:02)
[2016-12-12] MEDS: EPINEPHrine 4 MG in DEXTROSE 5% 246 ML IV SCH (22:49)
[2016-12-13] VITALS (41 sets, daily range): BP systolic 0–94; BP diastolic 0–76; PULSE 0–127; RESP 0–48
[2016-12-13] MEDS: HYDROmorphONE 1 MG/ML SYG IV PRN (03:00)
[2016-12-13] MEDS: DOPamine-D5W 1.6 MG/ML 250 ML IV SCH (04:12)
[2016-12-13] MEDS: PHENYLephrine 160 MG in DEXTROSE 5% 484 ML IV SCH (05:56)
[2016-12-13] MEDS: SOD CHLORIDE 0.9% 1,000 ML IV SCH (05:57)
[2016-12-13] MEDS: EPINEPHrine 4 MG in DEXTROSE 5% 246 ML IV SCH (07:16)
[2016-12-13] MEDS: HYPROMELLOSE 0.5% 15 ML OPH BOTH EYES SCH (08:33)
[2016-12-13] MEDS: VASOPRESSIN 60 UNIT in DEXTROSE 5% 57 ML IV SCH (08:35)
[2016-12-13] MEDS: DEXAMETHASONE 4 MG/ML 1 ML INJ IV SCH (08:37)
[2016-12-13] MEDS: LORATADINE 10 MG TAB PO SCH (08:38)
[2016-12-13] MEDS: FAMOTIDINE 20 MG INJ IV SCH (08:40)
[2016-12-13] MEDS: ALBUTEROL/IPRATROPIUM (NEB) 3 ML AMP HHN SCH (09:25)
--- NOTE | 2016-12-13 10:14 | CONS ---
Date/Time of Note Date/Time of Note DATE: 12/13/16 TIME: 10:12 Assessment/Plan Assessment/Plan Additional Assessment/Plan Patient currently on Levophed at 30 mics per minute, dopamine at 20 mics per kilogram per minute, phenylephrine at 300 mics per minute. Assessment and recommendations; 1. Patient admitted with severe shock, has advanced widely metastatic pancreatic cancer. 2. Profound hypotension. 3. Extreme cachectic state. Continue current treatment. Prognosis is dismal. Consultation Date/Type/Reason Admit Date/Time Nov 28, 2016 at 18:48 Initial Consult Date 12/06/16 Type of Consultation: Pulmonary Referring Provider: KATLYN RODRIGES 24 HR Interval Summary Free Text/Dictation Patient condition remains critical. Remains extremely hypotensive requiring high-dose combination pressor support. Remains completely unresponsive and and anuric. General examination; elderly male, emaciated. Unresponsive. Exam/Review of Systems Vital Signs Vitals Vital Signs Date Time Temp Pulse Resp B/P Pulse Ox O2 Delivery O2 Flow Rate FiO2 12/13/16 10:00 67 4 51/37 Non Rebreather 15.0 12/13/16 07:15 97.5 12/13/16 03:15 100 12/13/16 02:35 60 Intake and Output 12/12/16 12/12/16 12/13/16 15:00 23:00 07:00 Intake Total 891.069 ml 2418.870 ml 2179.365 ml Output Total 55 ml 38 ml 5 ml Balance 836.069 ml 2380.870 ml 2174.365 ml Exam HEENT exam; supple neck, no JVD. No lymphadenopathy. Midline trachea. Chest exam; diminished breath sounds throughout. S1-S2 audible, no murmurs. Regular rhythm. Abdomen exam; scaphoid, bowel sounds absent. Extremity exam; no peripheral edema. Extensive ecchymosis are present over the entire body. 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 Results Result Diagram: 12/12/160 12/12/16 043 Results 24 hrs Laboratory Tests Test 12/12/16 11:00 Vancomycin Level Trough 25.5 *H Medications Medications Current Medications Ondansetron HCl (Zofran Inj) 4 mg Q6H PRN IV NAUSEA AND/OR VOMITING Last administered on 11/30/16t 09:29; Admin Dose 4 MG; Start 11/28/16 at 20:00 Acetaminophen (Tylenol Tab) 650 mg Q6H PRN PO PAIN LEVEL 1-3 OR FEVER; Start at 20:00 Docusate Sodium (Colace) 100 mg Q12H PRN PO CONSTIPATION; Start 11/28/16 at 20: 00 Magnesium Hydroxide (Milk Of Mag) 30 ml DAILY PRN PO CONSTIPATION; Start at 20:00 Sodium Biphosphate/ Sodium Phosphate (Fleet Enema) 133 ml DAILY PRN [place] CONSTIPATION; Start 11/28/16 at 20:00 Hydralazine HCl (Apresoline) 10 mg Q6H PRN IV SBP > 180; Start 11/28/16 at 20:00 Diphenoxylate HCl/ Atropine (Lomotil Liquid Cup) 5 ml Q6H PRN GTB DIARRHEA; Start 11/28/16 at 20:00 Loratadine (Claritin) 10 mg DAILY PO Last administered on 12/04/16 09:04; Admin Dose 10 MG; Start 11/29/16 at 09:00 Hydromorphone HCl (Dilaudid) 1 mg Q2H PRN IV PAIN LEVEL 1-3 Last administered on 12/13/16 03:00; Admin Dose 1 MG; Start 11/29/16 at 11:00 Dexamethasone (Decadron) 6 mg BID IV Last administered on 12/13/16 08:37; Admin Dose 6 MG; Start 11/29/16 at 21:00 IV Flush (NS 10 ml) 10 ml PRN PRN IV IV PROTOCOL; Start 12/06/16 at 16:00 Dextrose (D50w Syringe) 25 ml Q15M PRN IV Till BS 80 mg/dL or above x2; Start 12/07/16 at 08:00 Dextrose 50 ml 50 ml Q15M PRN IV Till BS 80 mg/dL or above x2 Last administered on 12/07/16 18:37; Admin Dose 50 ML; Start 12/07/16 at 08:00 Total Parenteral Nutrition (Tpn) 1,000 ml @ 40 mls/hr Q24H IV Last administered on 12/12/16 13:32; Admin Dose 40 MLS/HR; Start 12/07/16 at 11:30 Famotidine 20 mg 20 mg BID IV Last administered on 12/13/16 08:40; Admin Dose 20 MG; Start 12/08/16 at 09:00 Dopamine HCl/ Dextrose 250 ml @ 3.788 mls/ hr TITRATE IV Last administered on 12/13/16 04:12; Admin Dose 37.875 MLS/HR; Start 12/08/16 at 08:40 Hypromellose 2 drop 2 drop TID BOTH EYES Last administered on 12/13/16 08:33; Admin Dose 2 DROP; Start 12/08/16 at 17:30 Norepinephrine 32 mg/Dextrose 250 ml @ 0.46 mls/hr TITRATE IV Last administered on 12/12/16 18:14; Admin Dose 0.93 MLS/HR; Start 12/12/16 at 09:00 Vancomycin HCl 100 ml @ 100 mls/hr Q48H IVPB ; Start 12/13/16 at 22:00 Vasopressin 60 unit/Dextrose 60 ml @ 0 mls/hr Q12H IV Last administered on 12/13 08:35; Admin Dose 2.4 MLS/HR; Start 12/12/16 at 20:30 Phenylephrine HCl 160 mg/Dextrose 500 ml @ 18.75 mls/ hr TITRATE IV Last administered on 12/13/16 05:56; Admin Dose 56.25 MLS/HR; Start 12/12/16 at 20: 30 Sodium Chloride 1,000 ml @ 100 mls/hr Q10H IV Last administered on 12/13/16 05:57; Admin Dose 100 MLS/HR; Start 12/12/16 at 20:30 Epinephrine/ Dextrose (EPINEPHrine/D5W) 250 ml @ 3.75 mls/hr TITRATE IV Last administered on 12/13/16 07:16; Admin Dose 37.5 MLS/HR; Start 12/12/16 at 22:30 PEPITO AUGUSTE Dec 13, 2016 10:14
--- NOTE | 2016-12-13 18:33 | DES ---
Date/Time of Note Date/Time of Note DATE: 12/13/16 TIME: 18:31 Discharge/ Summary Admission/Discharge Info Admit Date/Time Nov 28, 2016 at 18:48 Discharge Date/Time Dec 13, 2016 at 10:57 Final Diagnosis Cardiopulmonary arrest secondary to pancreatic cancer Preliminary Cause of Cardio pulmonary arrest secondary pancreatic cancer Hospital Course Patient is a 48-year-old male with a history of pancreatic cancer. Patient was being followed by oncology was no longer a candidate for chemotherapy secondary to worsening condition. Patient's family did not want hospice patient continued to deteriorate in-house. Patient was notably cachectic pancytopenia. Patient became obtunded, his blood pressure dropped and was started on multiple pressors, patient was a DNR and ultimately had a cardiac arrest. The patient was pronounced by supervisor char house. KATLYN RODRIGES Dec 13, 2016 18:32
[2016-12-13] MEDS ORDERED: VANCOMYCIN 500MG/NS (PMX) 100 ML IVPB SCH (22:00)
== END 2016-12-13 10:57 | disposition expired | DRG 435 ==
LOC: E/R 16:34 → MS4 18:48 → MS2 12-01 23:18 → TEL 12-06 08:33 → ICU 12-06 15:20
PROVIDERS: ADMIT Internal Medicine; ATTEND Internal Medicine
PROC: 0W9G30Z Drainage of Peritoneal Cavity with Drainage Device, Percutaneous Approach (ICD-10-PCS; principal; 2016-11-29)
PROC: 02HV33Z Insertion of Infusion Device into Superior Vena Cava, Percutaneous Approach (ICD-10-PCS; 2016-12-06)
PROC: 30233K1 Transfusion of Nonautologous Frozen Plasma into Peripheral Vein, Percutaneous Approach (ICD-10-PCS; 2016-12-07)
PROC: 30233R1 Transfusion of Nonautologous Platelets into Peripheral Vein, Percutaneous Approach (ICD-10-PCS; 2016-12-07)
DX: C25.9 Malignant neoplasm of pancreas, unspecified (principal); A41.9 Sepsis, unspecified organism; J96.01 Acute respiratory failure with hypoxia; R65.21 Severe sepsis with septic shock; D65 Disseminated intravascular coagulation [defibrination syndrome]; J69.0 Pneumonitis due to inhalation of food and vomit; R64 Cachexia; D61.818 Other pancytopenia; E43 Unspecified severe protein-calorie malnutrition; J18.9 Pneumonia, unspecified organism; J44.0 Chronic obstructive pulmonary disease with (acute) lower respiratory infection; C78.7 Secondary malignant neoplasm of liver and intrahepatic bile duct; R18.8 Other ascites; Z68.1 Body mass index [BMI] 19.9 or less, adult; G89.3 Neoplasm related pain (acute) (chronic); I46.9 Cardiac arrest, cause unspecified; Z72.0 Tobacco use; E87.5 Hyperkalemia; Z66 Do not resuscitate; R13.10 Dysphagia, unspecified
CPT/HCPCS: 36415; 36430; 36569; 36600; 71010; 74176; 76937; 80048; 80053; 80061; 80202; 81001; 81003; 82550; 82553; 82803; 82962; 83036; 83605; 83690; 83735; 83880; 84100; 84439; 84443; 84484; 85025; 85049; 85362; 85378; 85384; 85610; 85670; 85730; 86644; 86850; 86900; 86901; 86945; 87040; 87086; 92610; 93005; 93970; 94640; 94660; 94664; 96365; 96366; 96367; 96375; 97110; 97162; 97530; J1940; C9113; J0131; J0171; J0692; J1100; J1170; J1265; J1644; J2270; J2370; J2405; J2543; J3370; J3480; J7030; J7040; J7042; J7060; J7070; P9035; P9047; P9059